=== PATIENT | male | born 1930 | race Caucasian/White ===

== ENCOUNTER 2016-07-03 09:12 | Outpatient (CLI) | payer MEDICARE ==
[~2016-07-03 09:12] MED LIST: ALBUTEROL-200 PUFFS/ IH; ALBUTEROL2.5 MG/NEB IN; ALPRAZOLAM0.25 M2 PO; AMIODARONE 200200 MG PO; AMOXICILLIN 50500 MG PO; ASPIRIN 81MG TA81 MG PO; BUSPAR 10MG TAB10 MG PO; CEFDINIR 300MG300 MG PO; CLARITIN LIQUI-10 MG PO; CLARITIN10 MG OR; DOXYCYCLINE50 M1 PO; FUROSEMIDE 40MG40 M1 PO; GABAPENTIN100 M1 PO; GABAPENTIN100 MG PO; GABAPENTIN300 M1 PO; GLYCOLAX17 GM/DOSE PO; HYDROCODONE BIT1 T44 PO; HYDROCODONE-APA1 TA1 PO; KEFLEX 500MG.500 MG PO; LEVAQUIN500 MG PO; LEVOTHYROXIN0.112 M1 PO; LEVOTHYROXIN0.125 M1 PO; LIPOFLAVOVIT C1 EACH PO; LISINOPRIL 10MG10 MG PO; LISINOPRIL5 MG PO; LORTAB 5/3251 TAB PO; METHOCARBAMOL500 MG PO; METOPROLOL SUCC50 M2 PO; NORCO 325 MG-51 TAB PO; PANTOPRAZOLE SO40 M1 PO; PANTOPRAZOLE SO40 MG PO; PRAVASTATIN 40M40 MG PO; PREDNISONE 10MG10 MG PO; RANITIDINE HCL150 MG PO; RANITIDINE150 M1 PO; RESTORIL 15MG C15 MG PO; ROBAXIN 500 MG500 MG PO; SPIRIVA HA1 PUFF/INH IH; SPIRIVA18 MCG IH; TAMSULOSIN HYD0.4 MG PO; TEMAZEPAM15 MG PO; TESSALON PERLE100 MG PO; TOPROL XL 50MG50 MG PO; TUSSIONEX PENN115 ML PO; VITAMIN D1000 IU PO; WARFARIN 3MG TAB3 MG PO; WARFARIN SODIUM3 MG PO; XANAX 0.25MG0.25 MG PO; ZANTAC 150150 MG PO; [UNRECOGNIZED DRUG - OTHER] PO
== END 2016-07-03 11:32 ==
LOC: ACC 09:12
DX: Z95.0 Presence of cardiac pacemaker (principal); Z79.01 Long term (current) use of anticoagulants; Z51.81 Encounter for therapeutic drug level monitoring
CPT/HCPCS: G0463

== ENCOUNTER 2016-07-24 18:09 | Emergency (ER) | payer MEDICARE ==
[~2016-07-24] VITALS: Ht 175.3 cm; Wt 92.8 kg
--- NOTE | 2016-07-24 18:34 | Urgent Treatment Center Report ---
History of Present Issue Date/Time Seen by Provider 07/24/166 Visit Reason Pt arrived:Walked Presenting Problem:PT C/O COUGH, RUNNY NOSE, AND SORE THROAT. PT ALSO C/O "POPPING" IN HIS EARS. PT STATES HE CAN'T SLEEP D/T COUGHING Location if Accident: Onset of symptoms date/time:/ or onset unknown for:MEDICAL HX UNKNOWN Have you (or family members/close friends) recently traveled outside the [place]? N If Yes, where/when: Have you had exposure to infectious disease within the past month? TB? Other? Specify: Patient states that he has been having cough, runny nose sore throat and having pain and a popping in his left ear. States that coughing gets worse when he lays down at night ALLERGIES Coded Allergies: sulindac (Mild, JAUNDICE 07/07/16) esomeprazole (From Nexium) (Intermediate, N/V/D 07/07/16) niacin (Intermediate, FLUSHING 07/07/16) Home Medications Active Scripts Loratadine (Claritin) 10 MG PO DAILY #10 SGL Prov: 01/22/16 Reported Medications Warfarin Sodium (Warfarin 3MG) 1.5 MG PO MoWeFr LISINOPRIL (Lisinopril) 10 MG PO DAILY Metoprolol Succinate Xl (Toprol Xl) 50 MG PO BID WARFARIN SOD (Warfarin 3MG) 3 MG PO SuTuThSa Methocarbamol (Robaxin 500MG) 500 MG PO NIGHTLY Buspirone Hcl (Buspar 10MG) 10 MG PO BID #60 TAB Lisinopril 5 MG PO DAILY #90 TAB Polyethylene Glycol 3350 (Glycolax) 17 GM PO DAILY 30 Days Amiodarone Hcl (Amiodarone 200MG) 100 MG PO DAILY Alprazolam 0.25 MG PO TID PRN ANXIETY #1 TAB Furosemide 40 MG PO DAILY #1 TAB CHOLECALCIFEROL (VITAMIN D3) (Vitamin D3) 5,000 IUNITS PO SAT & WED Temazepam (Temazepam 15MG) 15 MG PO QHS Tiotropium [place] (Spiriva) 18 MCG IH DAILY PRN BREATHING Bioflav,Lemon/Vit Bcomp&C (Lipoflavovit Caplet) 1 EACH PO TID Levothyroxine Sodium (Levothyroxine 0.112MG) 0.112 MG PO DAILY #30 TAMSULOSIN HCL (Tamsulosin 0.4MG) 0.4 MG PO QHS Ranitidine Hcl (Zantac) 150 MG PO DAILY Albuterol (Albuterol-Hfa Inhaler) 1 PUFF IH PRN PRN BREATHING ASPIRIN (Aspirin) 81 MG PO DAILY Temazepam (Restoril 15MG) 15 MG PO QHS #30 PRAVASTATIN SODIUM (Pravastatin Sodium) 40 MG PO QHS History Medical History General CAD? No Angina: No VA: No Hypertension? Yes Hyperlipidemia? Yes CHF? No DVT? No PE? No COPD? Yes Asthma? No Anemia? No GERD? Yes Gastric ulcers? No GI Bleed? No Hernia? Yes Thyroid Problems? Yes Hypothyroidism? No CVA? No Seizures? No Diabetes? No Renal Insuffiency? No UTI? No Stones? No BPH? Yes GB Disease: No Nephritic Syndrome? No Asplenia? No Hepatitis? No Sickle Cell Disease? No Arthritis? Yes Migraines? No Cataracts? No Glaucoma? No MRSA? No HIV? No TB? No Anxiety? Yes Depression? 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 Respiratory cough Physical Exam Vital Signs Vital Signs Date Time Temp Pulse Resp B/P Pulse O2 O2 Flow FiO2 Ox Delivery Rate 07/24 1820 98.4 74 18 125/69 96 General Appearance normal appearance Ear, Nose, Throat sinus pain/drainage, nasal congestion, tonsillar swelling, Throat red, left ear bright red, tubes in place Respiratory Status Yes: trachea midline, chest symmetrical, non tender chest. No: respiratory distress. Cardiovascular normal exam, no peripheral edema, no gallop, no JVD, no murmur Neurologic alert, normal exam, no motor/sensory deficits, oriented x 3 Medical Decision Making LABS/Meds/Orders Pt receiving controlled substance in ED? No Results/Orders Laboratory Tests 07/24/161823: Influenza Type A Ag NOT DETECTED, Influenza Type B Ag NOT DETECTED, Group A Strep Screen NOT DETECTED Orders Procedure Date/time Status UTC STREP SCREEN 07/24 1823 Complete UTC FLU A,B 07/24 1823 Complete Departure Departure Disposition DC Home or Self Care(routine) Clinical Impression Primary Impression: Otitis media Qualifiers: Otitis media type: unspecified Laterality: left Chronicity: unspecified Qualified Code: H66.92 - Otitis media, unspecified, left ear Condition STABLE Referrals Rodney BLACK,Serafin (Family) Patient Instructions DI for Otitis Media (Middle Ear Infection)-Child Additional Instructions Take Medication as prescribed Follow up family doctor Return if needed Discharge Counseling Counseled pt/family regarding diagnosis, test results, medications/RX, home care Prescriptions Current Visit Scripts Amoxicillin Trihydrate (Amoxicillin 500MG) 500 MG PO Q12H #20 CAP DEXTROMETHORPHAN HBR (Tussin Cough) 15 MG PO BIDP PRN cough #40 ML at 1855
[2016-07-24 18:43] LABS: UTC STREP SCREEN NOT DETECTED (NOTDETECTED)
[2016-07-24] MEDS ORDERED: TOPCARE TU PO (18:51)
[2016-07-24] MEDS ORDERED: AMOXICILLIN 50500 MG PO (18:51)
[2016-07-24 19:06] VITALS: BP 125/69
== END 2016-07-24 19:06 | disposition home or self-care (01) ==
LOC: UTC 18:09
PROVIDERS: Nurse Practitioner
DX: H66.92 Otitis media, unspecified, left ear (principal); I10 Essential (primary) hypertension; J44.9 Chronic obstructive pulmonary disease, unspecified

== ENCOUNTER 2016-09-30 08:09 | Emergency (ER) | payer MEDICARE ==
[~2016-09-30] VITALS: Ht 175.3 cm; Wt 91.2 kg
[~2016-09-30 08:09] MED LIST changes: +TOPCARE TU PO
--- NOTE | 2016-09-30 08:30 | Emergency Room Report ---
History of Present Illness Time Seen by MD Christian Presenting Problem in Triage Pt arrived:Walked Presenting Problem:Pt reports that urine has been discolored for the past 3-4 days and he wants to make sure he doesn't "have blood in his kidneys." Pt denies any pain/discomfort. 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 N Clinical Suspician of Infection? N Mental Status: 1 - Regular (Normal Baseline) Sepsis Risk:Low Sepsis Risk Have you (or family members/close friends) recently traveled outside the [place]? N If Yes, where/when: Have you had exposure to infectious disease within the past month? N TB? Other? Specify: Source patient, RN notes reviewed Exam Limitations no limitations Comment Pt has noticed a dark urine for the past 3 to 4 days. 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 Cardiac Chest Pain Chest pain indicative of cardiac No ALLERGIES Coded Allergies: sulindac (Mild, JAUNDICE 07/07/16) esomeprazole (From Nexium) (Intermediate, N/V/D 07/07/16) niacin (Intermediate, FLUSHING 07/07/16) Home Medications Active Scripts Amoxicillin Trihydrate (Amoxicillin 500MG) 500 MG PO Q12H #20 CAP Prov: 07/24/16 Loratadine (Claritin) 10 MG PO DAILY #10 SGL Prov: 01/22/16 Reported Medications Warfarin Sodium (Warfarin 3MG) 1.5 MG PO MoWeFr Metoprolol Succinate Xl (Toprol Xl) 50 MG PO BID WARFARIN SOD (Warfarin 3MG) 3 MG PO SuTuThSa Methocarbamol (Robaxin 500MG) 500 MG PO NIGHTLY Buspirone Hcl (Buspar 10MG) 10 MG PO BID #60 TAB Lisinopril 5 MG PO DAILY #90 TAB Polyethylene Glycol 3350 (Glycolax) 17 GM PO DAILY 30 Days Amiodarone Hcl (Amiodarone 200MG) 100 MG PO DAILY Alprazolam 0.25 MG PO TID PRN ANXIETY #1 TAB Furosemide 40 MG PO DAILY #1 TAB CHOLECALCIFEROL (VITAMIN D3) (Vitamin D3) 5,000 IUNITS PO SAT & WED Tiotropium [place] (Spiriva) 18 MCG IH DAILY PRN BREATHING Bioflav,Lemon/Vit Bcomp&C (Lipoflavovit Caplet) 1 EACH PO TID Levothyroxine Sodium (Levothyroxine 0.112MG) 0.112 MG PO DAILY #30 TAMSULOSIN HCL (Tamsulosin 0.4MG) 0.4 MG PO QHS Ranitidine Hcl (Zantac) 150 MG PO DAILY Albuterol (Albuterol-Hfa Inhaler) 1 PUFF IH PRN PRN BREATHING ASPIRIN (Aspirin) 81 MG PO DAILY Temazepam (Restoril 15MG) 15 MG PO QHS #30 PRAVASTATIN SODIUM (Pravastatin Sodium) 40 MG PO QHS History Medical History General CAD? No Angina: No [place]: No Hypertension? Yes Hyperlipidemia? Yes CHF? No DVT? No PE? No COPD? Yes Asthma? No Anemia? No GERD? Yes Gastric ulcers? No GI Bleed? No Hernia? Yes Thyroid Problems? Yes Hypothyroidism? No CVA? No Seizures? No Diabetes? No Renal Insuffiency? No End Stage Renal Disease? No UTI? No Stones? No BPH? Yes GB Disease: No Nephritic Syndrome? No Asplenia? No Hepatitis? No Sickle Cell Disease? No Arthritis? Yes Migraines? No Cataracts? No Glaucoma? No MRSA? No HIV? No TB? No Anxiety? Yes Depression? 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 No Immunization Hx DT/Tetanus 1-4 Years Ago Flu 2015-17FSN Pneumonia Refuses Surgical Hx Previous Surgery?Y PACEMAKER HEART STENTS GALLBLADDER COLON RESECTION CATARACTS EAR TUBES 12/13 LESIONS FACE HERNIA SURGERY Family History Family Hx Diabetes No CAD Yes Hypertension Yes Hyperlipidemia Yes Cancer Yes TB No Social History Smoking Hx Smoker: Former Smoker Tobacco: No Packs/day N/A Alcohol Alcohol: No Review of Systems All Other Systems Reviewed and Negative Constitutional see HPI Cardiovascular see HPI Genitourinary see HPI. Physical Exam Vital Signs Vital Signs Date Time Temp Pulse Resp B/P Pulse O2 O2 Flow FiO2 Ox Delivery Rate 09/30 0943 98.0 70 18 119/66 96 09/30 0900 97.9 78 18 114/58 95 09/30 0815 97.8 70 18 117/64 95 General Appearance normal appearance, WD/WN, no apparent distress Respiratory Status No: respiratory distress. Lung Sounds bilateral: normal breath sounds. 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 No Results/Orders Laboratory Tests 09/30/16 0844: Sodium 143, Potassium 3.6, Chloride 106, Carbon Dioxide 28, BUN 14, Creatinine 1.7 H, Estimated Creat Clear 40 L, Estimated GFR (MDRD) 38, Glucose 114 H, Calcium 8.3 L, Total Bilirubin 0.9, AST 24, ALT 33, Alkaline Phosphatase 81, Total Protein 6.9, Albumin 3.8, Globulin 3.1, Albumin/Globulin Ratio 1.2, PT 31.7 H, INR 2.96 H, WBC 4.0 L, RBC 4.18 L, Hgb 13.9 L, Hct 41.2 L, MCV 98.5 H, RDW 13.5, Plt Count 158, MPV 6.0 L, Gran % 70.9, Gran # 2.8, Lymphocytes % 21.5, Monocytes % 4.1, Eosinophils % 2.8, Basophils % 0.6, Lymphocytes # 0.9, Monocytes # 0.2, Eosinophils # 0.1, Basophils # 0.0, PUBS MCHC 33.8, MCH 33.3 H 09/30/16 0824: Urine Color SHANELLE, Urine Appearance TURBID, Urine pH 6.5, Ur Specific [place] 1.020, Urine Protein 1+ H, Urine Ketones NEGATIVE, Urine Blood 3+ H, Urine Nitrate NEGATIVE, Urine Bilirubin NEGATIVE, Urine Urobilinogen 4.0, Ur Leukocyte Esterase TRACE H, Urine RBC 50-100, Urine WBC OCC, Urine Bacteria TRACE, Urine Mucus OCC, Urine Glucose NEGATIVE Orders Procedure Date/time Status KUB (SINGLE VIEW) 09/30 899 Active URINALYSIS/COMPLETE 09/30 829 Complete PROTHROMBIN TIME 09/30 829 Complete CBC WITH AUTO DIFF 09/30 829 Complete CHEM 12 PROFILE 09/30 829 Complete XRAY/CT/US XRAY/CT/US XRAY abdomen XR interpretation by reviewed by me Xray Results large stone in bladder Departure Departure Time of Disposition 0956 Disposition DC Home or Self Care(routine) Clinical Impression Primary Impression: Hematuria Secondary Impressions: Bladder stone, Cystitis with hematuria Condition STABLE Referrals Serafin Steevns MD (Family): 2 Days-Call Office Patient Instructions Acute Cystitis, Blood in Urine, Cystolitholapaxy, DI for Acute Cystitis, DI for Hematuria Additional Instructions Followup with Dr Stevens in 2 days to get referral to get Bladder stone removed and to recheck Urine Discharge Counseling Counseled pt/family regarding diagnosis, test results, medications/RX, home care, follow up needs Prescriptions Current Visit Scripts Amoxicillin (Amoxicillin 500MG) 500 MG PO TID #30 CAP ED Critical Care Critical Care No If Critical Care minutes are documented, the time involved in the performance of seperately reportable procedures was not counted toward critical care time documented. I directly delivered medical care to this critically ill and/or injured patient. Timely evaluation and treatment was necessary to address the significant organ system(s) dysfunction present in this patient. at 0913
[2016-09-30 08:38] LABS: URINE BLOOD 3+ (NEG)
[2016-09-30 08:42] LABS: URINE BILIRUBIN - DIPSTICK NEGATIVE (NEG)
[2016-09-30 08:52] LABS: HEMOGLOBIN 13.9 g/dL (14.1-18.0); LYMPH # 0.9 K/mm3 (0.7-4.5); LYMPH % 21.5 % (10-50)
[2016-09-30] MEDS ORDERED: AMOXICOT500 MG PO (09:59)
[2016-09-30 10:05] VITALS: BP 139/76
--- NOTE | 2016-10-01 14:54 | RADIOLOGY REPORT PS360 ---
KUB (SINGLE VIEW) Ordering Physician: Cornelia Pierre MD Patient Age: 86 years: Male HISTORY: hematuria previous cholecystectomy. History of obstruction. Hernia repair 2 years ago. TECHNIQUE: Supine AP image abdomen radiograph. . COMPARISON is made to previous CT abdomen 07/19/2014 which is helpful FINDINGS. No bowel dilatation or obstruction. Upper generous stool at the right colon with moderate stool throughout the left colon. Minimal stool rectosigmoid. Minimal small bowel gas Suggestion mild Splenomegaly.. Radiographically Spleen Measures up to 16 cm length on the supine filmClinical correlation required. Stable 16 mm x 10 mm mm calcified density at the pelvis. No urinary tract calculi evident There is a vague round soft tissue density measuring 3 cm] quadrant on this study but I suspect this is the portion of the liver outlined fatty tissue as seen on prior CT from 2014. Doubt of significance. Degenerative changes lumbar spine with disc space narrowing most evident L4/5 the right. Also disc space narrowing from the L3/4. Marginal osteophytes. IMPRESSION: Splenomegaly suggested. Warrants clinical correlation Otherwise Nonspecific bowel gas pattern. No acute findings abdomen/pelvis on plain film Moderate/generous stool right colon observed with Less evident minimal stool and gas throughout the remainder of colon ---Note please fax report to ER-
--- OUTSIDE RECORDS SUMMARY | 2016-10-01 22:12 | External Medical Summary Rpt ---
Author Author , Organization [employer] Address Unknown Phone Unavailable Purpose Continuity of Care Document - through 2016 Problems Code Diagnosis DOS Provider Status I48.0 PAROXYSMAL ATRIAL FIBRILLATIO N I48.91 UNSPECIFIED ATRIAL FIBRILLATIO N J02.9 ACUTE PHARYNGITIS , UNSPECIFIED J06.9 ACUTE UPPER RESPIRATORY INFECTION, UNSPECIFIED J30.2 OTHER SEASONAL ALLERGIC RHINITIS J32.9 CHRONIC SINUSITIS, UNSPECIFIED K21.9 GASTRO-ESOP HAGEAL REFLUX DISEASE WITHOUT ESOPHAGITIS K29.70 GASTRITIS, UNSPECIFIED , WITHOUT BLEEDING N21.0 CALCULUS IN BLADDER N28.9 DISORDER OF KIDNEY AND URETER, UNSPECIFIED N30.91 CYSTITIS, UNSPECIFIED WITH HEMATURIA R07.9 CHEST PAIN, UNSPECIFIED R31.9 HEMATURIA, UNSPECIFIED R79.1 ABNORMAL COAGULATION PROFILE Z53.21 PROC/TRTMT NOT CRD OUT D/T PT [facility] SEEN BY [facility]
--- OUTSIDE RECORDS SUMMARY | 2016-10-01 22:12 | External Medical Summary Rpt ---
Demographics Preferred Language Sierra Leonean Marital Status Unknown Quaker Affiliation Unknown Race Unknown Ethnic Group Unknown Author Author , Organization [employer] Address Unknown Phone Unavailable Purpose Continuity of Care Document - through 2016 Immunization No patient found.
--- OUTSIDE RECORDS SUMMARY | 2016-10-01 22:12 | External Medical Summary Rpt ---
Author Author [employer] Organization [employer] Address Unknown Phone Unavailable Purpose Continuity of Care Document - through 2016
--- OUTSIDE RECORDS SUMMARY | 2016-10-01 22:12 | External Medical Summary Rpt ---
Demographics Preferred Language Italian Marital Status Unknown Zoroastrian Affiliation Unknown Race Unknown Ethnic Group Unknown Author Author , Organization [employer] Address Unknown Phone Unavailable Purpose Continuity of Care Document - through 2016 Immunization No patient found.
--- OUTSIDE RECORDS SUMMARY | 2016-10-01 22:12 | External Medical Summary Rpt ---
Author Author ONI Holland, [employer] Organization [employer] Address Unknown Phone Unavailable Payers Section Payer Plan Name Group ID Member ID Coverage Coverage Start End Date Date MEDICARE "" [id number] No No A informati informati on in on in source source data data UMR "" [id number] No No 809 informati informati on in on in source source data data
--- OUTSIDE RECORDS SUMMARY | 2016-10-01 22:12 | External Medical Summary Rpt ---
[...] OUT D/T PT [facility]
--- OUTSIDE RECORDS SUMMARY | 2016-10-01 22:12 | External Medical Summary Rpt ---
Author Author ONI Holland, [employer] Organization [employer] Address Unknown Phone Unavailable Payers Section Payer Plan Name Group ID Member ID Coverage Coverage Start End Date Date MEDICARE "" [id number] No No A informati informati on in on in source source data data UMR "" [id number] No No 809 informati informati on in on in source source data data
--- OUTSIDE RECORDS SUMMARY | 2016-10-01 22:13 | External Medical Summary Rpt ---
[...] OUT D/T PT LV [facility]F SEEN BY [facility]
--- OUTSIDE RECORDS SUMMARY | 2016-10-01 22:13 | External Medical Summary Rpt ---
Demographics Preferred Language Botswanan Marital Status Unknown Denominational Affiliation Unknown Race Unknown Ethnic Group Unknown Author Author , Organization [employer] Address Unknown Phone Unavailable Purpose Continuity of Care Document - through 2016 Immunization No patient found.
--- OUTSIDE RECORDS SUMMARY | 2016-10-01 22:13 | External Medical Summary Rpt ---
Author Author ONI Holland, [employer] Organization [employer] Address Unknown Phone Unavailable Payers Section Payer Plan Name Group ID Member ID Coverage Coverage Start End Date Date MEDICARE "" [id number] No No A informati informati on in on in source source data data UMR "" [id number] No No 809 informati informati on in on in source source data data
--- OUTSIDE RECORDS SUMMARY | 2016-10-01 22:13 | External Medical Summary Rpt ---
Demographics Preferred Language Ugandan Marital Status Unknown Tenriism Affiliation Unknown Race Unknown Ethnic Group Unknown Author Author , Organization [employer] Address Unknown Phone Unavailable Purpose Continuity of Care Document - through 2016 Immunization No patient found.
--- OUTSIDE RECORDS SUMMARY | 2016-10-01 22:13 | External Medical Summary Rpt ---
Author Author ONI Holland, [employer] Organization [employer] Address Unknown Phone Unavailable Payers Section Payer Plan Name Group ID Member ID Coverage Coverage Start End Date Date MEDICARE "" [id number] No No A informati informati on in on in source source data data UMR "" [id number] No No 809 informati informati on in on in source source data data
--- OUTSIDE RECORDS SUMMARY | 2016-10-01 22:13 | External Medical Summary Rpt ---
[...] OUT D/T PT LV [facility]F SEEN BY [facility]
== END 2016-09-30 10:05 | disposition home or self-care (01) ==
LOC: ER 08:09
PROVIDERS: General Practice
DX: N30.01 Acute cystitis with hematuria (principal); N21.0 Calculus in bladder; K21.9 Gastro-esophageal reflux disease without esophagitis; I48.2 Chronic atrial fibrillation; Z79.01 Long term (current) use of anticoagulants; Z95.0 Presence of cardiac pacemaker

== ENCOUNTER 2016-10-03 09:15 | Outpatient (CLI) | payer MEDICARE ==
[~2016-10-03 09:15] MED LIST changes: +AMOXICOT500 MG PO
== END 2016-10-03 13:26 ==
LOC: ACC 09:15
DX: Z95.0 Presence of cardiac pacemaker (principal); Z79.01 Long term (current) use of anticoagulants; Z51.81 Encounter for therapeutic drug level monitoring
CPT/HCPCS: G0463

== ENCOUNTER 2016-11-07 11:59 | Outpatient (CLI) | payer MEDICARE ==
[~2016-11-07 11:59] MED LIST changes: +LEVOTHYROXIN0.125 MG PO; +OXYGEN IH; +OXYGEN2 IH
== END 2016-11-07 16:23 ==
LOC: ACC 11:59
DX: Z95.0 Presence of cardiac pacemaker (principal); Z79.01 Long term (current) use of anticoagulants; Z51.81 Encounter for therapeutic drug level monitoring
CPT/HCPCS: G0463

== ENCOUNTER 2016-12-30 09:31 | Emergency (ER) | payer MEDICARE ==
[~2016-12-30] VITALS: Ht 175.3 cm; Wt 86.2 kg
[~2016-12-30 09:31] MED LIST changes: +CARAFATE1 GM PO
--- OUTSIDE RECORDS SUMMARY | 2016-12-30 10:04 | External Medical Summary Rpt ---
Demographics Preferred Language Kazakh Marital Status Unknown Catholic Affiliation Unknown Race Unknown Ethnic Group Unknown Author Author , SHARMILA BUNN Address Unknown Phone Immunization Unable to retrieve immunization data due to connection failure with Immunization Registry. Please try again later.
--- OUTSIDE RECORDS SUMMARY | 2016-12-30 10:04 | External Medical Summary Rpt ---
Author Author , ONI BUNN Address Unknown Phone [email or web address] Purpose Continuity of Care Document - 10-28-2016 through 2016 Results Labs Lab Lab Date Result Refere Interp Status Commen Order Detail nces retati t Range on Differential panel, method unspecified - (10-31-2016 06:13) LYMPH 10 % 10% - Normal complet 017 50% ed 06:13 Macrocy 1+ complet felix 017 ed [Presen 06:13 ce] in Blood Platele SLIGHT complet ts 017 DECREAS ed [Presen 06:13 E ce] in Blood by Light microsc opy Differential panel, method unspecified - (10-29-2016 06:25) LYMPH 4 % 10% - Low complet 017 50% ed 06:25 Macrocy 1+ complet felix 017 ed [Presen 06:25 ce] in Blood Platele SLIGHT complet ts 017 DECREAS ed [Presen 06:25 E ce] in Blood by Light microsc opy Toxic 1+ complet granule 017 ed s 06:25 [Presen ce] in Blood by Light microsc opy Legionella pneumophila 1 Ag [Presence] in Urine by Immunoassay (10-28-2016 15:43) Legione Negativ Negativ complet lla 017 e e ed pneumop 15:43 gino 1 Ag [Presen ce] in Urine by Immunoa ssay Gas panel in Arterial blood (10-28-2016 11:19) Arteria ACCEPTA complet l 017 BLE ed patency 11:19 Wrist artery --pre arteria l punctur e SOURCE L complet 017 RADIAL ed 11:19 Mycoplasma pneumoniae IgM Ab [Presence] in Serum by Immunoassay (10-28-2016 10:10) Mycopla NON-BARB NONREAC complet sma 017 CTIVE TIVE ed pneumon 10:10 iae IgM Ab [Presen ce] in Serum by Immunoa ssay Influenza virus A+B Ag [Presence] in Unspecified specimen (10-28-2016 09:55) Influen NOT NOT complet za 017 DETECTE DETECTD ed virus A 09:55 D Ag [Presen ce] in Unspeci fied specime n Influen NOT NOT complet za 017 DETECTE DETECTD ed virus B 09:55 D Ag [Presen ce] in Unspeci fied specime n Urinalysis dipstick W Reflex Microscopic panel in Urine (10-28-2016 09:52) Appeara Clear CLEAR complet nce of ed Urine 09:52 Bilirub SMALL NEG complet in 017 ed [Presen 09:52 ce] in Urine by Test strip Erythro MODERAT NEG complet cytes 017 E ed [Presen 09:52 ce] in Urine Color YELLOW YELLOW complet of 017 ed Urine 09:52 Ketones NEGATIV NEG complet 017 E ed [Presen 09:52 ce] in Urine by Automat ed test strip Mucus NEGATIV NEG complet [Presen 017 E ed ce] in 09:52 Urine sedimen t by Light microsc opy Nitrite NEGATIV NEG complet 017 E ed [Presen 09:52 ce] in Urine by Test strip Urobili 1.0 NEG complet nogen 017 ed [Presen 09:52 ce] in Urine by Test strip
--- OUTSIDE RECORDS SUMMARY | 2016-12-30 10:04 | External Medical Summary Rpt ---
Author Author , ONI BUNN Address Unknown Phone [email or web address] Purpose Continuity of Care Document - 10-28-2016 [...]
--- OUTSIDE RECORDS SUMMARY | 2016-12-30 10:04 | External Medical Summary Rpt ---
Demographics Preferred Language [place]az[place] Marital Status Unknown Confucianism Affiliation Unknown Race Unknown Ethnic Group Unknown Author Author , SHARMILA BUNN Address Unknown Phone Immunization Unable to retrieve immunization data due to connection failure with Immunization Registry. Please try again later.
[2016-12-30 10:06] LABS: HEMOGLOBIN 12.1 g/dL (14.1-18.0); LYMPH # 1.1 K/mm3 (0.7-4.5); LYMPH % 20.5 % (10-50)
--- OUTSIDE RECORDS SUMMARY | 2016-12-30 10:06 | External Medical Summary Rpt ---
Author Author ONI Holland, KERENNICKO [employer] Organization [employer] Address Unknown Phone Unavailable Payers Section Payer Plan Name Group ID Member ID Coverage Coverage Start End Date Date MEDICARE "" [id number] No No A informati informati on in on in source source data data UMR "" [id number] No No 809 informati informati on in on in source source data data Results INR in Blood by Coagulation assay Observa Value Referen Units Interpr Notes Date tion ce etation Range INR in 0.9 - 1.1 No High Results Dec 22 Blood by informati sent to: 2016 Coagulati on in [facility] 11:00 AM on assay source Ginger BLACK data n 12/22/16 [id number] Trae jackson mmlea Pharmacis t recommend ation for Warfarint herapy is: PATIENT INR 2.3 TODAY VIA FINGERSTI CK.RECOMM ENDED PATIENT CONTINUE WITH CURRENT DOSE OF WARFARIN3 MG ON SUN/SUN/ HU/SUN; 1.5 MG ON SUN/SUN/ RI.FO R DETAILED INFORMATI ON-PLEASE REVIEW PROGRESS NOTEI N THE ASSESSMEN TS AND ANTICOAGU LATION CLINIC SECTIONAN TICOAGULA TION CLINIC IN PCI/CLINI VLADIMIR REVIEWIND ICATION INR RANGETHER APY FOR DVT, PE, ATRIAL FIB; 2.0 - 3.0PROPHY LAXIS FOR VTETHERAP Y FOR MECHANICA L HEART 2.5 - 3.5VALVE; PREVENTIO N OF SYSTEMICE MBOLISM SECONDARY TO AMI INR in Blood by Coagulation assay Observa Value Referen Units Interpr Notes Date tion ce etation Range IS PATIENT ON ANTICOAGULANTS? Y LIST ANTICOAGULANTS: WARFARIN INR in 0.9 - 1.1 No High INDICATIO Dec 18 Blood by informati N 2016 1:55 Coagulati on in AM on assay source INR data RANGETHER APY FOR DVT, PE, ATRIAL FIB; 2.0 - 3.0PROPHY LAXIS FOR VTETHERAP Y FOR MECHANICA L HEART 2.5 - 3.5VALVE; PREVENTIO N OF SYSTEMICE MBOLISM SECONDARY TO AMI Prothromb 9.4 - SECONDS High No Dec 18 in time 11.8 informati 2016 1:55 (PT) in on in AM Platelet source poor data plasma by Coagulati on assay CBC W Auto Differential panel in Blood Observa Value Referen Units Interpr Notes Date tion ce etation Range Basophils 0 - 0.2 K/MM3 Normal No Dec 18 informati 2016 1:55 [#/volume on in AM ] in source Blood by data Automated count Basophils 0.1 - 2.0 % Normal No Dec 18 /100 informati 2017 1:55 leukocyte on in AM s in source Blood by data Automated count Eosinophi 0.0 - 0.4 K/mm3 Normal No Dec 18 ls informati 2016 1:55 [#/volume on in AM ] in source Blood by data Automated count Eosinophi 0.1 - % Normal No Dec 18 ls/100 12.0 informati 2016 1:55 leukocyte on in AM s in source Blood by data Automated count Granulocy 1.3 - 8.0 K/mm3 Normal No Dec 18 felix informati 2016 1:55 [#/volume on in AM ] in source Blood by data Automated count Granulocy 37.0 - % Normal No Dec 18 felix/100 80.0 informati 2016 1:55 leukocyte on in AM s in source Blood by data Automated count Hematocri 42.0 - % Low No Dec 18 t [Volume 52.0 informati 2016 1:55 on in AM Fraction] source of Blood data Hemoglobi 14.1 - g/dL Low No Dec 18 n 18.0 informati 2016 1:55 [Mass/vol on in AM ume] in source Blood data Lymphocyt 0.7 - 4.5 K/mm3 Normal No Dec 18 es informati 2016 1:55 [#/volume on in AM ] in source Unspecifi data ed specimen by Automated count Lymphocyt 10 - 50 % Normal Dec 18 es informati 2016 1:55 [#/volume on in AM ] in source Unspecifi data ed specimen by Automated count Erythrocy 27 - 31.2 pg High No Dec 18 te mean informati 2016 1:55 corpuscul on in AM ar source hemoglobi data n [Entitic mass] Erythrocy 31.8 - g/dl Normal No Dec 18 te mean 35.4 informati 2016 1:55 corpuscul on in AM ar source hemoglobi data n concentra tion [Mass/vol ume] by Automated count Erythrocy 82.2 - fl Normal No Dec 18 te mean 97.8 informati 2016 1:55 corpuscul on in AM ar volume source [Entitic data volume] by Automated count Monocytes 0.1 - 1.0 K/mm3 Normal No Dec 18 informati 2016 1:55 [#/volume on in AM ] in source Blood by data Automated count Monocytes 1.7 - 9.3 % Normal No Dec 18 /100 informati 2016 1:55 leukocyte on in AM s in source Blood by data Automated count Platelet 7.4 - fl Low No Dec 18 mean 10.4 informati 2016 1:55 volume on in AM [Entitic source volume] data in Blood by Automated count Platelets 142 - 424 K/mm3 Normal No Dec 18 inform2016 1:55 [#/volume on in AM ] in source Blood data Erythrocy 4.6 - 6.2 M/mm3 Low No Dec 18 felix informati 2016 1:55 [#/volume on in AM ] in source Amniotic data fluid Erythrocy 11.5 - % Normal No Dec 18 te 17.5 informati 2016 1:55 distribut on in AM ion width source [Entitic data volume] by Automated count Leukocyte 4.8 - K/MM3 Low No Dec 18 s 10.8 informati 2016 1:55 [#/volume on in AM ] in source Blood data INR in Blood by Coagulation assay Observa Value Referen Units Interpr Notes Date tion ce etation Range INR in 0.9 - 1.1 No High Results Dec 04 Blood by informati sent to: 2017 9:45 Coagulati on in [place] AM on assay source Ginger BLACK data n 12/04/16 [id number] Trae jackson mmy Pharmacis t recommend ation for Warfarint herapy is: PATIENT INR 1.9 TODAY VIA FINGERSTI CK.RECOMM ENDED PATIENT INCREASE WEEKLY DOSE BY 1.5 MG TOWARFARI N 3 MG ON SUN/SUN/T HU/SAT; 1.5 MG ON SUN/SUN/F RI.WILL FOLLOW UP IN 3 WEEKS. *FOR DETAILED INFORMATI ON-PLEASE REVIEW PROGRESS NOTEI N THE ASSESSMEN TS AND ANTICOAGU LATION CLINIC SECTIONAN TICOAGULA TION CLINIC IN PCI/CLINI VLADIMIR REVIEWIND ICATION INR RANGETHER APY FOR DVT, PE, ATRIAL FIB; 2.0 - 3.0PROPHY LAXIS FOR VTETHERAP Y FOR MECHANICA L HEART 2.5 - 3.5VALVE; PREVENTIO N OF SYSTEMICE MBOLISM SECONDARY TO AMI INR in Blood by Coagulation assay Observa Value Referen Units Interpr Notes Date tion ce etation Range IS PATIENT ON ANTICOAGULANTS? Y LIST ANTICOAGULANTS: COUMADIN INR in 0.9 - 1.1 No High INDICATIO Nov 26 Blood by informati N 2017 4:55 Coagulati on in PM on assay source INR data RANGETHER APY FOR DVT, PE, ATRIAL FIB; 2.0 - 3.0PROPHY LAXIS FOR VTETHERAP Y FOR MECHANICA L HEART 2.5 - 3.5VALVE; PREVENTIO N OF SYSTEMICE MBOLISM SECONDARY TO AMI Prothromb 9.4 - SECONDS High No Nov 26 in time 11.8 informati 2017 4:55 (PT) in on in PM Platelet source poor data plasma by Coagulati on assay Amylase [Enzymatic activity/volume] in Serum or Plasma Observa Value Referen Units Interpr Notes Date tion ce etation Range Amylase 25 - 115 U/L Normal No Nov 26 [Enzymati informati 2017 4:55 c on in PM activity/ source volume] data in Serum or Plasma Comprehensive metabolic 2000 panel in Serum or Plasma Observa Value Referen Units Interpr Notes Date tion ce etation Range Albumin/G 1.1 - 1.8 No Normal No Nov 26 lobulin informati informati 2017 4:55 [Mass on in on in PM ratio] in source source Serum or data data Plasma Albumin 3.4 - 5.0 gm/dL Normal No Nov 26 [Mass/vol informati 2017 4:55 ume] in on in PM Serum or source Plasma data Alkaline 46 - 116 U/L Normal No Nov 26 phosphata informati 2017 4:55 se on in PM [Enzymati source c data activity/ volume] in Serum or Plasma Bilirubin 0.2 - 1.0 mg/dL Normal No Nov 26 .total informati 2017 4:55 [Mass/vol on in PM ume] in source Serum or data Plasma Urea 7 - 18 mg/dL High No Nov 26 nitrogen informati 2017 4:55 [Mass/vol on in PM ume] in source Serum or data Plasma Calcium 8.5 - mg/dL Normal No Nov 26 [Mass/vol 10.1 informati 2016 4:55 ume] in on in PM Serum or source Plasma data Chloride 98 - 107 mmoL/L Normal No Nov 26 [Moles/vo informati 2016 4:55 lume] in on in PM Serum or source Plasma data Carbon 21.0 - mmoL/L High No Nov 26 dioxide, 32.0 informati 2017 4:55 total on in PM [Moles/vo source lume] in data Serum or Plasma Creatinin 0.70 - mg/dL High No Nov 26 e 1.30 informati 2017 4:55 [Mass/vol on in PM ume] in source Serum or data Plasma Creatinin 50 - 200 ML/MIN Low No Nov 26 e renal informati 2016 4:55 clearance on in PM source predicted data by Cockcroft -Gault formula Estimated >60 ML/MIN No REFERENCE Nov 26 informati RANGE: 2017 4:55 glomerula on in >60 PM r source ML/MIN/1. filtratio data 73 SQUARE n rate METERSIf (GF this patient is -A merican, then multiply theresult by 1.210. Globulin 1.3 - 3.2 gm/dL Normal No Nov 26 [Mass/vol informati 2016 4:55 ume] in on in PM Serum source data Glucose 74 - 106 mg/dL High No Nov 26 [Mass/vol informati 2016 4:55 ume] in on in PM Serum or source Plasma data Potassium 3.5 - 5.1 mmoL/L Normal No Nov 26 informati 2016 4:55 [Moles/vo on in PM lume] in source Serum or data Plasma Sodium 136 - 145 mmoL/L Normal No Nov 26 [Moles/vo informati 2017 4:55 lume] in on in PM Serum or source Plasma data Aspartate 15 - 37 U/L Low No Nov 26 informati 2016 4:55 aminotran on in PM sferase source [Enzymati data c activity/ volume] in Serum or Plasma Alanine 12 - 78 U/L Normal No Nov 26 aminotran informati 2016 4:55 sferase on in PM [Enzymati source c data activity/ volume] in Serum or Plasma Protein 6.4 - 8.2 gm/dL Normal No Nov 26 [Mass/vol informati 2017 4:55 ume] in on in PM Serum or source Plasma data Lipase [Enzymatic activity/volume] in Serum or Plasma Observa Value Referen Units Interpr Notes Date tion ce etation Range Lipase 73 - 393 U/L Normal No Nov 26 [Enzymati informati 2016 4:55 c on in PM activity/ source volume] data in Serum or Plasma CBC W Auto Differential panel in Blood Observa Value Referen Units Interpr Notes Date tion ce etation Range Basophils 0 - 0.2 K/MM3 Normal No Nov 26 informati 2016 4:55 [#/volume on in PM ] in source Blood by data Automated count Basophils 0.1 - 2.0 % Normal No Nov 26 /100 informati 2016 4:55 leukocyte on in PM s in source Blood by data Automated count Eosinophi 0.0 - 0.4 K/mm3 Normal No Nov 26 ls informati 2016 4:55 [#/volume on in PM ] in source Blood by data Automated count Eosinophi 0.1 - % Normal No Nov 26 ls/100 12.0 informati 2016 4:55 leukocyte on in PM s in source Blood by data Automated count Granulocy 1.3 - 8.0 K/mm3 Normal No Nov 26 felix informati 2016 4:55 [#/volume on in PM ] in source Blood by data Automated count Granulocy 37.0 - % Normal No Nov 26 felix/100 80.0 informati 2016 4:55 leukocyte on in PM s in source Blood by data Automated count Hematocri 42.0 - % Low No Nov 26 t [Volume 52.0 informati 2016 4:55 on in PM Fraction] source of Blood data Hemoglobi 14.1 - g/dL Low No Nov 26 n 18.0 informati 2016 4:55 [Mass/vol on in PM ume] in source Blood data Lymphocyt 0.7 - 4.5 K/mm3 Normal No Nov 26 es informati 2016 4:55 [#/volume on in PM ] in source Unspecifi data ed specimen by Automated count Lymphocyt 10 - 50 % Normal No Nov 26 es informati 2016 4:55 [#/volume on in PM ] in source Unspecifi data ed specimen by Automated count Erythrocy 27 - 31.2 pg High No Nov 26 te mean informati 2016 4:55 corpuscul on in PM ar source hemoglobi data n [Entitic mass] Erythrocy 31.8 - g/dl Normal No Nov 25 te mean 35.4 informati 2017 4:55 corpuscul on in PM ar source hemoglobi data n concentra tion [Mass/vol ume] by Automated count Erythrocy 82.2 - fl High No Nov 25 te mean 97.8 informati 2016 4:55 corpuscul on in PM ar volume source [Entitic data volume] by Automated count Monocytes 0.1 - 1.0 K/mm3 Normal No Nov 25 informati 2016 4:55 [#/volume on in PM ] in source Blood by data Automated count Monocytes 1.7 - 9.3 % Normal No Nov 25 /100 informati 2017 4:55 leukocyte on in PM s in source Blood by data Automated count Platelet 7.4 - fl Low No Nov 26 mean 10.4 informati 2017 4:55 volume on in PM [Entitic source volume] data in Blood by Automated count Platelets 142 - 424 K/mm3 Low No Nov 25 informati 2017 4:55 [#/volume on in PM ] in source Blood data Erythrocy 4.6 - 6.2 M/mm3 Low No Nov 25 felix informati 2017 4:55 [#/volume on in PM ] in source Amniotic data fluid Erythrocy 11.5 - % Normal No Nov 26 te 17.5 informati 2017 4:55 distribut on in PM ion width source [Entitic data volume] by Automated count Leukocyte 4.8 - K/MM3 Low No Nov 25 s 10.8 informati 2016 4:55 [#/volume on in PM ] in source Blood data Basic metabolic panel in Blood Observa Value Referen Units Interpr Notes Date tion ce etation Range Urea 7 - 18 mg/dL Normal No Nov 21 nitrogen informati 2016 [Mass/vol on in 10:20 AM ume] in source Serum or data Plasma Calcium 8.5 - mg/dL Normal No Nov 21 [Mass/vol 10.1 informati 2016 ume] in on in 10:20 AM Serum or source Plasma data Chloride 98 - 107 mmoL/L Normal No Nov 21 [Moles/vo informati 2017 lume] in on in 10:20 AM Serum or source Plasma data Carbon 21.0 - mmoL/L Normal No Nov 21 dioxide, 32.0 informati 2016 total on in 10:20 AM [Moles/vo source lume] in data Serum or Plasma Creatinin 0.70 - mg/dL High No Nov 21 e 1.30 informati 2017 [Mass/vol on in 10:20 AM ume] in source Serum or data Plasma Estimated >60 ML/MIN No REFERENCE Nov 21 informati RANGE: 2017 glomerula on in >60 10:20 AM r source ML/MIN/1. filtratio data 73 SQUARE n rate METERSIf (GF this patient is -A merican, then multiply theresult by 1.210. Glucose 74 - 106 mg/dL Normal No Nov 21 [Mass/vol informati 2016 ume] in on in 10:20 AM Serum or source Plasma data Potassium 3.5 - 5.1 mmoL/L Normal No Nov 21 informati 2016 [Moles/vo on in 10:20 AM lume] in source Serum or data Plasma Sodium 136 - 145 mmoL/L Normal No Nov 21 [Moles/vo informati 2016 lume] in on in 10:20 AM Serum or source Plasma data Thyrotropin [Units/volume] in Serum or Plasma Observa Value Referen Units Interpr Notes Date tion ce etation Range Thyrotrop 0.358 - uIU/ml No No Nov 21 in 3.740 informati informati 2016 [Units/vo on in on in 10:20 AM lume] in source source Serum or data data Plasma INR in Blood by Coagulation assay Observa Value Referen Units Interpr Notes Date tion ce etation Range INR in 0.9 - 1.1 No High Results Nov 13 Blood by informati sent to: 2017 Coagulati on in [facility] 10:30 AM on assay source Ginger BLACK data n 11/13/16 [id number] Trae jackson mmy Pharmacis t recommend ation for Warfarint herapy is: PATIENT INR 2.1 TODAY VIA FINGERSTI CK.RECOMM ENDED PATIENT INCREASE WEEKLY DOSE BY 1.5 MG TOWARFARI N 3 MG ON SUN/SUN/ RI; 1.5 MG ON SUN/SUN/T HU/SAT.WI LL FOLLOW UP IN 3 WEEKS. *FOR DETAILED INFORMATI ON-PLEASE REVIEW PROGRESS NOTEI N THE ASSESSMEN TS AND ANTICOAGU LATION CLINIC SECTIONAN TICOAGULA TION CLINIC IN PCI/CLINI VLADIMIR REVIEWIND ICATION INR RANGETHER APY FOR DVT, PE, ATRIAL FIB; 2.0 - 3.0PROPHY LAXIS FOR VTETHERAP Y FOR MECHANICA L HEART 2.5 - 3.5VALVE; PREVENTIO N OF SYSTEMICE MBOLISM SECONDARY TO AMI INR in Blood by Coagulation assay Observa Value Referen Units Interpr Notes Date tion ce etation Range INR in 0.9 - 1.1 No High Results Markus 6 Blood by informati sent to: 2017 Coagulati on in [facility] 12:30 PM on assay source Ginger BLACK data n 11/07/16 [id number] Trae jackson Pharmacis t recommend ation for Warfarint herapy is: PATIENT INR 2.3 TODAY VIA FINGERSTI CK.RECOMM ENDED PATIENT TAKE WARFARIN 3 MG ON SUN/SUN; 1.5 MG ONS/SUN /SUN/SUN/ SUN. PATIENT DOSE REDUCED AT THIS TIME ASPATIENT IS NOT EATING WELL. FOR DETAILED INFORMATI ON-PLEASE REVIEW PROGRESS NOTEI N THE ASSESSMEN TS AND ANTICOAGU LATION CLINIC SECTIONAN TICOAGULA TION CLINIC IN PCI/CLINI VLADIMIR REVIEWIND ICATION INR RANGETHER APY FOR DVT, PE, ATRIAL FIB; 2.0 - 3.0PROPHY LAXIS FOR VTETHERAP Y FOR MECHANICA L HEART 2.5 - 3.5VALVE; PREVENTIO N OF SYSTEMICE MBOLISM SECONDARY TO AMI CBC W Auto Differential panel in Blood Observa Value Referen Units Interpr Notes Date tion ce etation Range Basophils 0 - 0.2 K/MM3 Normal No October 31 informati 2016 6:13 [#/volume on in AM ] in source Blood by data Automated count Basophils 0.1 - 2.0 % Low No October 31 informati 2016 6:13 leukocyte on in AM s in source Blood by data Automated count Eosinophi 0.0 - 0.4 K/mm3 Normal No October 31 ls informati 2016 6:13 [#/volume on in AM ] in source Blood by data Automated count Eosinophi 0.1 - % Normal No October 31 ls/100 12.0 informati 2016 6:13 leukocyte on in AM s in source Blood by data Automated count Granulocy 1.3 - 8.0 K/mm3 Normal No October 31 felix informati 2016 6:13 [#/volume on in AM ] in source Blood by data Automated count Granulocy 37.0 - % High No October 31 felix/100 80.0 informati 2017 6:13 leukocyte on in AM s in source Blood by data Automated count Hematocri 42.0 - % Low No October 31 t [Volume 52.0 informati 2017 6:13 on in AM Fraction] source of Blood data Hemoglobi 14.1 - g/dL Low No October 31 n 18.0 informati 2017 6:13 [Mass/vol on in AM ume] in source Blood data Lymphocyt 0.7 - 4.5 K/mm3 Low October 31 es informati 2017 6:13 [#/volume on in AM ] in source Unspecifi data ed specimen by Automated count Lymphocyt 10 - 50 % Low No October 31 es informati 2016 6:13 [#/volume on in AM ] in source Unspecifi data ed specimen by Automated count Erythrocy 27 - 31.2 pg High No October 31 te mean informati 2017 6:13 corpuscul on in AM ar source hemoglobi data n [Entitic mass] Erythrocy 31.8 - g/dl Normal October 31 te mean 35.4 informati 2017 6:13 corpuscul on in AM ar source hemoglobi data n concentra tion [Mass/vol ume] by Automated count Erythrocy 82.2 - fl High No October 31 te mean 97.8 informati 2017 6:13 corpuscul on in AM ar volume source [Entitic data volume] by Automated count Monocytes 0.1 - 1.0 K/mm3 Normal No October 31 informati 2017 6:13 [#/volume on in AM ] in source Blood by data Automated count Monocytes 1.7 - 9.3 % Normal No October 31 /100 informati 2017 6:13 leukocyte on in AM s in source Blood by data Automated count Platelet 7.4 - fl Low No October 31 mean 10.4 informati 2017 6:13 volume on in AM [Entitic source volume] data in Blood by Automated count Platelets 142 - 424 K/mm3 Low No October 31 informati 2017 6:13 [#/volume on in AM ] in source Blood data Erythrocy 4.6 - 6.2 M/mm3 Low No October 31 felix informati 2017 6:13 [#/volume on in AM ] in source Amniotic data fluid Erythrocy 11.5 - % Normal October 31 te 17.5 informati 2017 6:13 distribut on in AM ion width source [Entitic data volume] by Automated count Leukocyte 4.8 - K/MM3 Normal No October 31 s 10.8 informati 2016 6:13 [#/volume on in AM ] in source Blood data Differential panel, method unspecified - Observa Value Referen Units Interpr Notes Date tion ce etation Range Neutrophi 0 - 8 % Normal No October 31 ls.band informati 2016 6:13 form/100 on in AM leukocyte source s in data Blood by Automated count LYMPH 10 10 - 50 % Normal No October 31 informa 2016 tion in 6:13 AM source data Macrocy 1+ No No No No October 31 felix informa informa informa informa 2016 [Presen tion in tion in tion in tion in 6:13 AM ce] in source source source source Blood data data data data Monocytes 2 - 9 % Normal No October 31 informati 2016 6:13 leukocyte on in AM s in source Blood by data Automated count Platele SLIGHT No No No No October 31 ts DECREAS informa informa informa informa 2016 [Presen E tion in tion in tion in tion in 6:13 AM ce] in source source source source Blood data data data data by Light microsc opy Neutrophi 42 - 76 % High No October 31 ls informati 2016 6:13 [#/volume on in AM ] in source Blood by data Automated count Cells No #CELLS No No October 31 Counted informati informati informati 2016 6:13 Total [#] on in on in on in AM in Blood source source source data data data Comprehensive metabolic 2000 panel in Serum or Plasma Observa Value Referen Units Interpr Notes Date ti ce etation Range Albumin/G 1.1 - 1.8 No Low No October 31 lobulin informati informati 2016 6:13 [Mass on in on in AM ratio] in source source Serum or data data Plasma Albumin 3.4 - 5.0 gm/dL Low No October 31 [Mass/vol informati 2016 6:13 ume] in on in AM Serum or source Plasma data Alkaline 46 - 116 U/L Normal No October 31 phosphata informati 2016 6:13 se on in AM [Enzymati source c data activity/ volume] in Serum or Plasma Bilirubin 0.2 - 1.0 mg/dL Normal No October 31 .total informati 2016 6:13 [Mass/vol on in AM ume] in source Serum or data Plasma Urea 7 - 18 mg/dL High No October 31 nitrogen informati 2017 6:13 [Mass/vol on in AM ume] in source Serum or data Plasma Calcium 8.5 - mg/dL Low No October 31 [Mass/vol 10.1 informati 2017 6:13 ume] in on in AM Serum or source Plasma data Chloride 98 - 107 mmoL/L High No October 31 [Moles/vo informati 2016 6:13 lume] in on in AM Serum or source Plasma data Carbon 21.0 - mmoL/L Normal No October 31 dioxide, 32.0 informati 2017 6:13 total on in AM [Moles/vo source lume] in data Serum or Plasma Creatinin 0.70 - mg/dL High No October 31 e 1.30 informati 2016 6:13 [Mass/vol on in AM ume] in source Serum or data Plasma Creatinin 50 - 200 ML/MIN Low No October 31 e renal informati 2016 6:13 clearance on in AM source predicted data by Cockcroft -Gault formula Estimated >60 ML/MIN No REFERENCE October 31 informati RANGE: 2017 6:13 glomerula on in >60 AM r source ML/MIN/1. filtratio data 73 SQUARE n rate METERSIf (GF this patient is -A merican, then multiply theresult by 1.210. Globulin 1.3 - 3.2 gm/dL No No October 31 [Mass/vol informati informati 2017 6:13 ume] in on in on in AM Serum source source data data Glucose 74 - 106 mg/dL High No October 31 [Mass/vol informati 2016 6:13 ume] in on in AM Serum or source Plasma data Potassium 3.5 - 5.1 mmoL/L Normal No October 31 informati 2016 6:13 [Moles/vo on in AM lume] in source Serum or data Plasma Sodium 136 - 145 mmoL/L High No October 31 [Moles/vo informati 2017 6:13 lume] in on in AM Serum or source Plasma data Aspartate 15 - 37 U/L No No October 31 informati informati 2017 6:13 aminotran on in on in AM sferase source source [Enzymati data data c activity/ volume] in Serum or Plasma Alanine 12 - 78 U/L No No October 31 aminotran informati informati 2016 6:13 sferase on in on in AM [Enzymati source source c data data activity/ volume] in Serum or Plasma Protein 6.4 - 8.2 gm/dL Low No October 31 [Mass/vol informati 2016 6:13 ume] in on in AM Serum or source Plasma data INR in Blood by Coagulation assay Observa Value Referen Units Interpr Notes Date tion ce etation Range IS PATIENT ON ANTICOAGULANTS? Y PTT RESULTS MUST BE CALLED IF PT ON HEPARIN!!! Y INR in 0.9 - 1.1 No High INDICATIO October 31 Blood by informati N 2016 6:13 Coagulati on in AM on assay source INR data RANGETHER APY FOR DVT, PE, ATRIAL FIB; 2.0 - 3.0PROPHY LAXIS FOR VTETHERAP Y FOR MECHANICA L HEART 2.5 - 3.5VALVE; PREVENTIO N OF SYSTEMICE MBOLISM SECONDARY TO AMI Prothromb 9.4 - SECONDS High No October 31 in time 11.8 informati 2016 6:13 (PT) in on in AM Platelet source poor data plasma by Coagulati on assay INR in Blood by Coagulation assay Observa Value Referen Units Interpr Notes Date tion ce etation Range IS PATIENT ON ANTICOAGULANTS? Y LIST ANTICOAGULANTS: WARFARIN PTT RESULTS MUST BE CALLED IF PT ON HEPARIN!!! Y INR in 0.9 - 1.1 No High INDICATIO October 30 Blood by informati N 2016 6:00 Coagulati on in AM on assay source INR data RANGETHER APY FOR DVT, PE, ATRIAL FIB; 2.0 - 3.0PROPHY LAXIS FOR VTETHERAP Y FOR MECHANICA L HEART 2.5 - 3.5VALVE; PREVENTIO N OF SYSTEMICE MBOLISM SECONDARY TO AMI Prothromb 9.4 - SECONDS High No October 30 in time 11.8 informati 2016 6:00 (PT) in on in AM Platelet source poor data plasma by Coagulati on assay CBC W Auto Differential panel in Blood Observa Value Referen Units Interpr Notes Date tion ce etation Range Basophils 0 - 0.2 K/MM3 Normal No October 29 informati 2016 6:25 [#/volume on in AM ] in source Blood by data Automated count Basophils 0.1 - 2.0 % Normal No October 29 informati 2016 6:25 leukocyte on in AM s in source Blood by data Automated count Eosinophi 0.0 - 0.4 K/mm3 Normal No October 29 ls informati 2016 6:25 [#/volume on in AM ] in source Blood by data Automated count Eosinophi 0.1 - % Normal October 29 ls/100 12.0 informati 2016 6:25 leukocyte on in AM s in source Blood by data Automated count Granulocy 1.3 - 8.0 K/mm3 Normal October 29 felix informati 2016 6:25 [#/volume on in AM ] in source Blood by data Automated count Granulocy 37.0 - % High No October 29 felix/100 80.0 informati 2016 6:25 leukocyte on in AM s in source Blood by data Automated count Hematocri 42.0 - % Low October 29 t [Volume 52.0 informati 2016 6:25 on in AM Fraction] source of Blood data Hemoglobi 14.1 - g/dL Low October 29 n 18.0 informati 2016 6:25 [Mass/vol on in AM ume] in source Blood data Lymphocyt 0.7 - 4.5 K/mm3 Low October 29 es informati 2016 6:25 [#/volume on in AM ] in source Unspecifi data ed specimen by Automated count Lymphocyt 10 - 50 % Low October 29 es informati 2016 6:25 [#/volume on in AM ] in source Unspecifi data ed specimen by Automated count Erythrocy 27 - 31.2 pg High October 29 te mean informati 2016 6:25 corpuscul on in AM ar source hemoglobi data n [Entitic mass] Erythrocy 31.8 - g/dl Normal October 29 te mean 35.4 informati 2016 6:25 corpuscul on in AM ar source hemoglobi data n concentra tion [Mass/vol ume] by Automated count Erythrocy 82.2 - fl High October 29 te mean 97.8 informati 2016 6:25 corpuscul on in AM ar volume source [Entitic data volume] by Automated count Monocytes 0.1 - 1.0 K/mm3 Normal October 29 informati 2016 6:25 [#/volume on in AM ] in source Blood by data Automated count Monocytes 1.7 - 9.3 % Normal October 29 informati 2016 6:25 leukocyte on in AM s in source Blood by data Automated count Platelet 7.4 - fl Low No October 29 mean 10.4 informati 2016 6:25 volume on in AM [Entitic source volume] data in Blood by Automated count Platelets 142 - 424 K/mm3 Low No October 29 informati 2016 6:25 [#/volume on in AM ] in source Blood data Erythrocy 4.6 - 6.2 M/mm3 Low No October 29 felix informati 2016 6:25 [#/volume on in AM ] in source Amniotic data fluid Erythrocy 11.5 - % Normal No October 29 te 17.5 informati 2016 6:25 distribut on in AM ion width source [Entitic data volume] by Automated count Leukocyte 4.8 - K/MM3 No No October 29 s 10.8 informati informati 2016 6:25 [#/volume on in on in AM ] in source source Blood data data Differential panel, method unspecified - Observa Value Referen Units Interpr Notes Date tion ce etation Range Neutrophi 0 - 8 % High No October 29 ls.band informati 2016 6:25 form/100 on in AM leukocyte source s in data Blood by Automated count LYMPH 4 10 - 50 % Low No October 29 inform2016 tion in 6:25 AM source data Macrocy 1+ No No No No October 29 felix informa informa informa informa 2016 [Presen tion in tion in tion in tion in 6:25 AM ce] in source source source source Blood data data data data Monocytes 2 - 9 % Low No October 29 /100 informati 2016 6:25 leukocyte on in AM s in source Blood by data Automated count Platele SLIGHT No No No No October 29 ts DECREAS informa informa informa informa 2016 [Presen E tion in tion in tion in tion in 6:25 AM ce] in source source source source Blood data data data data by Light microsc opy Neutrophi 42 - 76 % Normal No October 29 ls informati 2016 6:25 [#/volume on in AM ] in source Blood by data Automated count Cells No #CELLS No No October 29 Counted informati informati informati 2016 6:25 Total [#] on in on in on in AM in Blood source source source data data data Toxic 1+ No No No No October 29 granule informa informa informa informa 2017 s tion in tion in tion in tion in 6:25 AM [Presen source source source source ce] in data data data data Blood by Light microsc opy Legionella pneumophila 1 Ag [Presence] in Urine by Immunoassay Observa Value Referen Units Interpr Notes Date ti ce etation Range Legione Negativ Negativ No No Presump October 28 lla e e informa informa tive 2017 pneumop tion in tion in negativ 3:43 PM gino 1 source source e for Ag data data L. [Presen pneumop ce] in gino Urine serogro by up 1 Immunoa antigen ssay in urine, suggest ing no recent or current infecti on.Legi onnaire s' disease cannot be ruled out since otherse rogroup s and species may also cause disease .Perfor med at: BN - [facility] [place], [place] [id number]Lab Directo r: Car Vergara MD, Phone: [phone] Lactate [Moles/volume] in Serum or Plasma Observa Value Referen Units Interpr Notes Date ti ce etation Range Lactate 0.4 - 2.0 MMOL/L High An October 28 [Moles/vo elevated 2016 2:10 lume] in Lactic PM Serum or Acid is Plasma suggestiv e of sepsis and shouldbe repeated within 6 hours of initial testing. Gas panel in Arterial blood Observa Value Referen Units Interpr Notes Date ti ce etation Range Base -2.4-+2.3 MMOL/L Normal No October 28 excess in inform2016 Arterial on in 11:19 AM blood source data Arteria ACCEPTA No No No No October 28 l BLE informa informa informa informa 2017 patency tion in tion in tion in tion in 11:19 Wrist source source source source AM artery data data data data --pre arteria l punctur e Bicarbona 22.0 - MMOL/L Normal No October 28 te 26.0 inform2016 [Moles/vo on in 11:19 AM lume] in source Arterial data blood Oxygen No No No No October 28 content informati informati informati informati 2017 in on in on in on in on in 11:19 AM Arterial source source source source blood data data data data Carbon 35.0 - MMHG Normal No October 28 dioxide 45.0 informati 2016 [Partial on in 11:19 AM pressure] source in data Arterial blood pH of 7.35 - MMOL/L Normal No October 28 Arterial 7.45 2016 blood on in 11:19 AM source data Oxygen 80 - 100 MMHG Low No October 28 [Partial informati 2016 pressure] on in 11:19 AM in source Arterial data blood Oxygen 90 - 100 % Low No October 28 saturatio informati 2016 n.calcula on in 11:19 AM tyler from source oxygen data partial pressure in Arterial blood SOURCE L No No No No October 28 RADIAL informa informa informa informa 2017 tion in tion in tion in tion in 11:19 source source source source AM data data data data Carbon 23 - 27 MMOL/L Normal No October 28 dioxide, informati 2016 total on in 11:19 AM [Moles/vo source lume] in data Arterial blood Mycoplasma pneumoniae IgM Ab [Presence] in Serum by Immunoassay Observa Value Referen Units Interpr Notes Date tion ce etation Range Mycopla NON-BARB NONREAC No No No October 28 sma CTIVE TIVE informa informa informa 2017 pneumon tion in tion in tion in 10:10 iae IgM source source source AM Ab data data data [Presen ce] in Serum by Immunoa ssay Lactate [Moles/volume] in Blood Observa Value Referen Units Interpr Notes Date tion ce etation Range Lactate 0.4 - 2.0 mmol/L High October 28 [Moles/vo 2016 lume] in CRITICAL 10:10 AM Blood RESULTS RESU LTS CALLED TO: KENNETH 10/28/16 1040 Alexei Chavez elevated Lactic Acid is suggestiv e of sepsis and shouldbe repeated within 6 hours of initial testing. Comprehensive metabolic 2000 panel in Serum or Plasma Observa Value Referen Units Interpr Notes Date tion ce etation Range Albumin/G 1.1 - 1.8 No Normal No October 28 lobulin informati informati 2016 [Mass on in on in 10:10 AM ratio] in source source Serum or data data Plasma Albumin 3.4 - 5.0 gm/dL Normal No October 28 [Mass/vol informati 2016 ume] in on in 10:10 AM Serum or source Plasma data Alkaline 46 - 116 U/L Normal No October 28 phosphata informati 2016 se on in 10:10 AM [Enzymati source c data activity/ volume] in Serum or Plasma Bilirubin 0.2 - 1.0 mg/dL High No October 28 .total informati 2016 [Mass/vol on in 10:10 AM ume] in source Serum or data Plasma Urea 7 - 18 mg/dL Normal No October 28 nitrogen informati 2016 [Mass/vol on in 10:10 AM ume] in source Serum or data Plasma Calcium 8.5 - mg/dL Normal No October 28 [Mass/vol 10.1 informati 2016 ume] in on in 10:10 AM Serum or source Plasma data Chloride 98 - 107 mmoL/L Normal No October 28 [Moles/vo informati 2016 lume] in on in 10:10 AM Serum or source Plasma data Carbon 21.0 - mmoL/L Normal No October 28 dioxide, 32.0 informati 2016 total on in 10:10 AM [Moles/vo source lume] in data Serum or Plasma Creatinin 0.70 - mg/dL High No October 28 e 1.30 informati 2016 [Mass/vol on in 10:10 AM ume] in source Serum or data Plasma Creatinin 50 - 200 ML/MIN Low No October 28 e renal informati 2016 clearance on in 10:10 AM source predicted data by Cockcroft -Gault formula Estimated >60 ML/MIN No REFERENCE October 28 informati RANGE: 2017 glomerula on in >60 10:10 AM r source ML/MIN/1. filtratio data 73 SQUARE n rate METERSIf (GF this patient is -A merican, then multiply theresult by 1.210. Globulin 1.3 - 3.2 gm/dL Normal No October 28 [Mass/vol informati 2016 ume] in on in 10:10 AM Serum source data Glucose 74 - 106 mg/dL High No October 28 [Mass/vol informati 2016 ume] in on in 10:10 AM Serum or source Plasma data Potassium 3.5 - 5.1 mmoL/L Normal No October 28 informati 2016 [Moles/vo on in 10:10 AM lume] in source Serum or data Plasma Sodium 136 - 145 mmoL/L Normal No October 28 [Moles/vo informati 2017 lume] in on in 10:10 AM Serum or source Plasma data Aspartate 15 - 37 U/L Normal No October 282016 aminotran on in 10:10 AM sferase source [Enzymati data c activity/ volume] in Serum or Plasma Alanine 12 - 78 U/L Normal No October 28 aminotran 2016 sferase on in 10:10 AM [Enzymati source c data activity/ volume] in Serum or Plasma Protein 6.4 - 8.2 gm/dL Normal No October 28 [Mass/vol inform2016 ume] in on in 10:10 AM Serum or source Plasma data CBC W Auto Differential panel in Blood Observa Value Referen Units Interpr Notes Date tion ce etation Range Basophils 0 - 0.2 K/MM3 Normal No October 282016 [#/volume on in 10:10 AM ] in source Blood by data Automated count Basophils 0.1 - 2.0 % Normal No October 282016 leukocyte on in 10:10 AM s in source Blood by data Automated count Eosinophi 0.0 - 0.4 K/mm3 Normal No October 28 ls 2016 [#/volume on in 10:10 AM ] in source Blood by data Automated count Eosinophi 0.1 - % Normal No October 28 ls/100 12.0 2016 leukocyte on in 10:10 AM s in source Blood by data Automated count Granulocy 1.3 - 8.0 K/mm3 High No October 28 felix 2016 [#/volume on in 10:10 AM ] in source Blood by data Automated count Granulocy 37.0 - % Normal No October 28 felix/100 80.0 2016 leukocyte on in 10:10 AM s in source Blood by data Automated count Hematocri 42.0 - % Normal No October 28 t [Volume 52.0 2016 on in 10:10 AM Fraction] source of Blood data Hemoglobi 14.1 - g/dL Normal No October 28 n 18.0 inform2016 [Mass/vol on in 10:10 AM ume] in source Blood data Lymphocyt 0.7 - 4.5 K/mm3 Normal No October 28 es inform2016 [#/volume on in 10:10 AM ] in source Unspecifi data ed specimen by Automated count Lymphocyt 10 - 50 % Normal No October 28 es inform2016 [#/volume on in 10:10 AM ] in source Unspecifi data ed specimen by Automated count Erythrocy 27 - 31.2 pg High No October 28 te mean 2016 corpuscul on in 10:10 AM ar source hemoglobi data n [Entitic mass] Erythrocy 31.8 - g/dl Normal No October 28 te mean 35.4 2016 corpuscul on in 10:10 AM ar source hemoglobi data n concentra tion [Mass/vol ume] by Automated count Erythrocy 82.2 - fl High No October 28 te mean 97.8 inform2016 corpuscul on in 10:10 AM ar volume source [Entitic data volume] by Automated count Monocytes 0.1 - 1.0 K/mm3 Normal No October 28 inform2016 [#/volume on in 10:10 AM ] in source Blood by data Automated count Monocytes 1.7 - 9.3 % Normal No October 28 /100 2016 leukocyte on in 10:10 AM s in source Blood by data Automated count Platelet 7.4 - fl Low October 28 mean 10.4 inform2016 volume on in 10:10 AM [Entitic source volume] data in Blood by Automated count Platelets 142 - 424 K/mm3 No October 28 informati informati 2016 [#/volume on in on in 10:10 AM ] in source source Blood data data Erythrocy 4.6 - 6.2 M/mm3 Low No October 28 felix inform2016 [#/volume on in 10:10 AM ] in source Amniotic data fluid Erythrocy 11.5 - % Normal October 28 te 17.5 2016 distribut on in 10:10 AM ion width source [Entitic data volume] by Automated count Leukocyte 4.8 - K/MM3 High No October 28 s 10.8 informati 2016 [#/volume on in 10:10 AM ] in source Blood data Influenza virus A+B Ag [Presence] in Unspecified specimen Observa Value Referen Units Interpr Notes Date tion ce etation Range Influen NOT NOT No No October 28 za DETECTE DETECTD informa informa 2017 virus A D tion in tion in 9:55 AM Ag source source [Presen data data ce] in Unspeci fied specime n Influen NOT NOT No No No October 28 za DETECTE DETECTD informa informa informa 2017 virus B D tion in tion in tion in 9:55 AM Ag source source source [Presen data data data ce] in Unspeci fied specime n Urinalysis dipstick W Reflex Microscopic panel in Urine Observa Value Referen Units Interpr Notes Date tion ce etation Range Appeara Clear CLEAR No No No October 28 nce of informa informa informa 2016 Urine tion in tion in tion in 9:52 AM source source source data data data Bilirub SMALL NEG No No No October 28 in informa informa informa 2016 [Presen tion in tion in tion in 9:52 AM ce] in source source source Urine data data data by Test strip Erythro MODERAT NEG No No No October 28 cytes E informa informa informa 2016 [Presen tion in tion in tion in 9:52 AM ce] in source source source Urine data data data Color YELLOW YELLOW No No No October 28 of informa informa informa 2016 Urine tion in tion in tion in 9:52 AM source source source data data data Glucose NEG No No No October 28 [Mass/vol informati informati informati 2016 9:52 ume] in on in on in on in AM Urine by source source source Test data data data strip Ketones NEGATIV NEG mg/dL No No October 28 E informa informa 2016 [Presen tion in tion in 9:52 AM ce] in source source Urine data data by Automat ed test strip Mucus NEGATIV NEG No No No October 28 [Presen E informa informa informa 2016 ce] in tion in tion in tion in 9:52 AM Urine source source source sedimen data data data t by Light microsc opy Nitrite NEGATIV NEG No No No October 28 E informa informa informa 2016 [Presen tion in tion in tion in 9:52 AM ce] in source source source Urine data data data by Test strip pH of 5.0 - 8.5 No Normal No October 28 Urine informati informati 2016 9:52 on in on in AM source source data data Protein NEG mg/dL No No October 28 [Mass/vol informati informati 2016 9:52 ume] in on in on in AM Urine by source source Automated data data test strip Specific 1.005 - No Normal No October 28 gravity 1.030 informati informati 2017 9:52 of Urine on in on in AM source source data data Urobili 1.0 NEG E.U./dL No No October 28 sean informa informa 2017 [Presen tion in tion in 9:52 AM ce] in source source Urine data data by Test strip
--- OUTSIDE RECORDS SUMMARY | 2016-12-30 10:06 | External Medical Summary Rpt ---
Author Author [employer], [employer] Address Unknown Phone Unavailable Payers Section Payer Plan Name Group ID Member ID Coverage Coverage Start End Date Date MEDICARE "" [id number] No No A informati informati on in on in source source data data UMR "" [id number] No No 809 informati informati on in on in source source data data Results INR in Blood by Coagulation assay Observa Value Referen Units Interpr Notes Date tion ce etation Range INR in 0.9 - 1.1 No High Results Dec 22 Blood by informati sent to: 2016 Coagulati on in [facility] 11:00 AM on assay source Ginger BLACK [...] informati sent to: 2017 Coagulati on in [facility] 10:30 AM on assay source Ginger BLACK [...] informati sent to: 2017 Coagulati on in [facility] 12:30 PM on assay source Ginger BLACK [...] disease .Perfor med at: BN - [facility] [place], [place] [id number]Lab Directo r: Car Vergara MD, Phone: [phone] Lactate [Moles/volume] in Serum or Plasma Observa [...]
--- NOTE | 2016-12-30 10:17 | Emergency Room Report ---
History of Present Illness Time Seen by MD Hamilton51 Presenting Problem in Triage Pt arrived:Walked Presenting Problem:PT C/O LEFT SIDE AND FLANK PAIN SINCE 0500 THIS AM. PT DENIES ANY DIFFICULT URINATION OR DIFFICULTY WITH BM'S. PT C/O INCREASED PAIN WITH BREATHING Onset of symptoms date/time:/ or onset unknown for:MEDICAL HX UNKNOWN Treatment Prior to Arrival: [employer] Provided by: Sepsis Risk Assessment: Temp: 97.6 B/P: 146/67 MAP: 93 Pulse: 74 Resp: 18 Recent fever? N Clinical Suspician of Infection? N Mental Status: 1 - Regular (Normal Baseline) Sepsis Risk:Low Sepsis Risk Have you (or family members/close friends) recently traveled outside the [place]? N If Yes, where/when: Have you had exposure to infectious disease within the past month? N TB? Other? Specify: Sharp, intermittent left flank pain, mild, since 0500 today. No cough or fever, but reports that it hurts worse when he takes a deep breath. Hurts with movement. No syncope or neurological symptoms. Has LLQ abdominal pain, and the pain started in the left flank, and is now migrating to LLQ gradually over this morning. He declines any pain medications. Had pneumonia and had to cancel scheduled surgical removal of known calculus per Dr. Abbasi for October. No new cough. No urinary sx. ALLERGIES Coded Allergies: sulindac (Mild, JAUNDICE 07/07/16) esomeprazole (From Nexium) (Intermediate, N/V/D 07/07/16) niacin (Intermediate, FLUSHING 07/07/16) Home Medications Active Scripts Device (Oxygen (Concentrator)) 1 UNIT IH CONSTANT #1 DEV Ref 5 Prov: 11/02/16 Device (Oxygen, Portable) 1 UNIT IH CONSTANT #1 DEV Ref 5 Prov: 11/02/16 Sucralfate (Carafate) 1 GM PO QID #28 TAB Prov: 11/26/16 Reported Medications WARFARIN SOD (Warfarin 3MG) 1.5 MG PO MoFr WARFARIN SOD (Warfarin 3MG) 3 MG PO SuTuWeThSa Metoprolol Succinate Xl (Toprol Xl) 50 MG PO BID Amiodarone Hcl (Amiodarone 200MG) 200 MG PO DAILY Buspirone Hcl (Buspar 10MG) 10 MG PO BID #60 TAB Levothyroxine Sodium (Levothyroxine 0.125MG) 0.125 MG PO DAILY Polyethylene Glycol 3350 (Glycolax) 17 GM PO DAILY 30 Days Alprazolam 0.25 MG PO TID PRN ANXIETY #1 TAB Furosemide 40 MG PO DAILY #1 TAB CHOLECALCIFEROL (VITAMIN D3) (Vitamin D3) 5,000 IUNITS PO SAT & WED Tiotropium [place] (Spiriva) 18 MCG IH DAILY PRN BREATHING Bioflav,Lemon/Vit Bcomp&C (Lipoflavovit Caplet) 1 EACH PO TID TAMSULOSIN HCL (Tamsulosin 0.4MG) 0.4 MG PO QHS Ranitidine Hcl (Zantac) 150 MG PO DAILY ASPIRIN (Aspirin) 81 MG PO DAILY Temazepam (Restoril 15MG) 15 MG PO QHS #30 Pantoprazole Sodium 40 MG PO DAILY #90 PRAVASTATIN SODIUM (Pravastatin Sodium) 40 MG PO QHS History Medical History General CAD? No Angina: No AR: No Hypertension? Yes Hyperlipidemia? Yes CHF? No DVT? No PE? No COPD? Yes Asthma? No Anemia? No GERD? Yes Gastric ulcers? No GI Bleed? No Hernia? Yes Thyroid Problems? Yes Hypothyroidism? No CVA? No Seizures? No Diabetes? No Renal Insuffiency? No End Stage Renal Disease? No UTI? No Stones? No BPH? Yes GB Disease: No Nephritic Syndrome? No Asplenia? No Hepatitis? No Sickle Cell Disease? No Arthritis? Yes Migraines? No Cataracts? No Glaucoma? No MRSA? No HIV? No TB? No Anxiety? Yes Depression? 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 No Immunization Hx DT/Tetanus Unknown Flu 2015-FSN Pneumonia Received In Past Surgical Hx Previous Surgery?Y PACEMAKER HEART STENTS GALLBLADDER COLON RESECTION CATARACTS EAR TUBES 12/13 LESIONS FACE HERNIA SURGERY Family History Family Hx Diabetes No CAD Yes Hypertension Yes Hyperlipidemia Yes Cancer Yes TB No Social History Smoking Hx Smoker: Former Smoker Tobacco: Yes Type Cigarettes Packs/day N/A Alcohol Alcohol: No Review of Systems All Other Systems Reviewed and Negative ENT other (recent eval ENT for dizziness). Gastrointestinal see HPI Genitourinary denies: no symptoms reported (pt Dr. Abbasi: hydro/calculus). Musculoskeletal see HPI Psychiatric/Neurological other (chronic dizziness) Physical Exam Vital Signs Vital Signs Date Time Temp Pulse Resp B/P Pulse O2 O2 Flow FiO2 Ox Delivery Rate 12/30 1153 74 18 144/73 97 12/30 1033 70 18 119/62 96 12/30 0936 97.6 74 18 146/67 97 General Appearance normal appearance, WD/WN, no apparent distress Eye Exam - bilateral eye normal exam, bilateral eye PERRL, bilateral eye EOMI Neck normal inspection, non-tender, supple, full range of motion Respiratory Status Yes: trachea midline, chest symmetrical, non tender chest. No: respiratory distress, tender on palpation, use of accessory muscles, pain on inspiration, pain on expiration, productive cough, non productive cough. Lung Sounds bilateral: normal breath sounds, lungs clear. Cardiovascular normal exam, regular rate/rhythm, no peripheral edema, no gallop, no JVD, no murmur, no rub, normal peripheral pulses Peripheral Pulses Pulses normal Yes Gastrointestinal normal bowel sounds, normal exam, soft, no organomegaly, no guarding, no rebound Back normal inspection, no CVA tenderness, no vertebral tenderness, bowel/ bladder continent, strt leg raising(L)-NML, strt leg raising(R)-NML Extremities non-tender, normal range of motion, normal inspection, normal capillary refill, no calf tenderness, no pedal edema, pelvis stable Strength 5 Upper Ext (L), 5 Upper Ext (R), 5 Lower Ext (L), 5 Lower Ext (R) Neurologic alert, normal exam, no motor/sensory deficits, oriented x 3 Glascow Coma Scale Glascow Coma Scale Response Value EYE response: 4 Spontaneously 4 MOTOR response: 6 OBEYS 6 VERBAL response: 5 Oriented & Converses 5 Total 15 Skin intact, normal color, warm/dry Medical Decision Making LABS/Meds/Orders Pt receiving controlled substance in ED? Yes Korey was queried for this patient? Yes Reference #: [id number] Risks/benefits of using a controlled substance for treatment were discussed w/pt by me Results/Orders Laboratory Tests 12/30/16 1120: Urine Color YELLOW, Urine Appearance CLEAR, Urine pH 7.0, Ur Specific [place]ley 1.015, Urine Protein NEGATIVE, Urine Ketones NEGATIVE, Urine Blood 1+ H, Urine Nitrate NEGATIVE, Urine Bilirubin NEGATIVE, Urine Urobilinogen 0.2, Ur Leukocyte Esterase NEGATIVE, Urine RBC 3-5, Urine WBC 3-5, Ur Squamous Epith Cells OCC, Urine Bacteria 1+, Urine Mucus OCC, Urine Glucose NEGATIVE 12/30/16 0955: Sodium 145, Potassium 4.1, Chloride 109 H, Carbon Dioxide 30, BUN 22 H, Creatinine 1.9 H, Estimated Creat Clear 34 L, Estimated GFR (MDRD) 34, Glucose 113 H, Calcium 8.1 L, Total Bilirubin 0.9, AST 15, ALT 18, Alkaline Phosphatase 67, Total Protein 6.0 L, Albumin 3.3 L, Globulin 2.7, Albumin/ Globulin Ratio 1.2, Amylase 93, Lipase 74, PT 24.8 H, INR 2.28 H, WBC 5.3, RBC 3.76 L, Hgb 12.1 L, Hct 37.0 L, MCV 98.5 H, RDW 14.0, Plt Count 124 L, MPV 8.1, Gran % 71.6, Gran # 3.8, Lymphocytes % 20.5, Monocytes % 5.0, Eosinophils % 2.4, Basophils % 0.5, Lymphocytes # 1.1, Monocytes # 0.3, Eosinophils # 0.1, Basophils # 0.0, PUBS MCHC 32.8, MCH 32.3 H Current Medication Orders Sig/Cassi Start time Last Medication Dose Route Stop Time Status Admin Sodium Chloride 10 ML PRN PRN 12/30 944 AC IV 01/01 944 Orders Procedure Date/time Status DIET-NOTHING BY MOUTH 12/30 L Active PROTHROMBIN TIME 12/[address] ABD/PELVIS REQ 12/31 943 Complete IV SALINE LOCK 12/31 943 Active URINALYSIS/COMPLETE 12/31 943 Complete LIPASE 12/31 943 Complete CBC WITH AUTO DIFF 12/31 943 Complete CHEM 12 PROFILE 12/31 943 Complete AMYLASE 12/31 943 Complete XRAY/CT/US XRAY/CT/US XRAY chest XR interpretation by reviewed by me (report reviewed) Xray Results no fracture seen, no infiltrates, normal heart size, normal lung inflation lilian CT abdomen, pelvis CT interpretation by reviewed by me, discussed w/radiologist Time results known: 1142 CT Results normal/NAD (unchanged from prior:), hydronephrosis, dilated pelvis , possible calcified stone vs little pieces of gravel, L UVJ. 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 Abbasi for follow up and to reschedule appointment for surgical removal of stone. Rx Lortab Discharge Counseling Counseled pt/family regarding diagnosis, test results, medications/RX, home care, follow up needs Prescriptions Current Visit Scripts HYDROCODONE/ACETAMINOPHEN (LORTAB 5-325 (generic)) 1 TAB PO Q6HP PRN PAIN #20 TAB ED Critical Care Critical Care No at 1218
[2016-12-30 11:48] LABS: URINE BILIRUBIN - DIPSTICK NEGATIVE (NEG); URINE BLOOD 1+ (NEG)
--- NOTE | 2016-12-30 11:55 | RADIOLOGY REPORT PS360 ---
CT ABD PELVIS W/O CONTRAST COMPARISON: CT scan abdomen pelvis stone protocol 10/10/2016 HISTORY: Left flank pain TECHNIQUE: Multiple axial scans obtained from hemidiaphragms the pelvic floor and were performed without IV or oral contrast. Sagittal and coronal reformats were evaluated as well. FINDINGS: Scans through the lower chest show post inflammatory scarring in the right middle lobe. The liver spleen stomach and pancreas appear grossly normal. There is been previous cholecystectomy. There is a [id number] sized hiatal hernia. The adrenal glands are normal. The kidneys are normal size with a nonobstructing calculus upper pole right kidney stable benign-appearing cortical cysts in both kidneys. 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 However in addition there is faint increased density within the ureter right at the UP junction and I suspect possibly a partially calcified stone or possibly tiny fragments of the stone causing relative obstructive uropathy of the left kidney. The findings are basically stable and unchanged from the previous exam in October. Small bowel is normal. The appendix is upper limits of normal caliber but there are no periappendiceal inflammatory changes. There are scattered stool in the ascending and transverse colon and proximal descending colon. The urinary bladder is moderately distended, the prostate is enlarged. There are multilevel degenerative changes of the lumbar spine. 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 Possibly a follow-up retrograde pyelogram should be considered to better evaluate the anatomy of the UPJ obstruction left side.
[2016-12-30 11:58] LABS: URINE SQUAMOUS CELLS OCC #/hpf (OCC)
--- NOTE | 2016-12-30 11:58 | RADIOLOGY REPORT PS360 ---
CHEST(2 VIEWS-NOT PORTABLE) COMPARISON: PA and lateral chest 12/18/2016 HISTORY: Chest pain with inspiration TECHNIQUE: PA and lateral chest FINDINGS: Lung alford are somewhat hyperexpanded.. Minimal chronic post plantar scarring seen in the right middle lobe anterior aspect. There is borderline cardio megaly without failure. There is a cardiac pacemaker with dual chamber electrodes both in good position. There is no pleural fluid. There is multilevel degenerative changes of the thoracic spine. IMPRESSION: Nonacute chest findings
[2016-12-30] MEDS ORDERED: HYDROCODONE/APA1 TA8 PO (12:18)
[2016-12-30 12:24] VITALS: BP 144/73
== END 2016-12-30 12:25 | disposition home or self-care (01) ==
LOC: ER 09:31
PROVIDERS: Emergency Medicine
DX: K59.00 Constipation, unspecified (principal); R10.30 Lower abdominal pain, unspecified; N13.30 Unspecified hydronephrosis; I10 Essential (primary) hypertension; K21.9 Gastro-esophageal reflux disease without esophagitis

== ENCOUNTER 2017-01-01 08:47 | Emergency (ER) | payer MEDICARE ==
[~2017-01-01] VITALS: Ht 175.3 cm; Wt 88.9 kg
[~2017-01-01 08:47] MED LIST changes: +HYDROCODONE/APA1 TA8 PO
--- OUTSIDE RECORDS SUMMARY | 2017-01-01 08:54 | External Medical Summary Rpt ---
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 K29.70 GASTRITIS, UNSPECIFIED , WITHOUT BLEEDING N20.1 CALCULUS OF URETER N21.0 CALCULUS IN BLADDER N28.9 DISORDER OF KIDNEY AND URETER, UNSPECIFIED N30.91 CYSTITIS, UNSPECIFIED WITH HEMATURIA R05 COUGH R07.9 CHEST PAIN, UNSPECIFIED R10.13 EPIGASTRIC PAIN R10.32 LEFT LOWER QUADRANT PAIN R31.9 HEMATURIA, UNSPECIFIED R79.1 ABNORMAL COAGULATION PROFILE Z53.21 PROC/TRTMT NOT CRD OUT D/T PT LV BEF SEEN BY [facility] Results Labs Lab Lab Date Result Refere Interp Status Commen Order Detail nces retati t Range on Urinalysis dipstick W Reflex Microscopic panel in Urine (12-30-2016 11:20) Bacteri 1+ O complet a 017 ed [Presen 11:20 ce] in Urine sedimen t by Light microsc opy Mucus OCC NONE complet [Presen 017 ed ce] in 11:20 Urine sedimen t by Light microsc opy Erythro 3-5 0 complet cytes 017 ed [Presen 11:20 ce] in Urine sedimen t by Light microsc opy Epithel OCC OCC complet ial 017 ed cells.s 11:20 quamous [Presen ce] in Urine sedimen t by Microsc opy high power field Leukocy 3-5 O complet felix 017 wbc/hpf ed [#/volu 11:20 me] in Urine Urinalysis dipstick W Reflex Microscopic panel in Urine (12-30-2016 11:20) Appeara CLEAR CLEAR complet nce of 017 ed Urine 11:20 Bilirub NEGATIV NEG complet in 017 E ed [Presen 11:20 ce] in Urine by Test strip Erythro 1+ NEG Abnorma complet cytes 017 l ed [Presen 11:20 ce] in Urine Color YELLOW YELLOW complet of 017 ed Urine 11:20 Ketones NEGATIV NEG complet 017 E ed [Presen 11:20 ce] in Urine by Automat ed test strip Mucus NEGATIV NEG complet [Presen 017 E ed ce] in 11:20 Urine sedimen t by Light microsc opy Nitrite NEGATIV NEG complet 017 E ed [Presen 11:20 ce] in Urine by Test strip Urobili 0.2 NEG complet nogen 017 ed [Presen 11:20 ce] in Urine by Test strip Differential panel, method unspecified - (10-31-2016 06:13) LYMPH 05--2 10 % 10% - Normal complet 017 50% ed 06:13 Macrocy 1+ complet felix 017 ed [Presen 06:13 ce] in Blood Platele SLIGHT complet ts 017 DECREAS ed [Presen 06:13 E ce] in Blood by Light microsc opy Differential panel, method unspecified - (10-29-2016 06:25) LYMPH 10-29-2 4 % 10% - Low complet 017 [...] 09:52) Appeara Clear CLEAR complet nce of 017 ed Urine 09:52 Bilirub SMALL NEG complet [...]
--- OUTSIDE RECORDS SUMMARY | 2017-01-01 08:54 | External Medical Summary Rpt ---
Demographics Preferred Language Moh[place] Marital Status Unknown Adventist Affiliation Unknown Race Unknown Ethnic Group Unknown Author Author , SHARMILA BUNN Address Unknown Phone Immunization Unable to retrieve immunization data due to connection failure with Immunization Registry. Please try again later.
--- OUTSIDE RECORDS SUMMARY | 2017-01-01 08:54 | External Medical Summary Rpt ---
Author Author , ONI BUNN Address Unknown Phone [email or web address] Purpose Continuity of Care Document - 10-28-2016 [...] OUT D/T PT LV BEF SEEN BY [facility] Results Labs Lab Lab [...] in Serum by Immunoassay (10-28-2016 10:10) Mycopla NON-BRAB NONREAC complet sma 017 CTIVE TIVE ed [...]
--- OUTSIDE RECORDS SUMMARY | 2017-01-01 08:54 | External Medical Summary Rpt ---
Demographics Preferred Language [place] Sor[place] Marital Status Unknown Sikh Affiliation Unknown Race Unknown Ethnic Group Unknown Author Author , SHARMILA BUNN Address Unknown Phone Immunization Unable to retrieve immunization data due to connection failure with Immunization Registry. Please try again later.
--- OUTSIDE RECORDS SUMMARY | 2017-01-01 08:56 | External Medical Summary Rpt ---
Author Author [employer] [facility], [employer] Organization [employer] Address Unknown Phone Unavailable Payers Section Payer Plan Name Group ID Member ID Coverage Coverage Start End Date Date MEDICARE "" [id number] No No A informati informati on in on in source source data data UMR "" [id number] No No 809 informati informati on in on in source source data data Results Urinalysis dipstick W Reflex Microscopic panel in Urine Observa Value Referen Units Interpr Notes Date tion ce etation Range Appeara CLEAR CLEAR No No No Dec 30 nce of informa informa informa 2016 Urine tion in tion in tion in 11:20 source source source AM data data data Bacteri 1+ O No No No Dec 30 a informa informa informa 2016 [Presen tion in tion in tion in 11:20 ce] in source source source AM Urine data data data sedimen t by Light microsc opy Bilirub NEGATIV NEG No No No Dec 30 in E informa informa informa 2016 [Presen tion in tion in tion in 11:20 ce] in source source source AM Urine data data data by Test strip Erythro 1+ NEG No Abnorma No Dec 30 cytes informa l informa 2016 [Presen tion in tion in 11:20 ce] in source source AM Urine data data Color YELLOW YELLOW No No No Dec 30 of informa informa informa 2016 Urine tion in tion in tion in 11:20 source source source AM data data data Glucose NEG No No No Dec 30 [Mass/vol informati informati informati 2016 ume] in on in on in on in 11:20 AM Urine by source source source Test data data data strip Ketones NEGATIV NEG mg/dL No No Dec 30 E informa informa 2016 [Presen tion in tion in 11:20 ce] in source source AM Urine data data by Automat ed test strip Mucus NEGATIV NEG No No No Dec 30 [Presen E informa informa informa 2017 ce] in tion in tion in tion in 11:20 Urine source source source AM sedimen data data data t by Light microsc opy Mucus OCC NONE No No No Dec 30 [Presen informa informa informa 2016 ce] in tion in tion in tion in 11:20 Urine source source source AM sedimen data data data t by Light microsc opy Nitrite NEGATIV NEG No No No Dec 30 E informa informa informa 2016 [Presen tion in tion in tion in 11:20 ce] in source source source AM Urine data data data by Test strip pH of 5.0 - 8.5 No Normal No Dec 30 Urine informati informati 2017 on in on in 11:20 AM source source data data Protein NEG mg/dL No No Dec 30 [Mass/vol informati informati 2016 ume] in on in on in 11:20 AM Urine by source source Automated data data test strip Erythro 3-5 0 rbc/hpf No No Dec 30 cytes informa informa 2016 [Presen tion in tion in 11:20 ce] in source source AM Urine data data sedimen t by Light microsc opy Specific 1.005 - No Normal No Dec 30 gravity 1.030 informati informati 2017 of Urine on in on in 11:20 AM source source data data Epithel OCC OCC #/hpf No No Dec 30 ial informa informa 2017 cells.s tion in tion in 11:20 quamous source source AM data data [Presen ce] in Urine sedimen t by Microsc opy high power field Urobili 0.2 NEG E.U./dL No No Dec 30 nogen informa informa 2016 [Presen tion in tion in 11:20 ce] in source source AM Urine data data by Test strip Leukocy [3 O wbc/hpf No No Dec 30 felix wbc/hpf informa informa 2016 [#/volu ; 5 tion in tion in 11:20 me] in wbc/hpf source source AM Urine ] data data Urinalysis dipstick W Reflex Microscopic panel in Urine Observa Value Referen Units Interpr Notes Date tion ce etation Range Appeara CLEAR CLEAR No No No Dec 30 nce of informa informa informa 2017 Urine tion in tion in tion in 11:20 source source source AM data data data Bilirub NEGATIV NEG No No No Dec 30 in E informa informa informa 2016 [Presen tion in tion in tion in 11:20 ce] in source source source AM Urine data data data by Test strip Erythro 1+ NEG No Abnorma No Dec 30 cytes informa l informa 2016 [Presen tion in tion in 11:20 ce] in source source AM Urine data data Color YELLOW YELLOW No No No Dec 30 of informa informa informa 2016 Urine tion in tion in tion in 11:20 source source source AM data data data Glucose NEG No No No Dec 30 [Mass/vol informati informati informati 2016 ume] in on in on in on in 11:20 AM Urine by source source source Test data data data strip Ketones NEGATIV NEG mg/dL No No Dec 30 E informa informa 2016 [Presen tion in tion in 11:20 ce] in source source AM Urine data data by Automat ed test strip Mucus NEGATIV NEG No No No Dec 30 [Presen E informa informa informa 2016 ce] in tion in tion in tion in 11:20 Urine source source source AM sedimen data data data t by Light microsc opy Nitrite NEGATIV NEG No No No Dec 30 E informa informa informa 2016 [Presen tion in tion in tion in 11:20 ce] in source source source AM Urine data data data by Test strip pH of 5.0 - 8.5 No Normal No Dec 30 Urine informati informati 2016 on in on in 11:20 AM source source data data Protein NEG mg/dL No No Dec 30 [Mass/vol informati informati 2017 ume] in on in on in 11:20 AM Urine by source source Automated data data test strip Specific 1.005 - No Normal No Dec 30 gravity 1.030 informati informati 2016 of Urine on in on in 11:20 AM source source data data Urobili 0.2 NEG E.U./dL No No Dec 30 nogen informa informa 2016 [Presen tion in tion in 11:20 ce] in source source AM Urine data data by Test strip Amylase [Enzymatic activity/volume] in Serum or Plasma Observa Value Referen Units Interpr Notes Date tion ce etation Range Amylase 25 - 115 U/L Normal No Dec 30 [Enzymati informati 2017 9:55 c on in AM activity/ source volume] data in Serum or Plasma Comprehensive metabolic 2000 panel in Serum or Plasma Observa Value Referen Units Interpr Notes Date tion ce etation Range Albumin/G 1.1 - 1.8 No Normal No Dec 30 lobulin informati informati 2016 9:55 [Mass on in on in AM ratio] in source source Serum or data data Plasma Albumin 3.4 - 5.0 gm/dL Low No Dec 30 [Mass/vol informati 2016 9:55 ume] in on in AM Serum or source Plasma data Alkaline 46 - 116 U/L Normal No Dec 30 phosphata informati 2016 9:55 se on in AM [Enzymati source c data activity/ volume] in Serum or Plasma Bilirubin 0.2 - 1.0 mg/dL Normal No Dec 30 .total informati 2016 9:55 [Mass/vol on in AM ume] in source Serum or data Plasma Urea 7 - 18 mg/dL High No Dec 30 nitrogen informati 2017 9:55 [Mass/vol on in AM ume] in source Serum or data Plasma Calcium 8.5 - mg/dL Low No Dec 30 [Mass/vol 10.1 informati 2017 9:55 ume] in on in AM Serum or source Plasma data Chloride 98 - 107 mmoL/L High No Dec 30 [Moles/vo informati 2016 9:55 lume] in on in AM Serum or source Plasma data Carbon 21.0 - mmoL/L Normal No Dec 30 dioxide, 32.0 informati 2017 9:55 total on in AM [Moles/vo source lume] in data Serum or Plasma Creatinin 0.70 - mg/dL High No Dec 30 e 1.30 informati 2017 9:55 [Mass/vol on in AM ume] in source Serum or data Plasma Creatinin 50 - 200 ML/MIN Low No Dec 30 e renal informati 2017 9:55 clearance on in AM source predicted data by Cockcroft -Gault formula Estimated >60 ML/MIN No REFERENCE Dec 30 informati RANGE: 2017 9:55 glomerula on in >60 AM r source ML/MIN/1. filtratio data 73 SQUARE n rate METERSIf (GF this patient is -A merican, then multiply theresult by 1.210. Globulin 1.3 - 3.2 gm/dL Normal No Dec 30 [Mass/vol informati 2016 9:55 ume] in on in AM Serum source data Glucose 74 - 106 mg/dL High No Dec 30 [Mass/vol informati 2016 9:55 ume] in on in AM Serum or source Plasma data Potassium 3.5 - 5.1 mmoL/L Normal No Dec 30 informati 2016 9:55 [Moles/vo on in AM lume] in source Serum or data Plasma Sodium 136 - 145 mmoL/L Normal No Dec 30 [Moles/vo informati 2016 9:55 lume] in on in AM Serum or source Plasma data Aspartate 15 - 37 U/L Normal No Dec 30 informati 2016 9:55 aminotran on in AM sferase source [Enzymati data c activity/ volume] in Serum or Plasma Alanine 12 - 78 U/L Normal No Dec 30 aminotran informati 2016 9:55 sferase on in AM [Enzymati source c data activity/ volume] in Serum or Plasma Protein 6.4 - 8.2 gm/dL Low No Dec 30 [Mass/vol informati 2016 9:55 ume] in on in AM Serum or source Plasma data Lipase [Enzymatic activity/volume] in Serum or Plasma Observa Value Referen Units Interpr Notes Date tion ce etation Range Lipase 73 - 393 U/L Normal No Dec 30 [Enzymati informati 2017 9:55 c on in AM activity/ source volume] data in Serum or Plasma INR in Blood by Coagulation assay Observa Value Referen Units Interpr Notes Date tion ce etation Range IS PATIENT ON ANTICOAGULANTS? Y LIST ANTICOAGULANTS: COUMADIN PTT RESULTS MUST BE CALLED IF PT ON HEPARIN!!! Y INR in 0.9 - 1.1 No High INDICATIO Dec 30 Blood by informati N 2017 9:55 Coagulati on in AM on assay source INR data RANGETHER APY FOR DVT, PE, ATRIAL FIB; 2.0 - 3.0PROPHY LAXIS FOR VTETHERAP Y FOR MECHANICA L HEART 2.5 - 3.5VALVE; PREVENTIO N OF SYSTEMICE MBOLISM SECONDARY TO AMI Prothromb 9.4 - SECONDS High No Dec 30 in time 11.8 informati 2017 9:55 (PT) in on in AM Platelet source poor data plasma by Coagulati on assay CBC W Auto Differential panel in Blood Observa Value Referen Units Interpr Notes Date tion ce etation Range Basophils 0 - 0.2 K/MM3 Normal No Dec 30 informati 2016 9:55 [#/volume on in AM ] in source Blood by data Automated count Basophils 0.1 - 2.0 % Normal No Dec 30 /100 informati 2017 9:55 leukocyte on in AM s in source Blood by data Automated count Eosinophi 0.0 - 0.4 K/mm3 Normal No Dec 30 ls informati 2016 9:55 [#/volume on in AM ] in source Blood by data Automated count Eosinophi 0.1 - % Normal No Dec 30 ls/100 12.0 informati 2017 9:55 leukocyte on in AM s in source Blood by data Automated count Granulocy 1.3 - 8.0 K/mm3 Normal No Dec 30 felix informati 2016 9:55 [#/volume on in AM ] in source Blood by data Automated count Granulocy 37.0 - % Normal No Dec 30 felix/100 80.0 informati 2016 9:55 leukocyte on in AM s in source Blood by data Automated count Hematocri 42.0 - % Low No Dec 30 t [Volume 52.0 informati 2017 9:55 on in AM Fraction] source of Blood data Hemoglobi 14.1 - g/dL Low No Dec 30 n 18.0 informati 2016 9:55 [Mass/vol on in AM ume] in source Blood data Lymphocyt 0.7 - 4.5 K/mm3 Normal No Dec 30 es informati 2016 9:55 [#/volume on in AM ] in source Unspecifi data ed specimen by Automated count Lymphocyt 10 - 50 % Normal No Dec 30 es informati 2016 9:55 [#/volume on in AM ] in source Unspecifi data ed specimen by Automated count Erythrocy 27 - 31.2 pg High No Dec 30 te mean informati 2017 9:55 corpuscul on in AM ar source hemoglobi data n [Entitic mass] Erythrocy 31.8 - g/dl Normal Dec 30 te mean 35.4 informati 2016 9:55 corpuscul on in AM ar source hemoglobi data n concentra tion [Mass/vol ume] by Automated count Erythrocy 82.2 - fl High Dec 30 te mean 97.8 informati 2016 9:55 corpuscul on in AM ar volume source [Entitic data volume] by Automated count Monocytes 0.1 - 1.0 K/mm3 Normal No Dec 30 informati 2016 9:55 [#/volume on in AM ] in source Blood by data Automated count Monocytes 1.7 - 9.3 % Normal No Dec 30 / informati 2016 9:55 leukocyte on in AM s in source Blood by data Automated count Platelet 7.4 - fl Normal No Dec 30 mean 10.4 informati 2016 9:55 volume on in AM [Entitic source volume] data in Blood by Automated count Platelets 142 - 424 K/mm3 Low No Dec 30 informati 2016 9:55 [#/volume on in AM ] in source Blood data Erythrocy 4.6 - 6.2 M/mm3 Low No Dec 30 felix informati 2016 9:55 [#/volume on in AM ] in source Amniotic data fluid Erythrocy 11.5 - % Normal No Dec 30 te 17.5 informati 2016 9:55 distribut on in AM ion width source [Entitic data volume] by Automated count Leukocyte 4.8 - K/MM3 Normal No Dec 30 s 10.8 informati 2016 9:55 [#/volume on in AM ] in source Blood data INR in Blood by Coagulation assay Observa Value Referen Units Interpr Notes Date tion ce etation Range INR in 0.9 - 1.1 No High Results Dec 22 Blood by [facility]ati sent to: [facility] Ginger BLACK data n 12/22/16 [id number] enship,Ji mmy Pharmacis t recommend ation for Warfarint herapy is: PATIENT INR 2.3 TODAY VIA FINGERSTI CK.RECOMM ENDED PATIENT CONTINUE WITH CURRENT DOSE OF WARFARIN3 MG ON SUN/SUN/ HU/SAT; 1.5 MG ON SUN/SUN/ RI.FO R DETAILED [...] K/mm3 Normal No Dec 18 es informati 2017 1:55 [#/volume on in AM ] in source Unspecifi data ed specimen by Automated count Lymphocyt 10 - 50 % Normal No Dec 18 es informati 2016 [...] Low No Dec 18 mean 10.4 informati 2017 1:55 volume on in AM [Entitic source volume] data in Blood by Automated count Platelets 142 - 424 K/mm3 Normal No Dec 18 informati 2017 1:55 [#/volume on in AM ] in source Blood data Erythrocy 4.6 - 6.2 M/mm3 Low No Dec 18 felix informati 2017 1:55 [#/volume on in AM ] in source Amniotic data fluid Erythrocy 11.5 - % Normal No Dec 18 te 17.5 informati 2017 1:55 distribut on in AM ion width [...] assay source Ginger BLACK data n 12/04/16 [id number] Delaney Pharmacis t recommend ation for Warfarint herapy is: PATIENT INR 1.9 TODAY VIA FINGERSTI CK.RECOMM ENDED PATIENT INCREASE WEEKLY DOSE BY 1.5 MG TOWARFARI N 3 MG ON SUN/SUN/ HU/SAT; 1.5 MG ON SUN/SUN/ RI.WILL FOLLOW UP IN 3 WEEKS. *FOR [...] INDICATIO Nov 26 Blood by informati N 2016 4:55 Coagulati on in PM on assay [...] Interpr Notes Date ti ce etation Range Amylase 25 - 115 U/L Normal No Nov 26 [Enzymati informati 2016 4:55 c on in PM activity/ source volume] data in Serum or Plasma Comprehensive metabolic 2000 panel in Serum or Plasma Observa Value Referen Units Interpr Notes Date tion ce etation Range Albumin/G 1.1 - 1.8 No Normal No Nov 26 lobulin informati informati 2016 4:55 [Mass on in on in PM ratio] in source source Serum or data data Plasma Albumin 3.4 - 5.0 gm/dL Normal No Nov 26 [Mass/vol informati 2016 4:55 ume] in on in PM Serum or source Plasma data Alkaline 46 - 116 U/L Normal No Nov 26 phosphata informati 2016 4:55 se on in PM [Enzymati source c data activity/ volume] in Serum or Plasma Bilirubin 0.2 - 1.0 mg/dL Normal No Nov 26 .total informati 2016 4:55 [Mass/vol on in PM ume] in source Serum or data Plasma Urea 7 - 18 mg/dL High No Nov 26 nitrogen informati 2016 4:55 [Mass/vol on in PM [...] High No Nov 26 dioxide, 32.0 informati 2016 4:55 total on in PM [Moles/vo source lume] in data Serum or Plasma Creatinin 0.70 - mg/dL High No Nov 26 e 1.30 informati 2016 4:55 [Mass/vol on in PM ume] in source Serum or data Plasma Creatinin 50 - 200 ML/MIN Low No Nov 26 e renal informati 2016 4:55 clearance on in PM source predicted data by Cockcroft -Gault formula Estimated >60 ML/MIN No REFERENCE Markus 25 informati RANGE: 2017 4:55 glomerula on in >60 PM r source ML/MIN/1. filtratio data 73 SQUARE n rate METERSIf (GF this patient is -A merican, then multiply theresult by 1.210. Globulin 1.3 - 3.2 gm/dL Normal No Nov 26 [Mass/vol informati 2016 4:55 ume] in on in PM Serum source data Glucose 74 - 106 mg/dL High No Nov 25 [Mass/vol informati 2016 4:55 ume] in on [...] - 37 U/L Low No Nov 26 inform2016 4:55 aminotran on in PM sferase source [Enzymati data c activity/ volume] in Serum or Plasma Alanine 12 - 78 U/L Normal No Nov 26 aminotran inform2016 4:55 sferase on in PM [Enzymati source c data activity/ volume] in Serum or Plasma Protein 6.4 - 8.2 gm/dL Normal No Nov 26 [Mass/vol inform2016 4:55 ume] in on in PM Serum or source Plasma data Lipase [Enzymatic activity/volume] in Serum or Plasma Observa Value Referen Units Interpr Notes Date tion ce etation Range Lipase 73 - 393 U/L Normal No Nov 26 [Enzymati inform2016 4:55 c on in PM activity/ source volume] data in Serum or Plasma CBC W Auto Differential panel in Blood Observa Value Referen Units Interpr Notes Date ti ce etation Range Basophils 0 - 0.2 K/MM3 Normal No Nov 262016 4:55 [#/volume on in PM ] in source Blood by data Automated count Basophils 0.1 - 2.0 % Normal No Nov 26 / informati 2016 4:55 leukocyte on in PM s in source Blood by data Automated count Eosinophi 0.0 - 0.4 K/mm3 Normal No Nov 26 ls inform2016 4:55 [#/volume on in PM ] in [...] Automated count Hematocri 42.0 - % Low Nov 26 t [Volume 52.0 informati 2016 4:55 on in PM Fraction] source of Blood data Hemoglobi 14.1 - g/dL Low No Nov 26 n 18.0 informati 2016 4:55 [Mass/vol on in PM ume] in source Blood data Lymphocyt 0.7 - 4.5 K/mm3 Normal No Nov 25 es informati 2016 4:55 [#/volume on in PM ] in source Unspecifi data ed specimen by Automated count Lymphocyt 10 - 50 % Normal No Nov 25 es informati 2016 4:55 [#/volume on in PM ] in source Unspecifi data ed specimen by Automated count Erythrocy 27 - 31.2 pg High No Nov 25 te mean informati 2016 4:55 corpuscul on in PM ar source hemoglobi data n [Entitic mass] Erythrocy 31.8 - g/dl Normal No Nov 26 te mean 35.4 informati 2017 4:55 corpuscul on in PM ar source hemoglobi data n concentra tion [Mass/vol ume] by Automated count Erythrocy 82.2 - fl High No Nov 26 te mean 97.8 informati 2016 4:55 corpuscul on in PM ar volume source [Entitic data volume] by Automated count Monocytes 0.1 - 1.0 K/mm3 Normal No Nov 25 informati 2017 4:55 [#/volume [...] mg/dL Normal No Nov 21 nitrogen informati 2017 [Mass/vol on in 10:20 AM [...] High No Nov 21 e 1.30 informati 2016 [Mass/vol on in 10:20 AM [...] - 5.1 mmoL/L Normal No Nov 21 inform2016 [Moles/vo on in 10:20 AM lume] in [...] informati sent to: 2017 Coagulati on in [facility] [place] 10:30 AM on assay source Ginger BLACK data n 11/13/16 [id number] enship,Ji mmy Pharmacis t recommend ation for Warfarint herapy is: PATIENT INR 2.1 TODAY VIA FINGERSTI CK.RECOMM ENDED PATIENT INCREASE WEEKLY DOSE BY 1.5 MG TOWARFARI N 3 MG ON SUN/SUN/ RI; 1.5 MG ON SUN/SUN/ HU/SAT.WI LL FOLLOW UP IN 3 WEEKS. *FOR DETAILED INFORMATI ON-PLEASE REVIEW PROGRESS NOTEI N THE ASSESSMEN AND ANTICOAGU LATION [facility] IN [facility] REVIEWIND ICATION INR RANGETHER APY FOR DVT, PE, ATRIAL FIB; 2.0 - 3.0PROPHY LAXIS FOR VTETHERAP Y FOR MECHANICA L HEART 2.5 - 3.5VALVE; PREVENTIO N OF SYSTEMICE MBOLISM SECONDARY TO AMI INR in Blood by Coagulation assay Observa Value Referen Units Interpr Notes Date ti ce etation Range INR in 0.9 - 1.1 No High Results Nov 07 Blood by informati sent to: 2017 Coagulati on in [facility], [place] 12:30 PM on assay source Ginger BLACK data n 11/07/16 [id number] Trae jackson mmy Pharmacis t recommend ation for Warfarint herapy is: PATIENT INR 2.3 TODAY VIA FINGERSTI CK.RECOMM ENDED PATIENT TAKE WARFARIN 3 MG ON SUN/SUN; 1.5 MG ONS/SUN /SUN/EDDIE/ SAT. PATIENT DOSE REDUCED AT THIS TIME ASPATIENT IS NOT EATING WELL. FOR DETAILED INFORMATI ON-PLEASE REVIEW PROGRESS NOTEI N [facility] RE[facility] IC[facility] INR RANGETHER APY FOR DVT, [...] K/mm3 Normal No October 31 ls informati 2017 6:13 [#/volume on in AM ] in source Blood by data Automated count Eosinophi 0.1 - % Normal No October 31 ls/100 12.0 informati 2017 6:13 leukocyte on in AM s in source Blood by data Automated count Granulocy 1.3 - 8.0 K/mm3 Normal No October 31 felix informati 2017 6:13 [#/volume on in AM ] in source Blood by data Automated count Granulocy 37.0 - % High No October 31 felix/100 80.0 informati 2017 6:13 leukocyte on in AM s in source Blood by data Automated count Hematocri 42.0 - % Low No October 31 t [Volume 52.0 informati 2016 6:13 on in AM Fraction] source of Blood data Hemoglobi 14.1 - g/dL Low October 31 n 18.0 informati 2017 6:13 [Mass/vol on in AM ume] in source Blood data Lymphocyt 0.7 - 4.5 K/mm3 Low October 31 es informati 2017 6:13 [#/volume on in AM ] in source Unspecifi data ed specimen by Automated count Lymphocyt 10 - 50 % Low October 31 es informati 2017 6:13 [#/volume on in AM ] in source Unspecifi data ed specimen by Automated count Erythrocy 27 - 31.2 pg High October 31 te mean informati 2017 6:13 corpuscul on in AM ar source hemoglobi data n [Entitic mass] Erythrocy 31.8 - g/dl Normal October 31 te mean 35.4 informati 2016 6:13 corpuscul on in AM ar source hemoglobi data n concentra tion [Mass/vol ume] by Automated count Erythrocy 82.2 - fl High October 31 te mean 97.8 informati 2017 [...] count Platelet 7.4 - fl Low October 31 mean 10.4 informati 2017 6:13 volume on in AM [Entitic source volume] data in Blood by Automated count Platelets 142 - 424 K/mm3 Low No October 31 informati 2016 6:13 [#/volume on in AM ] in source Blood data Erythrocy 4.6 - 6.2 M/mm3 Low No October 31 felix informati 2016 6:13 [#/volume on in AM ] in source Amniotic data fluid Erythrocy 11.5 - % Normal No October 31 te 17.5 informati 2016 6:13 distribut on in AM ion width source [Entitic data volume] by Automated count Leukocyte 4.8 - K/MM3 Normal No October 31 s 10.8 informati 2016 6:13 [#/volume on in AM ] in source Blood data Differential panel, method unspecified - Observa Value Referen Units Interpr Notes Date tion ce etation Range Neutrophi 0 - 8 % Normal No October 31 ls.band informati 2017 6:13 form/100 on in AM leukocyte source [...] - 9 % Normal No October 31 / informati 2016 6:13 leukocyte on in AM [...] U/L Normal No October 31 phosphata informati 2017 6:13 se on in AM [Enzymati source c data activity/ volume] in Serum or Plasma Bilirubin 0.2 - 1.0 mg/dL Normal No October 31 .total informati 2017 6:13 [Mass/vol on in AM ume] in source Serum or data Plasma Urea 7 - 18 mg/dL High No October 31 nitrogen informati 2016 6:13 [Mass/vol on in AM ume] in source Serum or data Plasma Calcium 8.5 - mg/dL Low No October 31 [Mass/vol 10.1 informati 2016 6:13 ume] in on in [...] High No October 31 e 1.30 informati 2017 6:13 [Mass/vol on in AM ume] in source Serum or data Plasma Creatinin 50 - 200 ML/MIN Low No October 31 e renal informati 2017 6:13 clearance on in AM source predicted [...] 5.1 mmoL/L Normal No October 31 informati 2017 6:13 [Moles/vo on in AM lume] in source Serum or data Plasma Sodium 136 - 145 mmoL/L High No October 31 [Moles/vo informati 2016 6:13 lume] in on in AM Serum or source Plasma data Aspartate 15 - 37 U/L No No October 31 informati informati 2016 6:13 aminotran on in on in AM sferase source source [Enzymati data data c activity/ volume] in Serum or Plasma Alanine 12 - 78 U/L No October 31 aminotran informati informati 2016 [...] No October 30 in time 11.8 informati 2017 6:00 (PT) in on in AM Platelet [...] - 2.0 % Normal No October 29 / informati 2017 6:25 leukocyte on in AM s in source Blood by data Automated count Eosinophi 0.0 - 0.4 K/mm3 Normal No October 29 ls informati 2016 6:25 [#/volume on in AM ] in source Blood by data Automated count Eosinophi 0.1 - % Normal No October 29 ls/100 12.0 informati 2016 6:25 [...] 50 % Low October 29 es informati 2017 6:25 [#/volume on in AM ] in source Unspecifi data ed specimen by Automated count Erythrocy 27 - 31.2 pg High No October 29 te mean informati 2016 6:25 corpuscul on in AM ar source hemoglobi data n [Entitic mass] Erythrocy 31.8 - g/dl Normal October 29 te mean 35.4 informati 2016 6:25 corpuscul on in AM ar source hemoglobi data n concentra tion [Mass/vol ume] by Automated count Erythrocy 82.2 - fl High No October 29 te mean 97.8 informati 2016 6:25 corpuscul on in AM ar volume source [Entitic data volume] by Automated count Monocytes 0.1 - 1.0 K/mm3 Normal No October 292016 6:25 [#/volume on in AM ] in source Blood by data Automated count Monocytes 1.7 - 9.3 % Normal No October 29 informati 2016 6:25 leukocyte on in AM s in source Blood by data Automated count Platelet 7.4 - fl Low No October 29 mean 10.4 informati 2016 6:25 volume on in AM [Entitic source volume] data in Blood by Automated count Platelets 142 - 424 K/mm3 Low No October 29 inform2016 6:25 [#/volume on in AM ] in source Blood data Erythrocy 4.6 - 6.2 M/mm3 Low No October 29 felix informati 2016 6:25 [#/volume on in AM ] in source Amniotic data fluid Erythrocy 11.5 - % Normal October 29 te 17.5 informati 2016 6:25 distribut on in AM ion width source [Entitic data volume] by Automated count Leukocyte 4.8 - K/MM3 No October 29 s 10.8 informati informati [...] 10 - 50 % Low No October 292016 tion in 6:25 AM source data Macrocy 1+ No No No No October 29 felix informa informa informa informa 2016 [Presen tion in tion in tion in tion in 6:25 AM ce] in source source source source Blood data data data data Monocytes 2 - 9 % Low No October 29 informati 2016 6:25 leukocyte [...] 76 % Normal No October 29 ls 2016 6:25 [#/volume on in AM ] in source Blood by data Automated count Cells No #CELLS No No October 29 Counted informati ati 2016 6:25 Total [#] on in on in on in AM in Blood source source source data data data Toxic 1+ No No No No October 29 granule informa informa informa informa 2016 s tion in tion in tion in tion in 6:25 AM [Presen source source source source ce] in data data data data Blood by Light microsc opy Legionella pneumophila 1 Ag [Presence] in Urine by Immunoassay Observa Value Referen Units Interpr Notes Date ti ce etation Range Legione Negativ Negativ No No Presump October 28 lla e e informa informa ti 2017 pneumop tion in tion in negativ [...] disease .Perfor med at: BN - [facility] [address] [id number]Lab Directo r: Car Vergara MD, Phone: [phone] Lactate [Moles/volume] in Serum or Plasma Observa [...] MMOL/L Normal No October 28 excess in 2016 Arterial on in 11:19 AM blood source data Arteria ACCEPTA No No No No October 28 l BLE informa informa informa informa 2016 patency tion in tion in tion in tion in 11:19 Wrist source source source source AM artery data data data data --pre arteria l punctur e Bicarbona 22.0 - MMOL/L Normal No October 28 te 26.0 informati 2016 [Moles/vo on in 11:19 AM lume] in [...] MMOL/L Normal No October 28 Arterial 7.45 inform2016 blood on in 11:19 AM source data [...] Low No October 28 e renal informati 2017 clearance on in 10:10 AM source predicted [...] 3.5 - 5.1 mmoL/L Normal No October 282016 [Moles/vo on in 10:10 AM lume] in source Serum or data Plasma Sodium 136 - 145 mmoL/L Normal No October 28 [Moles/vo 2016 lume] in on in 10:10 AM [...] 8.2 gm/dL Normal No October 28 [Mass/vol informati [...] g/dL Normal No October 28 n 18.0 informati 2016 [Mass/vol on in 10:10 AM [...] pg High No October 28 te mean inform2016 corpuscul on in 10:10 AM ar source hemoglobi data n [Entitic mass] Erythrocy 31.8 - g/dl Normal No October 28 te mean 35.4 2016 corpuscul on in 10:10 AM ar source hemoglobi data n concentra tion [Mass/vol ume] by Automated count Erythrocy 82.2 - fl High October 28 te mean 97.8 inform2016 corpuscul on in 10:10 AM ar volume source [Entitic data volume] by Automated count Monocytes 0.1 - 1.0 K/mm3 Normal No October 282016 [#/volume on in [...] 6.2 M/mm3 Low No October 28 felix informati 2016 [#/volume on in 10:10 AM ] in source Amniotic data fluid Erythrocy 11.5 - % Normal No October 28 te 17.5 inform2016 distribut on in 10:10 AM ion width source [Entitic data volume] by Automated count Leukocyte 4.8 - K/MM3 High October 28 s 10.8 informati 2016 [#/volume on in 10:10 AM ] in source Blood data Influenza virus A+B Ag [Presence] in Unspecified specimen Observa Value Referen Units Interpr Notes Date tion ce etation Range Influen NOT NOT No No October 28 za DETECTE DETECTD informa informa 2016 virus A D tion in tion in 9:55 AM Ag source source [Presen data data ce] in Unspeci fied specime n Influen NOT NOT No No No October 28 za DETECTE DETECTD informa informa informa 2016 virus B D tion in tion in [...] No October 28 gravity 1.030 informati informati 2016 9:52 of Urine on in on in AM source source data data Urobili 1.0 NEG E.U./dL No No October 28 nogen informa informa 2016 [Presen tion in tion in 9:52 AM ce] in source source Urine data data by Test strip
--- OUTSIDE RECORDS SUMMARY | 2017-01-01 08:56 | External Medical Summary Rpt ---
Author Author [employer], [employer] Organization [employer] Address Unknown Phone Unavailable Payers Section Payer Plan Name Group ID Member ID Coverage Coverage Start End Date Date MEDICARE "" [id number] No No A informati informati on in on in source source data data UMR "" [id number] No No 809 informati informati on in [...] informati sent [facility]: [facility] on assay source Ginger [...] informati sent to: 2017 Coagulati on in [facility] 10:30 AM on assay source [...] NOTEI N THE ASSESSMEN AND ANTICOAGU [facility] IN [facility] REVIEWIND ICATION INR RANGETHER APY FOR DVT, [...] informati sent to: 2017 Coagulati on in [facility] 12:30 PM on assay source [...] PROGRESS NOTEI N THE ASSESSMEN AND ANTICOAGU [facility] REVIEWIND ICATION INR RANGETHER APY FOR DVT, [...] disease .Perfor med at: [facility] - [facility] [address] [id number]Lab Directo r: Car Vergara MD, Phone: [phone] Lactate [Moles/volume] in Serum or Plasma Observa [...]
[2017-01-01] MEDS ORDERED: LORATADINE 10MG10 M1 PO (09:12)
[2017-01-01] MEDS ORDERED: ALBUTEROL2.5 MG/NEB INH (09:12)
[2017-01-01] MEDS ORDERED: MIRALAX(PO17 GM/1 PA PO (09:14)
[2017-01-01] MEDS ORDERED: LISINOPRIL5 MG PO (09:15)
[2017-01-01] MEDS ORDERED: DIAZEPAM2 M1 PO (09:16)
[2017-01-01] MEDS ORDERED: HYDROCODONE/APA1 TA8 PO (09:16)
[2017-01-01] MEDS ORDERED: REGLAN 5MG TABLE5 MG PO (09:18)
--- NOTE | 2017-01-01 09:46 | Emergency Room Report ---
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 N Clinical Suspician of Infection? N Mental Status: 1 - Regular (Normal Baseline) Sepsis Risk:Low Sepsis Risk Have you (or family members/close friends) recently traveled outside the [place]? N If Yes, where/when: Have you had exposure to infectious disease within the past month? N TB? Other? Specify: Patient seen in ED two days ago with abdominal pain, and known hydronephrosis noted in Oct, 2016; CT scan also revealed hydronephrosis. Since taking Lortab he has been constipated. He is here for recheck as he has abdominal swelling and BLQ pain, nonradiating, with no urinary sx. ALLERGIES Coded Allergies: sulindac (Mild, JAUNDICE 07/07/16) esomeprazole (From Nexium) (Intermediate, N/V/D 07/07/16) niacin (Intermediate, FLUSHING 07/07/16) Home Medications Active Scripts Device (Oxygen (Concentrator)) 1 UNIT IH CONSTANT #1 DEV Ref 5 Prov: 11/02/16 Device (Oxygen, Portable) 1 UNIT IH CONSTANT #1 DEV Ref 5 Prov: 11/02/16 Reported Medications WARFARIN SOD (Warfarin 3MG) 1.5 MG PO MoFr WARFARIN SOD (Warfarin 3MG) 3 MG PO SuTuWeThSa Lisinopril 5 MG PO DAILY #90 Diazepam 2 MG PO BID PRN ANXIETY #60 Metoprolol Succinate Xl (Toprol Xl) 50 MG PO BID Amiodarone Hcl (Amiodarone 200MG) 200 MG PO DAILY Buspirone Hcl (Buspar 10MG) 10 MG PO BID #60 TAB Levothyroxine Sodium (Levothyroxine 0.125MG) 0.125 MG PO DAILY Alprazolam 0.25 MG PO TID PRN ANXIETY #1 TAB Furosemide 40 MG PO DAILY #1 TAB CHOLECALCIFEROL (VITAMIN D3) (Vitamin D3) 5,000 IUNITS PO SAT & WED Tiotropium [place] (Spiriva) 18 MCG IH DAILY PRN BREATHING Bioflav,Lemon/Vit Bcomp&C (Lipoflavovit Caplet) 1 EACH PO TID TAMSULOSIN HCL (Tamsulosin 0.4MG) 0.4 MG PO QHS Ranitidine Hcl (Zantac) 150 MG PO DAILY ASPIRIN (Aspirin) 81 MG PO DAILY Temazepam (Restoril 15MG) 15 MG PO QHS #30 Pantoprazole Sodium 40 MG PO DAILY #90 PRAVASTATIN SODIUM (Pravastatin Sodium) 40 MG PO QHS ALBUTEROL (Albuterol 0.083% Neb) 2.5 MG INH QID Loratadine (Loratadine 10MG Tablet) 10 MG PO DAILY POLYETHYLENE GLYCOL (Miralax) 17 GM PO DAILY HYDROCODONE/ACETAMINOPHEN (LORTAB 5-325 (generic)) 1 TAB PO Q6HP PRN PAIN Metoclopramide Hcl (Reglan) 5 MG PO AC History Medical History General CAD? No Angina: No GA: No Hypertension? Yes Hyperlipidemia? Yes CHF? No DVT? No PE? No COPD? Yes Asthma? No Anemia? No GERD? Yes Gastric ulcers? No GI Bleed? No Hernia? Yes Thyroid Problems? Yes Hypothyroidism? No CVA? No Seizures? No Diabetes? No Renal Insuffiency? No End Stage Renal Disease? No UTI? No Stones? No BPH? Yes GB Disease: No Nephritic Syndrome? No Asplenia? No Hepatitis? No Sickle Cell Disease? No Arthritis? Yes Migraines? No Cataracts? No Glaucoma? No MRSA? No HIV? No TB? No Anxiety? Yes Depression? 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 No Immunization Hx DT/Tetanus Unknown Flu 2015-FSN Pneumonia Received In Past Surgical Hx Previous Surgery?Y PACEMAKER HEART STENTS GALLBLADDER COLON RESECTION CATARACTS EAR TUBES 12/13 LESIONS FACE HERNIA SURGERY Family History Family Hx Diabetes No CAD Yes Hypertension Yes Hyperlipidemia Yes Cancer Yes TB No Social History Smoking Hx Smoker: Never Smoker Tobacco: No Packs/day N/A Alcohol Alcohol: No Review of Systems All Other Systems Reviewed and Negative Gastrointestinal see HPI Genitourinary see HPI. Physical Exam Vital Signs Vital Signs Date Time Temp Pulse Resp B/P Pulse O2 O2 Flow FiO2 Ox Delivery Rate 01/01 1053 75 18 148/72 96 01/01 1002 73 14 141/71 97 01/01 0919 98.2 74 18 130/71 97 01/01 0900 99.0 76 20 116/68 95 General Appearance normal appearance, WD/WN, no apparent distress Eye Exam - bilateral eye normal exam, bilateral eye PERRL, bilateral eye EOMI Neck normal inspection, non-tender, supple, full range of motion Respiratory Status Yes: trachea midline, chest symmetrical, non tender chest. No: respiratory distress, tender on palpation, use of accessory muscles, pain on inspiration, pain on expiration, productive cough, non productive cough. Lung Sounds bilateral: normal breath sounds, lungs clear. Cardiovascular normal exam, regular rate/rhythm, no peripheral edema, no gallop, no JVD, no murmur, no rub, normal peripheral pulses Gastrointestinal normal bowel sounds, normal exam, soft, no organomegaly, no pulsatile mass, no guarding, no rebound (pain w/ palpable stool RLQ), tenderness Back normal inspection, no CVA tenderness, no vertebral tenderness, bowel/ bladder continent, gait normal, strt leg raising(L)-NML, strt leg raising(R)-NML Extremities non-tender, normal range of motion, normal inspection, normal capillary refill, no calf tenderness, no pedal edema Strength 5 Upper Ext (L), 5 Upper Ext (R), 5 Lower Ext (L), 5 Lower Ext (R) Neurologic alert, normal exam, no motor/sensory deficits, oriented x 3 (very INUPIAT but alert,cooperative) Glascow Coma Scale Glascow Coma Scale Response Value EYE response: 4 Spontaneously 4 MOTOR response: 6 OBEYS 6 VERBAL response: 5 Oriented & Converses 5 Total 15 Skin intact, normal color, warm/dry Lymphatic no adenopathy Medical Decision Making LABS/Meds/Orders Pt receiving controlled substance in ED? No (on Lortab outpt) Results/Orders Laboratory Tests 01/01/17 1030: Urine Color YELLOW, Urine Appearance CLEAR, Urine pH 7.5, Ur Specific [place] 1.015, Urine Protein TRACE H, Urine Ketones NEGATIVE, Urine Blood 1+ H, Urine Nitrate NEGATIVE, Urine Bilirubin NEGATIVE, Urine Urobilinogen 1.0, Ur Leukocyte Esterase NEGATIVE, Urine RBC 20-50, Urine WBC OCC, Ur Squamous Epith Cells OCC, Urine Bacteria TRACE, Urine Mucus 2+, Urine Glucose NEGATIVE 01/01/17919: Lactic Acid 1.1 01/01/17919: Sodium 137, Potassium 4.2, Chloride 102, Carbon Dioxide 28, BUN 19 H, Creatinine 2.1 H, Estimated Creat Clear 32 L, Estimated GFR (MDRD) 30, Glucose 138 H, Calcium 8.1 L, Total Bilirubin 0.9, AST 16, ALT 18, Alkaline Phosphatase 81, Total Protein 6.2 L, Albumin 3.3 L, Globulin 2.9, Albumin/ Globulin Ratio 1.1, PT 33.5 H, INR 3.07 H, APTT 50.5 *H, WBC 8.7, RBC 3.87 L, Hgb 12.6 L, Hct 37.5 L, MCV 96.8, RDW 14.1, Plt Count 137 L, MPV 7.3 L, Gran % 81.5 H, Gran # 7.1, Lymphocytes % 12.2, Monocytes % 4.2, Eosinophils % 1.6, Basophils % 0.4, Lymphocytes # 1.1, Monocytes # 0.4, Eosinophils # 0.1, Basophils # 0.0, PUBS MCHC 33.7, MCH 32.6 H Current Medication Orders Sig/Cassi Start time Last Medication Dose Route Stop Time Status Admin Sodium Chloride 10 ML PRN PRN 01/01 930 AC IV 01/03 924 Orders Procedure Date/time Status DIET-NOTHING BY MOUTH 01/01 L Active URINALYSIS/COMPLETE 01/01 1028 Complete PARTIAL THROMBOPLASTIN TIME 01/01 946 Complete PROTHROMBIN TIME 01/[address] ABD/PELVIS REQ 01/01 925 Complete IV SALINE LOCK 01/01 925 Active CULTURE, BLOOD 01/01 925 Active LACTIC ACID 01/01 925 Complete CBC WITH AUTO DIFF 01/01 925 Complete CHEM 12 PROFILE 01/01 925 Complete XRAY/CT/US XRAY/CT/US XRAY abdomen, pelvis CT interpretation by reviewed by me (report reviewed) Time results known: 1110 CT Results normal/NAD (stool R colon;stranding,hydro), prior hydro seen two days ago as well as in May of 2017, with increased interval stranding noted, and UPJ obstruction, not necessarily a stone. Consult MD Physician Consult Consult/PCP Dr. Abbasi's office will call pt at home to set up for outpt studies. Time Called 1054 Reason Urology eval/care Comments Paging patient's urologist, Dr Abbasi. Departure Departure Time of Disposition 1130 Disposition DC Home or Self Care(routine) Clinical Impression Primary Impression: Obstipation Secondary Impressions: Abdominal pain Qualifiers: Abdominal location: lower abdomen, unspecified Qualified Code: R10.30 - Lower abdominal pain, unspecified Hydronephrosis, left Condition STABLE Referrals Serafin Stevens MD (Family) Patient Instructions Constipation Additional Instructions Increase Miralax to one scoop in juice or water twice a day; drink one bottle of Mag Citrate on arrival home; only take the Lortab every six hours NEEDED for pain as it is what is causing you to be constipated. Dr. Abbasi's office will call this afternoon to schedule outpatient visits and studies. See Dr. Stevens for the constipation in one to two days if any further issues. Discharge Counseling Counseled pt/family regarding diagnosis, test results, medications/RX, home care ED Critical Care Critical Care No at [id number]
[2017-01-01 10:11] LABS: HEMOGLOBIN 12.6 g/dL (14.1-18.0); LYMPH # 1.1 K/mm3 (0.7-4.5); LYMPH % 12.2 % (10-50)
[2017-01-01 10:38] LABS: URINE BILIRUBIN - DIPSTICK NEGATIVE (NEG); URINE BLOOD 1+ (NEG)
--- NOTE | 2017-01-01 10:45 | RADIOLOGY REPORT PS360 ---
CT ABD PELVIS W/O CONTRAST HISTORY: WORSENING ABD PAIN W/HYDRONEPH SEEN ON PRIOR CT Ordering Physician: Liudmila Yeager MD Patient Age: 86 years: Male TECHNIQUE: Helical CT scanning through abdomen and pelvis with no oral nor IV contrast utilized. Sagittal coronal reconstruction CT workstation COMPARISON is made to previous recent CT abdomen pelvis from 12/30/2016. There is also a October 10, [address] without contrast available for comparison. FINDINGS : LEFT KIDNEY hydronephrosis The significant finding is the generous hydronephrosis the left kidney. Increased stranding anterior to the left renal pelvis and surrounding the left kidney since 12/30/2016 CT.. Additional wispy fluid is seen outlining the margin of Gerota's fascia, mainly anteriorly. Also scant Wispy fluid extending inferiorly towards left paracolic gutter. -These features have progressed since prior study and may reflect the high-grade obstructive uropathy most likely, although could reflect an associated pyelonephritis. This site of obstruction is at the left UPJ. Subtle density seen here but no calcification nor discrete calcified stone.. This could reflect a a noncalcified stones vs less likely a persistent mildly hyperdense clot vs potentially developing obstructing intraluminal lesion at the left UPJ. This hydronephrosis process dates back to October 2016 . However I would note There was a normal left collecting system here in 2014 No calculi along the course of the mid and distal left ureter but there is some mild stranding along the left ureter extending from features above the obstruction. 4.6 cm benign renal cyst at the lower pole left kidney again noted. Stable RIGHT KIDNEY unchanged. Small 2 mm nonobstructing calculus upper pole right kidney. 17 mm times 15 mm benign renal cyst along lateral margin right kidney. Stable. A tiny 10 mm cyst at medial margin right kidney stable No retroperitoneal nor mesenteric nor pelvic adenopathy PELVIS. Prostate is enlarged measuring 6.7 cm wide. This mildly indents the base the bladder upper normal wall thickness at bladder. No calculi are seen within the urinary bladder . The calcified node or ovoid calcified structure in cul-de-sac measuring 15 mm x 8 mm is again noted and unchanged since October 2016. Minimal stable density reflecting previous right inguinal hernia repair -------- Lung bases. Again see chronic changes anterior RML. With pleural and parenchymal scarring scarring RML dating back to 2014. Suggestion of slight additional atelectasis here and difficult to exclude subtle infiltrate just above this region. Today but mainly of these reflect chronic changes here. Heart. Small pericardial effusion again noted. Mild cardiomegaly. Pacemaker. Abdomen and pelvis. Lack of oral and IV contrast decreases sensitivity Liver. Stable bilobed cystic area dome of left lobe. Measuring 17 mm. This feature as well as overall liver appearance Unchanged since 2015. Spleen. Normal size. Pancreas. Unremarkable on this noncontrast study. Gallbladder is been removed. No biliary ductal dilatation. Adrenals unremarkable Prominent stool at the right colon reflecting moderate constipation at the right and transverse colon. Only Minimal stool at the left colon. A few diverticuli sigmoid colon but no diverticulitis. Appendix appears normal size and contains stool-like material. No appendicitis. Terminal ileum unremarkable. Small bowel appears satisfactory. A radiopaque material within stomach likely reflect ingested material . Degenerative changes throughout the spine again noted. With facet hypertrophy most evident L5/S1,> L4/5 and L3/4. note: This study was dictated with a voice-recognition system. There may be typographical error is related to such. If they are significant please notify us for corrections IMPRESSION: 1.. Generous hydronephrosis on left again observed due to the obstruction at the left UPJ region. . Additional stranding now seen surrounding the left renal pelvis and left kidney -The left UPJ obstruction due to a noncalcified stone; vs conceivably could be due to a intraluminal lesion or clot. In either case there is prominent additional stranding surrounding the left renal pelvis & left kidney when compared to recent 12/30/2016 CT.... Most likely reflecting sequela of the high-grade obstruction. (Pyelonephritis could yield similar appearance less likely. Warrants correlation with urinalysis with urology follow-up.) 2. Prostate enlarged and slightly indents the base of bladder. 3. Other stable features and findings as described in text
[2017-01-01 10:55] LABS: URINE SQUAMOUS CELLS OCC #/hpf (OCC)
[2017-01-01 11:47] VITALS: BP 148/72
== END 2017-01-01 11:57 | disposition home or self-care (01) ==
LOC: UTC 08:47 → ER 08:51
PROVIDERS: Emergency Medicine
DX: K59.00 Constipation, unspecified (principal); R10.30 Lower abdominal pain, unspecified; N13.30 Unspecified hydronephrosis; I10 Essential (primary) hypertension; J44.9 Chronic obstructive pulmonary disease, unspecified; K21.9 Gastro-esophageal reflux disease without esophagitis

== ENCOUNTER 2017-02-07 15:29 | Emergency (ER) | payer MEDICARE ==
[~2017-02-07] VITALS: Ht 175.3 cm; Wt 88.0 kg
[~2017-02-07 15:29] MED LIST changes: +ALBUTEROL2.5 MG/NEB INH; +DIAZEPAM2 M1 PO; +LORATADINE 10MG10 M1 PO; +MIRALAX(PO17 GM/1 PA PO; +REGLAN 5MG TABLE5 MG PO
[2017-02-07] MEDS ORDERED: AMOXICILLIN875 MG PO (16:18)
--- NOTE | 2017-02-07 16:18 | Urgent Treatment Center Report ---
History of Present Issue Date/Time Seen by Provider 02/07/17 1608 Visit Reason Pt arrived:Walked Presenting Problem:PT STATES SINUS PRESSURE AND CHEST CONGESTION Location if Accident: Onset of symptoms date/time:/ or onset unknown for:MEDICAL HX UNKNOWN Have you (or family members/close friends) recently traveled outside the [place]? N If Yes, where/when: Have you had exposure to infectious disease within the past month? TB? Other? Specify: Here w/ c/o clear runny nose since "before I got out of bed this morning". worried he has a sinus infection, pt worried about pneumonia. Pt denies sinus congestion or pain. Very little cough. No fever, aches, chills. Surgery to remove a kidney in one week. pt worried because last time surgery scheduled, he got hospitalized for pneumonia. this does not feel the same "but you never know ". Took Coriciden HBP once this morning. told him it won't help because sinus infection and not a cold or virus. Pt is here today for an antibiotic "and to be sure it is not pneumonia". Pt reports he felt perfectly fine yesterday. No known sick contacts. Source patient Exam Limitations no limitations ALLERGIES Coded Allergies: sulindac (Mild, JAUNDICE 07/07/16) esomeprazole (From Nexium) (Intermediate, N/V/D 07/07/16) niacin (Intermediate, FLUSHING 07/07/16) Home Medications Active Scripts Device (Oxygen (Concentrator)) 1 UNIT IH CONSTANT #1 DEV Ref 5 Prov: 11/02/16 Device (Oxygen, Portable) 1 UNIT IH CONSTANT #1 DEV Ref 5 Prov: 11/02/16 Reported Medications WARFARIN SOD (Warfarin 3MG) 1.5 MG PO MoFr WARFARIN SOD (Warfarin 3MG) 3 MG PO SuTuWeThSa Lisinopril 5 MG PO DAILY #90 Diazepam 2 MG PO BID PRN ANXIETY #60 Metoprolol Succinate Xl (Toprol Xl) 50 MG PO BID Amiodarone Hcl (Amiodarone 200MG) 200 MG PO DAILY Buspirone Hcl (Buspar 10MG) 10 MG PO BID #60 TAB Levothyroxine Sodium (Levothyroxine 0.125MG) 0.125 MG PO DAILY Alprazolam 0.25 MG PO TID PRN ANXIETY #1 TAB Furosemide 40 MG PO DAILY #1 TAB CHOLECALCIFEROL (VITAMIN D3) (Vitamin D3) 5,000 IUNITS PO SAT & WED Tiotropium [place] (Spiriva) 18 MCG IH DAILY PRN BREATHING Bioflav,Lemon/Vit Bcomp&C (Lipoflavovit Caplet) 1 EACH PO TID TAMSULOSIN HCL (Tamsulosin 0.4MG) 0.4 MG PO QHS Ranitidine Hcl (Zantac) 150 MG PO DAILY ASPIRIN (Aspirin) 81 MG PO DAILY Temazepam (Restoril 15MG) 15 MG PO QHS #30 Pantoprazole Sodium 40 MG PO DAILY #90 PRAVASTATIN SODIUM (Pravastatin Sodium) 40 MG PO QHS ALBUTEROL (Albuterol 0.083% Neb) 2.5 MG INH QID Loratadine (Loratadine 10MG Tablet) 10 MG PO DAILY POLYETHYLENE GLYCOL (Miralax) 17 GM PO DAILY HYDROCODONE/ACETAMINOPHEN (LORTAB 5-325 (generic)) 1 TAB PO Q6HP PRN PAIN Metoclopramide Hcl (Reglan) 5 MG PO AC History Medical History General CAD? No Angina: No NM: No Hypertension? Yes Hyperlipidemia? Yes CHF? No DVT? No PE? No COPD? Yes Asthma? No Anemia? No GERD? Yes Gastric ulcers? No GI Bleed? No Hernia? Yes Thyroid Problems? Yes Hypothyroidism? No CVA? No Seizures? No Diabetes? No Renal Insuffiency? No UTI? No Stones? No BPH? Yes GB Disease: No Nephritic Syndrome? No Asplenia? No Hepatitis? No Sickle Cell Disease? No Arthritis? Yes Migraines? No Cataracts? No Glaucoma? No MRSA? No HIV? No TB? No Anxiety? Yes Depression? 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 No Immunization HX DT/Tetanus Unknown Flu Flu Season Pneumonia Received In Past Surgical Hx Previous Surgery?Y PACEMAKER HEART STENTS GALLBLADDER COLON RESECTION CATARACTS EAR TUBES 12/13 LESIONS FACE HERNIA SURGERY Family History Family HX Diabetes No CAD Yes Hypertension Yes Hyperlipidemia Yes Cancer Yes TB No Social History Smoking Hx Smoker: Never Smoker Tobacco: No Packs/day N/A Alcohol Alcohol: No Review of Systems All Other Systems Reviewed and Negative Constitutional see HPI Eyes denies drainage ENT denies: ear pain, ear discharge, nose congestion, throat pain, throat swelling. Respiratory see HPI, denies shortness of breath, denies wheezing Cardiovascular denies chest pain Gastrointestinal denies no symptoms reported Musculoskeletal see HPI Skin denies rash Psychiatric/Neurological denies headache Physical Exam Vital Signs Vital Signs Date Time Temp Pulse Resp B/P Pulse O2 O2 Flow FiO2 Ox Delivery Rate 02/07 1545 98.0 79 20 141/74 98 General Appearance no apparent distress, frail Eye Exam - bilateral eye normal exam Ear, Nose, Throat normal ENT inspection (x/ hearing aides) Neck non-tender, supple Respiratory Status No: respiratory distress, productive cough, non productive cough. Lung Sounds anterior: lungs clear. posterior: lungs clear. bilateral: lungs clear. Cardiovascular regular rate/rhythm, no peripheral edema, no murmur Neurologic alert, oriented x 3 Mental status normal mood/affect Skin normal color, warm/dry Lymphatic no adenopathy Medical Decision Making LABS/Meds/Orders Pt receiving controlled substance in ED? No Departure Departure Time of Disposition 1615 Disposition DC Home or Self Care(routine) Clinical Impression Primary Impression: Upper respiratory virus Condition STABLE Referrals Rodney BLACK,Serafin (Family) Follow up IMMEDIATELY for new or worsening symptoms OR no noticeable improvement over the next 72 hours. 911 for difficulty breathing or swallowing.* Patient Instructions DI for Viral Upper Respiratory Infection -- Adult Additional Instructions * No sign of bacterial infection. Likely viral. Virus can take 7-14 days to run their course * Continue Coricidin HBP for your symptoms. * Your symptoms are likely viral. An antibiotic will not make you feel better. Antibiotics are for bacterial infections. This is NOT a sinus infection. Viruses have to run their course with treating the symptoms. I understand you would prefer to have an antibiotic because you know your body and have surgery in one week and I will give you one only for that reason. Remember that as we discussed, antibiotics do come with side effects and risk including allergic reactions and resistance. Resistance to antibiotics can cause serious complications in the future if there is no antibiotic to treat an infection you have. Carefully consider this before starting antibiotics for symptoms that are likely viral * Monitor Temp. FU if you develop fevers * Encourage fluids, water, gatorade, powerade, pedialyte if infant/toddler/child * warm salt water gargles * warm fluids * sore throat lozenges * sleep elevated * humidifier/vaporizer Discharge Counseling Counseled pt/family regarding diagnosis, medications/RX, home care, follow up needs Prescriptions Current Visit Scripts AMOXICILLIN (Amoxicillin 875MG Tab) 875 MG PO BID #20 TAB at 1625
[2017-02-07 16:19] VITALS: BP 141/74
== END 2017-02-07 16:21 | disposition home or self-care (01) ==
LOC: UTC 15:29
DX: J06.9 Acute upper respiratory infection, unspecified (principal); K21.9 Gastro-esophageal reflux disease without esophagitis; J44.9 Chronic obstructive pulmonary disease, unspecified; I10 Essential (primary) hypertension; Z79.899 Other long term (current) drug therapy; F41.8 Other specified anxiety disorders

== ENCOUNTER 2017-02-09 07:09 | Inpatient (IN) | payer MEDICARE ==
[~2017-02-09] VITALS: Ht 175.3 cm; Wt 86.2 kg
[~2017-02-09 07:09] MED LIST changes: +AMOXICILLIN875 MG PO
[2017-02-09 07:17] VITALS: BP 151/60
--- NOTE | 2017-02-09 07:39 | Emergency Room Report ---
History of Present Illness Time Seen by [id number] Presenting Problem in Triage Pt arrived:Wheelchair Presenting Problem:PT ADVISES HE STARTED FEELING BAD YESTERDAY. 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 N Clinical Suspician of Infection? N Mental Status: 1 - Regular (Normal Baseline) Sepsis Risk:Low Sepsis Risk Have you (or family members/close friends) recently traveled outside the [place]? N If Yes, where/when: Have you had exposure to infectious disease within the past month? N TB? Other? Specify: Source patient, RN notes reviewed, family, RN/MD Exam Limitations no limitations Comment The patient is an 86-year-old male patient brought in by family, here with fever, chills, a general state of not feeling well, nausea and vomiting. Patient was seen in [facility] on 02/03, for similar symptoms, diagnosed with a "upper respiratory virus" and discharged home on amoxicillin. He is scheduled to pre- register this morning in [place], at [facility], for a LEFT nephrectomy (scheduled for next week). On arrival to the ER the Pox on RA was 85-87%. ALLERGIES Coded Allergies: sulindac (Mild, JAUNDICE 07/07/16) esomeprazole (From Nexium) (Intermediate, N/V/D 07/07/16) niacin (Intermediate, FLUSHING 07/07/16) (Mayte BLACK,Maksim Chowdhury) Home Medications Active Scripts Device (Oxygen (Concentrator)) 1 UNIT IH CONSTANT #1 DEV Ref 5 Prov: 11/02/16 Device (Oxygen, Portable) 1 UNIT IH CONSTANT #1 DEV Ref 5 Prov: 11/02/16 Reported Medications WARFARIN SOD (Warfarin 3MG) 1.5 MG PO MoFr WARFARIN SOD (Warfarin 3MG) 3 MG PO SuTuWeThSa Lisinopril 5 MG PO DAILY #90 Diazepam 2 MG PO BID PRN ANXIETY #60 Metoprolol Succinate Xl (Toprol Xl) 50 MG PO BID Amiodarone Hcl (Amiodarone 200MG) 200 MG PO DAILY Levothyroxine Sodium (Levothyroxine 0.125MG) 0.125 MG PO DAILY CHOLECALCIFEROL (VITAMIN D3) (Vitamin D3) 5,000 IUNITS PO SAT & WED Tiotropium [place] (Spiriva) 18 MCG IH DAILY PRN BREATHING Bioflav,Lemon/Vit Bcomp&C (Lipoflavovit Caplet) 1 EACH PO TID TAMSULOSIN HCL (Tamsulosin 0.4MG) 0.4 MG PO QHS Ranitidine Hcl (Zantac) 150 MG PO DAILY ASPIRIN (Aspirin) 81 MG PO DAILY Temazepam (Restoril 15MG) 15 MG PO QHS #30 Pantoprazole Sodium 40 MG PO DAILY #90 PRAVASTATIN SODIUM (Pravastatin Sodium) 40 MG PO QHS ALBUTEROL (Albuterol 0.083% Neb) 2.5 MG INH QID Loratadine (Loratadine 10MG Tablet) 10 MG PO DAILY POLYETHYLENE GLYCOL (Miralax) 17 GM PO DAILY HYDROCODONE/ACETAMINOPHEN (LORTAB 5-325 (generic)) 1 TAB PO Q6HP PRN PAIN Metoclopramide Hcl (Reglan) 5 MG PO AC (Jc Tinajero MD) History Medical History General CAD? No Angina: No [place]: No Hypertension? Yes Hyperlipidemia? Yes CHF? No DVT? No PE? No COPD? Yes Asthma? No Anemia? No GERD? Yes Gastric ulcers? No GI Bleed? No Hernia? Yes Thyroid Problems? Yes Hypothyroidism? No CVA? No Seizures? No Diabetes? No Renal Insuffiency? No End Stage Renal Disease? No UTI? No Stones? No BPH? Yes GB Disease: No Nephritic Syndrome? No Asplenia? No Hepatitis? No Sickle Cell Disease? No Arthritis? Yes Migraines? No Cataracts? No Glaucoma? No MRSA? No HIV? No TB? No Anxiety? Yes Depression? 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 No Immunization Hx DT/Tetanus Unknown Flu 2015-FSN Pneumonia Received In Past Surgical Hx Previous Surgery?Y PACEMAKER HEART STENTS GALLBLADDER COLON RESECTION CATARACTS EAR TUBES 12/13 LESIONS FACE HERNIA SURGERY Family History Family Hx Diabetes No CAD Yes Hypertension Yes Hyperlipidemia Yes Cancer Yes TB No Social History Smoking Hx Smoker: Never Smoker Tobacco: No Packs/day N/A Alcohol Alcohol: No (Maksim Hu MD) Review of Systems All Other Systems Reviewed and Negative Constitutional chills, diaphoresis, fever Respiratory cough, shortness of breath (Maksim Hu MD) Physical Exam Vital Signs Vital Signs Date Time Temp Pulse Resp B/P Pulse O2 O2 Flow FiO2 Ox Delivery Rate 02/10 912 75 18 127/56 96 3 02/10 912 98.0 73 18 127/46 92 02/09 0810 99.0 85 16 142/75 91 02/09 0809 89 02/09 0717 99.0 83 16 151/60 90 General Appearance normal appearance, WD/WN, mild distress, very hard of hearing Neck normal inspection, non-tender, supple, full range of motion Respiratory Status Yes: trachea midline, chest symmetrical, non tender chest. No: respiratory distress. Lung Sounds bilateral: normal breath sounds, lungs clear. 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 No Comment Patient turned over to Dr Tinajero at 08:00am, pending workup. Results/Orders Laboratory Tests 02/09/17 0827: Chlamy pneum (TEM-PCR) NOT DETECTED, Adenovirus (PCR) NOT DETECTED, B. pertussis DNA (PCR) NOT DETECTED, Coronavirus OC43 (PCR) NOT DETECTED, Coronavirus HKU1 ( PCR) NOT DETECTED, Coronavirus 229E (PCR) NOT DETECTED, Coronavirus NL63 (PCR) NOT DETECTED, Human Metapneumovir PCR NOT DETECTED, Influenza A (H1) PCR NOT DETECTED, Influ A (H1N1/09) PCR NOT DETECTED, Influenza A (H3) PCR NOT DETECTED, Influenza Type A (PCR) NOT DETECTED, Influenza Type B (PCR) NOT DETECTED, M. pneumoniae (PCR) NOT DETECTED, Parainfluenza 1 (PCR) NOT DETECTED, Parainfluenza 2 (PCR) NOT DETECTED, Parainfluenza 3 (PCR) NOT DETECTED, Parainfluenza 4 (PCR) NOT DETECTED, RSV (PCR) NOT DETECTED, Entero/Rhino (PCR) DETECTED H 02/09/17 0754: Creatine Kinase Cancelled, CK-MB (CK-2) Rel Index Cancelled, CK and CKMB Interp Cancelled, Troponin I Cancelled 02/09/17 0748: Lactic Acid Cancelled 02/09/17 0740: Lactic Acid 3.2 H 02/09/17 0740: TSH 2.67, Free T4 Index 9.7, Thyroxine (T4) 9.7, T3 Uptake 40 H 02/09/17 0740: Amylase 83, Lipase 61 L 02/09/17 0740: Sodium 141, Potassium 3.7, Chloride 104, Carbon Dioxide 27, BUN 19 H, Creatinine 1.9 H, Estimated Creat Clear 35 L, Estimated GFR (MDRD) 34, Glucose 134 H, Calcium 8.2 L, Total Bilirubin 1.0, AST 13 L, ALT 14, Alkaline Phosphatase 78, Creatine Kinase 77, CK-MB (CK-2) Rel Index 0.6, CK and CKMB Interp < 0.5, Troponin I 0.02, Total Protein 6.4, Albumin 3.5, Globulin 2.9, Albumin/Globulin Ratio 1.2, WBC 7.8, RBC 3.84 L, Hgb 12.7 L, Hct 37.1 L, MCV 96.6, RDW 14.0, Plt Count 153, MPV 8.0, Gran % 80.4 H, Gran # 6.3, Lymphocytes % 13.0, Monocytes % 4.7, Eosinophils % 1.3, Basophils % 0.5, Lymphocytes # 1.0, Monocytes # 0.4, Eosinophils # 0.1, Basophils # 0.0, PUBS MCHC 34.2, MCH 33.0 H Current Medication Orders Sig/Cassi Start time Last Medication Dose Route Stop Time Status Admin Ceftriaxone Sodium 0 .STK-MED ONE 02/09 823 DC IV Sodium Chloride 50 ML .STK-MED ONE 02/09 821 DC IV Azithromycin 500 MG ONCE ONE 02/10 800 DC 02/09 Sodium Chloride 250 ML IV 02/09 859 1002 Ceftriaxone Sodium 1 GM ONCE ONE 02/10 800 DC 02/09 Sodium Chloride 50 ML IV 02/09 829 08 Ondansetron HCl 4 MG ONCE ONE 02/09 0745 DC 02/09 IV 02/09 746 08 Ondansetron HCl 0 .STK-MED ONE 02/09 07 DC .ROUTE Sodium Chloride 10 ML PRN PRN 02/09 07 AC IV 02/10 722 Orders Procedure Date/time Status Decision to admit 02/09 917 Active UPPER RESPIRATORY PANEL, PCR 02/10 824 Complete OXYGEN PER NURSE 02/09 075 Active DRAFTING TECHNICIAN 02/09 075 Active ARTERIAL BLOOD GAS REQUEST 02/09 075 Active THYROID PANEL 2 (WITH TSH) 02/10 756 Complete ELECTROCARDIOGRAM REQUEST 02/09 075 Active LIPASE 02/10 748 Complete AMYLASE 02/10 748 Complete URINALYSIS/COMPLETE 02/09 747 Active CHEST-PORTABLE 02/09 722 Active IV SALINE LOCK 02/09 722 Active CULTURE, BLOOD 02/09 722 Active LACTIC ACID 02/09 722 Complete CBC WITH AUTO DIFF 02/09 722 Complete CARDIAC ENZYMES 02/09 722 Complete CHEM 12 PROFILE 02/09 722 Complete 12 LEAD EKG-PEDRO (INITIAL) 02/09 UNK Active CM/EKG 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 of ischemic chgs, no ectopy, normal QRS, normal ME, normal EKG, no EKG for comparison, non-spec. ST/Twave chgs, ST elevation, ST depression, LBBB, RBBB, ectopy, abnormal Q waves XRAY/CT/US XRAY/CT/US XRAY chest XR interpretation by reviewed by me Xray Results RLL + JOSE infiltrates (Mayte BLACK,Maksim Chowdhury) CM/EKG CM/EKG Comments EKG interpreted by Jc Tinajero MD: Rhythm: sinus Rate: 76 [place]: normal Ectopy: none Conduction: normal ST Segment Changes: none T Wave Changes: none Q Waves: none No evidence of acute ischemia or injury Baseline artifact present, but I consider the EKG adequate for accurate interpretation. Progress - 8:00 AM: At shift change, patient report received from Dr. Hu, and care of the patient assumed by me at this time. Patient seen and examined. He complains of a 2 day history of fevers, chills, runny nose, sore throat, productive cough. Seen at urgent treatment center couple of days ago and started on amoxicillin, but has not improved. He is also had some vomiting and diarrhea. Denies shortness of breath or chest pain. Off of Coumadin for 2 days in preparations for a surgery. Primary care physician is Dr. Stevens. 9:20 AM: I have discussed the case with Dr. Stevens who agrees to admit the patient to the hospital. We discussed the patient's clinical information, including history, exam, laboratory and radiology results and ED course. Per hospital procedure, I will write temporary bridge inpatient orders on the patient. (Tanvi BLACK, Jc) Departure Departure Time of Disposition 0800 Disposition Still a Patient Clinical Impression Primary Impression: Pneumonia Qualifiers: Pneumonia type: due to unspecified organism Laterality: right Lung location: lower lobe of lung Qualified Code: J18.1 - Lobar pneumonia, unspecified organism Secondary Impressions: Hypoxia Condition STABLE ED Critical Care Critical Care No (Maksim Hu MD) at 0805 at 1004 at 0805
--- NOTE | 2017-02-09 07:39 | Emergency Room Report ---
History of Present Illness Time Seen by [id number] Presenting Problem in Triage Pt arrived:Wheelchair Presenting Problem:PT ADVISES HE STARTED FEELING BAD YESTERDAY. 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 N Clinical Suspician of Infection? N Mental Status: 1 - Regular (Normal Baseline) Sepsis Risk:Low Sepsis Risk Have you (or family members/close friends) recently traveled outside the [place]? N If Yes, where/when: Have you had exposure to infectious disease within the past month? N TB? Other? Specify: Source patient, RN notes reviewed, family, RN/MD Exam Limitations no limitations Comment The patient is an 86-year-old male patient brought in by family, here with fever, chills, a general state of not feeling well, nausea and vomiting. Patient was seen in [facility] on 02/03, for similar symptoms, diagnosed with a "upper respiratory virus" and discharged home on amoxicillin. He is scheduled to pre- register this morning in [place], at [facility], for a LEFT nephrectomy (scheduled for next week). On arrival to the ER the Pox on RA was 85-87%. ALLERGIES Coded Allergies: sulindac (Mild, JAUNDICE 07/07/16) esomeprazole (From Nexium) (Intermediate, N/V/D 07/07/16) niacin (Intermediate, FLUSHING 07/07/16) (Mayte BLACK,Maksim Chowdhury) Home Medications Active Scripts Device (Oxygen (Concentrator)) 1 UNIT IH CONSTANT #1 DEV Ref 5 Prov: 11/02/16 Device (Oxygen, Portable) 1 UNIT IH CONSTANT #1 DEV Ref 5 Prov: 11/02/16 Reported Medications WARFARIN SOD (Warfarin 3MG) 1.5 MG PO MoFr WARFARIN SOD (Warfarin 3MG) 3 MG PO SuTuWeThSa Lisinopril 5 MG PO DAILY #90 Diazepam 2 MG PO BID PRN ANXIETY #60 Metoprolol Succinate Xl (Toprol Xl) 50 MG PO BID Amiodarone Hcl (Amiodarone 200MG) 200 MG PO DAILY Levothyroxine Sodium (Levothyroxine 0.125MG) 0.125 MG PO DAILY CHOLECALCIFEROL (VITAMIN D3) (Vitamin D3) 5,000 IUNITS PO SAT & WED Tiotropium [place] (Spiriva) 18 MCG IH DAILY PRN BREATHING Bioflav,Lemon/Vit Bcomp&C (Lipoflavovit Caplet) 1 EACH PO TID TAMSULOSIN HCL (Tamsulosin 0.4MG) 0.4 MG PO QHS Ranitidine Hcl (Zantac) 150 MG PO DAILY ASPIRIN (Aspirin) 81 MG PO DAILY Temazepam (Restoril 15MG) 15 MG PO QHS #30 Pantoprazole Sodium 40 MG PO DAILY #90 PRAVASTATIN SODIUM (Pravastatin Sodium) 40 MG PO QHS ALBUTEROL (Albuterol 0.083% Neb) 2.5 MG INH QID Loratadine (Loratadine 10MG Tablet) 10 MG PO DAILY POLYETHYLENE GLYCOL (Miralax) 17 GM PO DAILY HYDROCODONE/ACETAMINOPHEN (LORTAB 5-325 (generic)) 1 TAB PO Q6HP PRN PAIN Metoclopramide Hcl (Reglan) 5 MG PO AC (Jc Tinajero MD) History Medical History General CAD? No Angina: No [place]: No Hypertension? Yes Hyperlipidemia? Yes CHF? No DVT? No PE? No COPD? Yes Asthma? No Anemia? No GERD? Yes Gastric ulcers? No GI Bleed? No Hernia? Yes Thyroid Problems? Yes Hypothyroidism? No CVA? No Seizures? No Diabetes? No Renal Insuffiency? No End Stage Renal Disease? No UTI? No Stones? No BPH? Yes GB Disease: No Nephritic Syndrome? No Asplenia? No Hepatitis? No Sickle Cell Disease? No Arthritis? Yes Migraines? No Cataracts? No Glaucoma? No MRSA? No HIV? No TB? No Anxiety? Yes Depression? 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 No Immunization Hx DT/Tetanus Unknown Flu 2015-FSN Pneumonia Received In Past Surgical Hx Previous Surgery?Y PACEMAKER HEART STENTS GALLBLADDER COLON RESECTION CATARACTS EAR TUBES 12/13 LESIONS FACE HERNIA SURGERY Family History Family Hx Diabetes No CAD Yes Hypertension Yes Hyperlipidemia Yes Cancer Yes TB No Social History Smoking Hx Smoker: Never Smoker Tobacco: No Packs/day N/A Alcohol Alcohol: No (Maksim Hu MD) Review of Systems All Other Systems Reviewed and Negative Constitutional chills, diaphoresis, fever Respiratory cough, shortness of breath (Maksim Hu MD) Physical Exam Vital Signs Vital Signs Date Time Temp Pulse Resp B/P Pulse O2 O2 Flow FiO2 Ox Delivery Rate 02/10 912 75 18 127/56 96 3 02/10 912 98.0 73 18 127/46 92 02/09 0810 99.0 85 16 142/75 91 02/09 0809 89 02/09 0717 99.0 83 16 151/60 90 General Appearance normal appearance, WD/WN, mild distress, very hard of hearing Neck normal inspection, non-tender, supple, full range of motion Respiratory Status Yes: trachea midline, chest symmetrical, non tender chest. No: respiratory distress. Lung Sounds bilateral: normal breath sounds, lungs clear. 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 No Comment Patient turned over to Dr Tinajero at 08:00am, pending workup. Results/Orders Laboratory Tests 02/09/17 0827: Chlamy pneum (TEM-PCR) NOT DETECTED, Adenovirus (PCR) NOT DETECTED, B. pertussis DNA (PCR) NOT DETECTED, Coronavirus OC43 (PCR) NOT DETECTED, Coronavirus HKU1 ( PCR) NOT DETECTED, Coronavirus 229E (PCR) NOT DETECTED, Coronavirus NL63 (PCR) NOT DETECTED, Human Metapneumovir PCR NOT DETECTED, Influenza A (H1) PCR NOT DETECTED, Influ A (H1N1/09) PCR NOT DETECTED, Influenza A (H3) PCR NOT DETECTED, Influenza Type A (PCR) NOT DETECTED, Influenza Type B (PCR) NOT DETECTED, M. pneumoniae (PCR) NOT DETECTED, Parainfluenza 1 (PCR) NOT DETECTED, Parainfluenza 2 (PCR) NOT DETECTED, Parainfluenza 3 (PCR) NOT DETECTED, Parainfluenza 4 (PCR) NOT DETECTED, RSV (PCR) NOT DETECTED, Entero/Rhino (PCR) DETECTED H 02/09/17 0754: Creatine Kinase Cancelled, CK-MB (CK-2) Rel Index Cancelled, CK and CKMB Interp Cancelled, Troponin I Cancelled 02/09/17 0748: Lactic Acid Cancelled 02/09/17 0740: Lactic Acid 3.2 H 02/09/17 0740: TSH 2.67, Free T4 Index 9.7, Thyroxine (T4) 9.7, T3 Uptake 40 H 02/09/17 0740: Amylase 83, Lipase 61 L 02/09/17 0740: Sodium 141, Potassium 3.7, Chloride 104, Carbon Dioxide 27, BUN 19 H, Creatinine 1.9 H, Estimated Creat Clear 35 L, Estimated GFR (MDRD) 34, Glucose 134 H, Calcium 8.2 L, Total Bilirubin 1.0, AST 13 L, ALT 14, Alkaline Phosphatase 78, Creatine Kinase 77, CK-MB (CK-2) Rel Index 0.6, CK and CKMB Interp < 0.5, Troponin I 0.02, Total Protein 6.4, Albumin 3.5, Globulin 2.9, Albumin/Globulin Ratio 1.2, WBC 7.8, RBC 3.84 L, Hgb 12.7 L, Hct 37.1 L, MCV 96.6, RDW 14.0, Plt Count 153, MPV 8.0, Gran % 80.4 H, Gran # 6.3, Lymphocytes % 13.0, Monocytes % 4.7, Eosinophils % 1.3, Basophils % 0.5, Lymphocytes # 1.0, Monocytes # 0.4, Eosinophils # 0.1, Basophils # 0.0, PUBS MCHC 34.2, MCH 33.0 H Current Medication Orders Sig/Cassi Start time Last Medication Dose Route Stop Time Status Admin Ceftriaxone Sodium 0 .STK-MED ONE 02/09 823 DC IV Sodium Chloride 50 ML .STK-MED ONE 02/09 821 DC IV Azithromycin 500 MG ONCE ONE 02/10 800 DC 02/09 Sodium Chloride 250 ML IV 02/09 859 1002 Ceftriaxone Sodium 1 GM ONCE ONE 02/10 800 DC 02/09 Sodium Chloride 50 ML IV 02/09 829 08 Ondansetron HCl 4 MG ONCE ONE 02/09 0745 DC 02/09 IV 02/09 746 08 Ondansetron HCl 0 .STK-MED ONE 02/09 07 DC .ROUTE Sodium Chloride 10 ML PRN PRN 02/09 07 AC IV 02/10 722 Orders Procedure Date/time Status Decision to admit 02/09 917 Active UPPER RESPIRATORY PANEL, PCR 02/10 824 Complete OXYGEN PER NURSE 02/09 075 Active BUSINESS RELATIONSHIP MANAGER 02/09 075 Active ARTERIAL BLOOD GAS REQUEST 02/09 075 Active THYROID PANEL 2 (WITH TSH) 02/10 756 Complete ELECTROCARDIOGRAM REQUEST 02/09 075 Active LIPASE 02/10 748 Complete AMYLASE 02/10 748 Complete URINALYSIS/COMPLETE 02/09 747 Active CHEST-PORTABLE 02/09 722 Active IV SALINE LOCK 02/09 722 Active CULTURE, BLOOD 02/09 722 Active LACTIC ACID 02/09 722 Complete CBC WITH AUTO DIFF 02/09 722 Complete CARDIAC ENZYMES 02/09 722 Complete CHEM 12 PROFILE 02/09 722 Complete 12 LEAD EKG-PEDRO (INITIAL) 02/09 UNK Active 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 of ischemic chgs, no ectopy, normal QRS, normal NM, normal EKG, no EKG for comparison, non-spec. ST/Twave chgs, ST elevation, ST depression, LBBB, RBBB, ectopy, abnormal Q waves XRAY/CT/US XRAY/CT/US XRAY chest XR interpretation by reviewed by me Xray Results RLL + JOSE infiltrates (Myate BLACK,Maksim Chowdhury) CM/EKG CM/EKG Comments EKG interpreted by Jc Tinajero MD: Rhythm: sinus Rate: 76 [place]: normal Ectopy: none Conduction: normal ST Segment Changes: none T Wave Changes: none Q Waves: none No evidence of acute ischemia or injury Baseline artifact present, but I consider the EKG adequate for accurate interpretation. Progress - 8:00 AM: At shift change, patient report received from Dr. Hu, and care of the patient assumed by me at this time. Patient seen and examined. He complains of a 2 day history of fevers, chills, runny nose, sore throat, productive cough. Seen at urgent treatment center couple of days ago and started on amoxicillin, but has not improved. He is also had some vomiting and diarrhea. Denies shortness of breath or chest pain. Off of Coumadin for 2 days in preparations for a surgery. Primary care physician is Dr. Stevens. 9:20 AM: I have discussed the case with Dr. Stevens who agrees to admit the patient to the hospital. We discussed the patient's clinical information, including history, exam, laboratory and radiology results and ED course. Per hospital procedure, I will write temporary bridge inpatient orders on the patient. (Tanvi BLACK, Jc) Departure Departure Time of Disposition 0800 Disposition Still a Patient Clinical Impression Primary Impression: Pneumonia Qualifiers: Pneumonia type: due to unspecified organism Laterality: right Lung location: lower lobe of lung Qualified Code: J18.1 - Lobar pneumonia, unspecified organism Secondary Impressions: Hypoxia Condition STABLE ED Critical Care Critical Care No (Maksim Hu MD) at 0805 at 1004 at 0805
[2017-02-09 07:57] LABS: HEMOGLOBIN 12.7 g/dL (14.1-18.0)
[2017-02-09 08:24] LABS: BUN 19 mg/dL (7-18)
[2017-02-09 08:27] LABS: GFR (ESTIMATED) 34 ML/MIN (>60)
[2017-02-09 08:30] LABS: CORONAVIRUS 229E NOT DETECTED (NOT DETECTE); CORONAVIRUS HKU 1 NOT DETECTED (NOT DETECTE); CORONAVIRUS NL63 NOT DETECTED (NOT DETECTE); CORONAVIRUS OC43 NOT DETECTED (NOT DETECTE)
[2017-02-09 08:39] LABS: FREE THYROXIN INDEX 9.7 ug/dl (5.93-13.13)
[2017-02-09 09:46] LABS: RHINOVIRUS/ENTEROVIRUS DETECTED (NOT DETECTE)
[2017-02-09 09:58] VITALS: BP 112/61
--- NOTE | 2017-02-09 10:04 | PHARMACY CLINIC NOTE ---
Patient Demographics Patient Demographics Admission date: 02/09/17 Date: 02/09/17 Time: 1004 Allergies Coded Allergies: sulindac (Mild, JAUNDICE 07/07/16) esomeprazole (From Nexium) (Intermediate, N/V/D 07/07/16) niacin (Intermediate, FLUSHING 07/07/16) HEIGHT- FT: 5 IN: 9.00 K.184 VTE General Information Labs: Laboratory Tests 02/09 0740 Hematology Hgb (14.1 - 18.0 g/dL) 12.7 L Hct (42.0 - 52.0 %) 37.1 L Plt Count (142 - 424 K/mm3) 153 Disclaimer The following section includes nursing documentation that has been pulled in for pharmacy review. VTE prophylaxis NQF [id number] VTE prophylaxis ordered? Yes Type of prophylaxis/treatment: KRISTAN at 1004
[2017-02-09 10:10] VITALS: BP 112/61
[2017-02-09] MEDS ORDERED: BUSPAR 10MG TAB10 MG PO (10:30)
[2017-02-09] MEDS ORDERED: ALPRAZOLAM0.25 M2 PO (10:31)
--- NOTE | 2017-02-09 11:08 | RADIOLOGY REPORT PS360 ---
CHEST-PORTABLE HISTORY: Weakness, febrile NOT FEELING WELL ORDERING PHYSICIAN: Maksim Hu MD PATIENT AGE: 86 years COMPARISON: 12/30/2016 FINDINGS: Cardiomegaly. Pacemaker device is present. Chronic changes are present in the right lung base. Patchy density present in the left mid and lower lung zone consistent with pneumonia. No acute bony anomalies. IMPRESSION: Left lower lobe pneumonia with chronic change
--- NOTE | 2017-02-09 16:13 | HISTORY AND PHYSICAL REPORT ---
Demographics: Admit date: 02/09/17 Chief complaint: Cough and congestion PRIMARY DIAGNOSIS: PNEUMONIA Allergies: Coded Allergies: sulindac (Mild, JAUNDICE 07/07/16) esomeprazole (From Nexium) (Intermediate, N/V/D 07/07/16) niacin (Intermediate, FLUSHING 07/07/16) History of present illness: History of present illness: 86-year-old white male with multiple medical problems who presented to the emergency department twice in the last 3 days of cough and congestion. Has been on amoxicillin therapy for upper respiratory infection but in spite of this has begun coughing of green sputum, low-grade temperatures and was found to be mildly hypoxic today in the emergency department and was admitted to hospital. Past medical history: Family HX Diabetes No CAD Yes Hypertension Yes Hyperlipidemia Yes Cancer Yes TB No Immunization HX DT/Tetanus Unknown Flu 2015-FSN Pneumonia Received In Past TB Test in last year No General CAD? No Angina: No [place]: No Hypertension? Yes Hyperlipidemia? Yes CHF? No DVT? No PE? No COPD? Yes Asthma? No Anemia? No GERD? Yes Gastric ulcers? No GI Bleed? No Hernia? Yes Thyroid Problems? Yes Hypothyroidism? No CVA? No Seizures? No Diabetes? No Renal Insuffiency? No UTI? No Stones? No BPH? Yes GB Disease: No Nephritic Syndrome? No Asplenia? No Hepatitis? No Sickle Cell Disease? No Arthritis? Yes Migraines? No Cataracts? No Glaucoma? No MRSA? No HIV? No TB? No Anxiety? Yes Depression? 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 No Past Surgical HX Previous Surgery?Y PACEMAKER HEART STENTS GALLBLADDER COLON RESECTION CATARACTS EAR TUBES 12/13 LESIONS FACE HERNIA SURGERY Current home meds: Active Scripts Device (Oxygen (Concentrator)) 1 UNIT IH CONSTANT #1 DEV Ref 5 Prov: 11/02/16 Device (Oxygen, Portable) 1 UNIT IH CONSTANT #1 DEV Ref 5 Prov: 11/02/16 Reported Medications Metoprolol Succinate Xl (Toprol Xl) 50 MG PO BID Tiotropium [place] (Spiriva) 18 MCG IH DAILY PRN BREATHING POLYETHYLENE GLYCOL (Miralax) 17 GM PO DAILY Furosemide (Furosemide 40MG) 40 MG PO DAILY Sucralfate (Sucralfate 1GM Tablet) 1 GM PO ACHS Amiodarone Hcl (Amiodarone 200MG) 200 MG PO DAILY Levothyroxine Sodium (Levothyroxine 0.125MG) 0.125 MG PO DAILY Alprazolam 0.25 MG PO TID #90 Ipratropium [place] (Ipratropium 0.5MG Neb Soln) 0.5 MG INH BID Melatonin 5 MG PO QHS TAMSULOSIN HCL (Tamsulosin 0.4MG) 0.4 MG PO QHS Ranitidine Hcl (Zantac) 150 MG PO DAILY Temazepam (Restoril 15MG) 15 MG PO QHS #30 Pantoprazole Sodium 40 MG PO DAILY #90 PRAVASTATIN SODIUM (Pravastatin Sodium) 40 MG PO QHS HYDROCODONE/ACETAMINOPHEN (LORTAB 5-325 (generic)) 1 TAB PO Q6HP PRN PAIN Discontinued Reported Medications AMOXICILLIN (Amoxicillin 875MG Tab) 875 MG PO BID WARFARIN SOD (Warfarin 3MG) 3 MG PO TH/SAT/SUN WARFARIN SOD (Warfarin 1MG) 1.5 MG PO MON/SUN/FRI Social Hx: Smoking HX Tobacco No Packs/day N/A Are you/the child exposed to second-hand smoke: No Alcohol Alcohol: No Hx of Drug Use Drug Use? No Patien't marital status is single Patient's support system is good Review of systems: Constitutional malaise, weakness. No: fever. Respiratory cough, shortness of breath, SOB with excertion. Cardiovascular No no symptoms reported Gastrointestinal/Abdominal abdomen distended, abdominal pain (chronic GERD symptoms) Genitourinary hematuria. No: no symptoms reported. Musculoskeletal No: no symptoms reported. Neurological No: see HPI. Comment: Patient currently in workup/pending nephrectomy for hematuria with kidney mass Exam: Lab data for last 24 hours: Laboratory Tests 02/09/17 1155: Lactic Acid 1.1 02/09/17 0827: Chlamy pneum (TEM-PCR) NOT DETECTED, Adenovirus (PCR) NOT DETECTED, B. pertussis DNA (PCR) NOT DETECTED, Coronavirus OC43 (PCR) NOT DETECTED, Coronavirus HKU1 ( PCR) NOT DETECTED, Coronavirus 229E (PCR) NOT DETECTED, Coronavirus NL63 (PCR) NOT DETECTED, Human Metapneumovir PCR NOT DETECTED, Influenza A (H1) PCR NOT DETECTED, Influ A (H1N1/09) PCR NOT DETECTED, Influenza A (H3) PCR NOT DETECTED, Influenza Type A (PCR) NOT DETECTED, Influenza Type B (PCR) NOT DETECTED, M. pneumoniae (PCR) NOT DETECTED, Parainfluenza 1 (PCR) NOT DETECTED, Parainfluenza 2 (PCR) NOT DETECTED, Parainfluenza 3 (PCR) NOT DETECTED, Parainfluenza 4 (PCR) NOT DETECTED, RSV (PCR) NOT DETECTED, Entero/Rhino (PCR) DETECTED H 02/09/1740: Lactic Acid 3.2 H 02/09/17739: TSH 2.67, Free T4 Index 9.7, Thyroxine (T4) 9.7, T3 Uptake 40 H 02/09/17739: Amylase 83, Lipase 61 L 02/09/17739: Sodium 141, Potassium 3.7, Chloride 104, Carbon Dioxide 27, BUN 19 H, Creatinine 1.9 H, Estimated Creat Clear 35 L, Estimated GFR (MDRD) 34, Glucose 134 H, Calcium 8.2 L, Total Bilirubin 1.0, AST 13 L, ALT 14, Alkaline Phosphatase 78, Creatine Kinase 77, CK-MB (CK-2) Rel Index 0.6, CK and CKMB Interp < 0.5, Troponin I 0.02, Total Protein 6.4, Albumin 3.5, Globulin 2.9, Albumin/Globulin Ratio 1.2, PT 16.8 H, INR 1.55 H, WBC 7.8, RBC 3.84 L, Hgb 12.7 L, Hct 37.1 L, MCV 96.6, RDW 14.0, Plt Count 153, MPV 8.0, Gran % 80.4 H , Gran # 6.3, Lymphocytes % 13.0, Monocytes % 4.7, Eosinophils % 1.3, Basophils % 0.5, Lymphocytes # 1.0, Monocytes # 0.4, Eosinophils # 0.1, Basophils # 0.0, PUBS MCHC 34.2, MCH 33.0 H Microbiology 02/10 748 BLOOD: Anaerobic Blood Culture - CAN Cancelled: Cancelled via OE: DUPLICATE 02/10 748 BLOOD: Aerobic Blood Culture - CAN Cancelled: Cancelled via OE: DUPLICATE 02/10 748 BLOOD: Anaerobic Blood Culture - CAN Cancelled: Cancelled via OE: DUPLICATE 02/10 748 BLOOD: Aerobic Blood Culture - CAN Cancelled: Cancelled via OE: DUPLICATE 02/10 740 BLOOD: Anaerobic Blood Culture - RECD 02/10 740 BLOOD: Aerobic Blood Culture - RECD 02/10 740 BLOOD: Anaerobic Blood Culture - RECD 02/10 740 BLOOD: Aerobic Blood Culture - RECD Admission vital signs: 1ST Vital Signs Result Date Time Pulse Ox 90 02/09 717 B/P 151/60 02/09 717 Temp 99.0 02/09 717 Pulse 83 02/09 717 Resp 16 02/09 717 O2 Flow Rate 3 02/10 912 O2 Delivery OXYGEN 02/09 958 Additional information: Patient is talkative, alert, oriented. ENT exam clear. Heart rate irregular, rate controlled as previously noted. Abdomen is soft and nontender. Lungs have rhonchi and crackles in the right lower lung field. Left side fairly clear. No cyanosis. No edema. Plan: Problem List 1. Pneumonia 2. Hypoxia Plan: The patient has failed outpatient therapy. Admit to hospital for IV antibiotics, enhanced pulmonary toilet. The patient has failed outpatient therapy. Admit to hospital for IV antibiotics, enhance pulmonary toilet. at 1613
[2017-02-09 16:21] VITALS: BP 122/70
[2017-02-09 20:03] VITALS: BP 125/55
[2017-02-09 20:13] VITALS: BP 125/55
[2017-02-10] VITALS (7 sets, daily range): BP systolic 96–125; BP diastolic 42–70
--- NOTE | 2017-02-10 06:30 | ACUTE CARE PROGRESS NOTE (QUA) ---
Progress Notes Subjective Date 02/10/17 Time 0630 Note Patient continues to complain of some coughing. Has coughed up some blood-tinged sputum. Lungs have rhonchi, better air movement than yesterday. Heart rate regular. Abdomen is soft. No edema. Assessment/Plan Problem List 1. Pneumonia Qualifiers: Pneumonia type: due to unspecified organism Laterality: right Lung location: lower lobe of lung Qualified Code: J18.1 - Lobar pneumonia, unspecified organism 2. Hypoxia Patient condition Improving Plan: continue current care, await sputum cultures. Continue current medications. Oxygen support as needed. This inpt stay is expected to cross 2 MNs from start of care Yes at 0630
[2017-02-11 04:27] VITALS: BP 137/78
--- NOTE | 2017-02-11 07:24 | ACUTE CARE PROGRESS NOTE (QUA) ---
Progress Notes Subjective Date 02/11/17 Time 0723 Note Patient is about the same, including his unusual affect and multiple questions which are at his baseline. Lungs have rhonchi in both lower lung [place]. But clearer air movement. Abdomen is soft, heart rate regular. No edema. Unfortunately sputum culture has not been sent from his room. Objective Findings Last VS-Temp:98.6 B/P:137/78 Pulse:122 Resp:20 SaO2:90 OXYGEN Last weight lbs:190 oz:0 K.184 Method:Bed Scales Assessment/Plan Problem List 1. Pneumonia Qualifiers: Pneumonia type: due to unspecified organism Laterality: right Lung location: lower lobe of lung Qualified Code: J18.1 - Lobar pneumonia, unspecified organism 2. Hypoxia Patient condition Improving Plan: continue current care, await culture results. Saline lock IV fluids today. This inpt stay is expected to cross 2 MNs from start of care Yes at 0724
[2017-02-11 08:00] VITALS: BP 137/59
[2017-02-11] MEDS ORDERED: IPRATROPIUM 2.2.5 ML INH (10:52)
[2017-02-11] MEDS ORDERED: WARFARIN 3MG TAB3 MG PO (11:32)
[2017-02-11] MEDS ORDERED: WARFARIN SODIUM1 MG PO (11:34)
[2017-02-11] MEDS ORDERED: LEADER MELATONIN5 MG PO (11:37)
[2017-02-11 12:00] VITALS: BP 141/67
[2017-02-11 16:00] VITALS: BP 155/73
[2017-02-11 19:41] VITALS: BP 157/69
[2017-02-11 20:20] VITALS: BP 157/69
[2017-02-12] VITALS (8 sets, daily range): BP systolic 122–165; BP diastolic 68–91
--- NOTE | 2017-02-12 08:15 | ACUTE CARE PROGRESS NOTE (QUA) ---
Progress Notes Subjective Date 02/12/17 Time 0813 Note Patient continues to feel "worse" but is very nonspecific about his symptoms. Nurses report that he has not been walking over the past day or so. Heart rate irregular, rate controlled, lungs have lots of rhonchi but at his baseline. Abdomen soft, nontender. Urinary output is T colored/blood-tinged but this is at baseline given his renal mass issues. Of note patient was scheduled for nephrectomy on Sunday. Objective Findings Last VS-Temp:98.1 B/P:142/91 Pulse:134 Resp:22 SaO2:91 OXYGEN Last weight lbs:190 oz:0 K.184 Method:Bed Scales Assessment/Plan Problem List 1. Pneumonia Qualifiers: Pneumonia type: due to unspecified organism Laterality: right Lung location: lower lobe of lung Qualified Code: J18.1 - Lobar pneumonia, unspecified organism 2. Hypoxia Patient condition Stable Plan: continue current care, continue to await sputum culture. Recheck labs today given his weakness. Recheck chest x-ray. PT evaluation. This inpt stay is expected to cross 2 MNs from start of care Yes at 0815
[2017-02-12 08:45] LABS: LYMPH # 0.3 K/mm3 (0.7-4.5)
[2017-02-12 08:51] LABS: HEMOGLOBIN 10.7 g/dL (14.1-18.0)
[2017-02-12 10:34] LABS: NEUTROPHILS 86 % (42-76)
[2017-02-12] MEDS ORDERED: AMOXICILLIN875 MG PO (10:39)
[2017-02-12] MEDS ORDERED: FUROSEMIDE40 MG PO (10:40)
[2017-02-12] MEDS ORDERED: SUCRALFATE 1GM T1 GM PO (10:46)
[2017-02-13] VITALS (9 sets, daily range): BP systolic 95–135; BP diastolic 48–86
--- NOTE | 2017-02-13 08:38 | ACUTE CARE PROGRESS NOTE (QUA) ---
Progress Notes Subjective Date 02/13/17 Time 0730 Note Patient is sitting up in chair eating breakfast. States he continues to feel weak. Alert and oriented x 3. Rhythm irregular, tachycardia. A. Fib 128 on bedside monitor. Lung sounds with scattered rhonchi, crackles LLL. Trace ankle edema. Abdomen soft and nontender Patient/family reports: weak Nursing reports: no complaints Objective Findings Last VS-Temp:98.1 B/P:111/61 Pulse:111 Resp:20 SaO2:95 OXYGEN Last weight lbs:190 oz:0 K.184 Method:Bed Scales Reviewed: medications, vital signs, lab results, radiology report Assessment/Plan Problem List 1. Pneumonia Assessment/Plan: Continue IV antibiotics and nebulizer treatments. Qualifiers: Pneumonia type: due to unspecified organism Laterality: right Lung location: lower lobe of lung Qualified Code: J18.1 - Lobar pneumonia, unspecified organism 2. Hypoxia Assessment/Plan: Improving, 95% on 3L/NC this morning. 3. Atrial fibrillation with rapid ventricular response Assessment/Plan: Change nebulizer treatments from albuterol to xopenex. Consult cardiology. 4. Hematuria Assessment/Plan: Related to renal carcinoma for which he was scheduled for a nephrectomy tomorrow. His was previously on Coumadin; however it was discontinued due to blood loss related to this tumor. Patient condition Stable Plan: continue current care This inpt stay is expected to cross 2 MNs from start of care Yes at 0838
--- NOTE | 2017-02-13 10:52 | ACUTE CARE PROGRESS NOTE (QUA) ---
Progress Notes Subjective Date 02/13/17 Time 1052 Assessment/Plan Problem List 1. Pneumonia 2. Hypoxia 3. Atrial fibrillation with rapid ventricular response 4. Hematuria This inpt stay is expected to cross 2 MNs from start of care Yes Antibiotic Stewardship (2) Current Culture Results Microbiology 02/11 1005 SPUTUM: Sputum Culture - RES 02/11 1005 SPUTUM: Gram Stain - RES 02/09 0748 BLOOD: Anaerobic Blood Culture - CAN Cancelled: Cancelled via OE: DUPLICATE 02/10 748 BLOOD: Aerobic Blood Culture - CAN Cancelled: Cancelled via OE: DUPLICATE Infxn that will respond? Yes Right drug,dose,and route? Yes More targeted antbx? No at 1052
--- NOTE | 2017-02-13 11:44 | CONSULT NOTE ---
Standard Demographics Patient Demo Date of Consultation: 02/13/17 Referring Provider: Serafin Stevens MD Reason for Consultation: A. fib with RVR PRIMARY DIAGNOSIS: PNEUMONIA Problem list Problem list: 1. CAD A. ANEUDY x2 to proximal-mid LAD 02/19/2007, Dr Esha Reyna LVEF 50-60% by echo 02/2016 with mild MR/AR 2. Recurrent Pneumonia, twice in 2017 3. PAF A. Chronic Amiodarone and Coumadin therapy B. Due to hematuria, coumadin stopped 01/2017, in preparation for nephrectomy 4. Pacer in situ 5. CRI, stage 3, creatinine 1.9 6. HTN 7. TYLER 8. Renal mass A. plans for nephrectomy, 02/2017 History of present illness: History of present illness: 86-year-old white male with multiple medical problems who presented to the emergency department twice in the last 3 days of cough and congestion. Has been on amoxicillin therapy for upper respiratory infection but in spite of this has begun coughing of green sputum, low-grade temperatures and was found to be mildly hypoxic today in the emergency department and was admitted to hospital. The above per Dr. Stevens During hospitalization the patient has noted to be in atrial flutter ablation with a rapid ventricular response. He has chronic atrial fibrillation for which he is on amiodarone and Coumadin therapy. Cardiology consulted for evaluation and recommendations. Past Medical History: General: Hypertension Yes CVA No Seizures No TB No COPD Yes Asthma No Diabetes No Angina No UT No Hyperlipidemia Yes Urinary Yes Cancer Yes Rheumatic H.D. No Ulcers Yes MRSA No GB Disease No Other ANXIETY Past Surgical HX: Previous Surgery?Y PACEMAKER HEART STENTS GALLBLADDER COLON RESECTION CATARACTS EAR TUBES 12/13 LESIONS FACE HERNIA SURGERY Allergies Coded Allergies: sulindac (Mild, JAUNDICE 07/07/16) esomeprazole (From Nexium) (Intermediate, N/V/D 07/07/16) niacin (Intermediate, FLUSHING 07/07/16) Home medications: Active Scripts Device (Oxygen (Concentrator)) 1 UNIT IH CONSTANT #1 DEV Ref 5 Prov: 11/02/16 Device (Oxygen, Portable) 1 UNIT IH CONSTANT #1 DEV Ref 5 Prov: 11/02/16 Reported Medications Metoprolol Succinate Xl (Toprol Xl) 50 MG PO BID Tiotropium [place] (Spiriva) 18 MCG IH DAILY PRN BREATHING POLYETHYLENE GLYCOL (Miralax) 17 GM PO DAILY AMOXICILLIN (Amoxicillin 875MG Tab) 875 MG PO BID Furosemide (Furosemide 40MG) 40 MG PO DAILY Sucralfate (Sucralfate 1GM Tablet) 1 GM PO ACHS Amiodarone Hcl (Amiodarone 200MG) 200 MG PO DAILY Levothyroxine Sodium (Levothyroxine 0.125MG) 0.125 MG PO DAILY Alprazolam 0.25 MG PO TID #90 Ipratropium [place] (Ipratropium 0.5MG Neb Soln) 0.5 MG INH BID WARFARIN SOD (Warfarin 3MG) 3 MG PO /SAT/SUN WARFARIN SOD (Warfarin 1MG) 1.5 MG PO SUN/SUN/SUN Melatonin 5 MG PO QHS TAMSULOSIN HCL (Tamsulosin 0.4MG) 0.4 MG PO QHS Ranitidine Hcl (Zantac) 150 MG PO DAILY Temazepam (Restoril 15MG) 15 MG PO QHS #30 Pantoprazole Sodium 40 MG PO DAILY #90 PRAVASTATIN SODIUM (Pravastatin Sodium) 40 MG PO QHS HYDROCODONE/ACETAMINOPHEN (LORTAB 5-325 (generic)) 1 TAB PO Q6HP PRN PAIN Current Medications: Current Medications Levalbuterol HCl 1.25 MG TIDRT INH Acetaminophen 0 .STK-MED ONE PO (DC) Hydrocodone Bitart/Acetaminophen 0 .STK-MED ONE PO (DC) Temazepam 0 .STK-MED ONE PO (DC) Acetaminophen 0 .STK-MED ONE PO (DC) Ceftriaxone Sodium 1 GM Q24H IV Sodium Chloride 50 ML Amiodarone HCl 200 MG DAILY PO Aspirin 81 MG DAILY PO Azithromycin 500 MG DAILY IV Sodium Chloride 250 ML Levothyroxine Sodium 0.125 MG DAILY PO Lisinopril 5 MG DAILY PO Loratadine 10 MG DAILY PO Pantoprazole Sodium 40 MG DAILY PO Polyethylene Glycol 17 GM DAILY PO Buspirone HCl 10 MG BID PO Metoprolol Succinate 50 MG BID PO Pravastatin Sodium 40 MG QHS PO (CKDr) Tamsulosin HCl 0.4 MG QHS PO Temazepam 15 MG QHS PO Albuterol 2.5 MG QID INH (DC) Metoclopramide HCl 5 MG AC PO Acetaminophen 650 MG Q4HP PRN PO Hydrocodone Bitart/Acetaminophen 1 TAB Q6HP PRN PO Nicotine 21 MG DAILYP PRN TD Ondansetron HCl 4 MG Q6HP PRN IV Sodium Chloride 10 ML PRN PRN IV Tiotropium [place] 18 MCG DAILY PRN IH Immunization HX DT/Tetanus Unknown Flu 2015-FSN Pneumonia RECEIVED IN PAST TB Test in last year No Family history Family HX Family Hx Insignificant No Diabetes No CAD Yes Hypertension Yes Hyperlipidemia Yes Cancer Yes TB No Social Hx: Smoking HX Tobacco No Packs/day N/A Are you/the child exposed to second-hand smoke: No Alcohol Alcohol: No Hx of Drug Use Drug Use? No Patien't marital status is Patient's support system is good Review of systems: Constitutional weakness. Respiratory shortness of breath, SOB with excertion. Cardiovascular palpitations Gastrointestinal/Abdominal No no symptoms reported Genitourinary No: no symptoms reported. Musculoskeletal back pain. Neurological No: no symptoms reported. Exam: Admission Vital Signs: 1ST Vital Signs Result Date Time Pulse Ox 90 02/09 0717 B/P 151/60 02/09 0717 Temp 99.0 02/09 0717 Pulse 83 / 0717 Resp 16 02/09 0717 O2 Flow Rate 3 02/09 0912 O2 Delivery OXYGEN 02/09 0958 Last Vital Signs: Vital Signs Result Date Time Pulse Ox 95 / 1010 B/P 111/61 / 1010 O2 Flow Rate 3 02/13 1010 Temp 98.1 / 1010 Pulse 111 / 1010 Resp 20 02/13 1010 O2 Delivery OXYGEN 02/13 0757 Exam General appearance: alert, awake, no acute distress Neck: no carotid bruit, no JVD Cardiovascular: tachycardic and irregularly irregular. Telemetry shows atrial fibrillation in the rate of 100-120 bpm. Respiratory: good respiratory effort with decreased breath sounds at the LEFT base with rhonchi. ABD: soft, no tenderness Extremities: moves all, no peripheral edema Neuro: alert, intact, oriented Laboratory data: Laboratory Tests 02/12/17 0825: Sodium 142, Potassium 3.7, Chloride 108 H, Carbon Dioxide 23, BUN 19 H, Creatinine 1.5 H, Estimated Creat Clear 43 L, Estimated GFR (MDRD) 44, Glucose 132 H, Calcium 8.2 L, Total Bilirubin 1.5 H, AST 21, ALT 18, Alkaline Phosphatase 64, Total Protein 6.1 L, Albumin 3.0 L, Globulin 3.1, Albumin/ Globulin Ratio 1.0 L, WBC 6.3, RBC 3.27 L, Hgb 10.7 L, Hct 31.5 L, MCV 96.5, RDW 13.7, Plt Count 131 L, MPV 8.7, Gran % 88.7 H, Gran # 5.6, Total Counted 100, Lymphocytes % 5.0 L, Monocytes % 5.7, Eosinophils % 0.3, Basophils % 0.3, Neutrophils 86 H, Band Neutrophils 1, Lymphocytes (Manual) 6 L, Lymphocytes # 0.3 L, Monocytes (Manual) 7, Monocytes # 0.4, Eosinophils # 0.0, Basophils # 0.0, Platelet Estimate NORMAL, PUBS MCHC 33.9, MCH 32.7 H Microbiology Date/Time Procedure - Status Source Growth 02/11 1005 Sputum Culture - RES SPUTUM 02/11 1005 Gram Stain - RES SPUTUM Plan: Assessment: 1. Atrial fibrillation, chronic, with recent exacerbation of rate, likely due to LEFT lower lobe pneumonia. Patient currently on home doses of metoprolol and amiodarone. Coumadin has been held due to recent hematuria with plans for nephrectomy due to possible renal mass. 2. LEFT lower lobe pneumonia, on antibiotics 3. Mild anemia, possibly dilutional effect from IVF 4. Mild thrombocytopenia 5. History of hypertension 6. Pacemaker in situ 7. History of coronary artery disease, clinically stable at this time 8. Chronic kidney disease stage 2-3, stable 9. Advanced age with generalized debility Recommendations: Heart rate currently trending down on current medical therapy. Would consider holding lisinopril temporarily and increasing metoprolol, if needed, until pneumonia has been completely treated. Additional therapy in the form of digoxin could be considered since patient has a pacemaker in place. Will start Digoxin 0.125 mg daily. at 1223
[2017-02-14 03:57] VITALS: BP 128/92
[2017-02-14 04:06] VITALS: BP 139/84
--- NOTE | 2017-02-14 07:05 | ACUTE CARE PROGRESS NOTE (QUA) ---
Progress Notes Subjective Date 02/14/17 Time 0704 Note Overall patient feels somewhat better. Has been afebrile. Lungs have rhonchi, good air movement. Heart rate slightly tachycardic but at his baseline. Abdomen soft. Patient is alert and oriented. Objective Findings Last VS-Temp:98.4 B/P:139/84 Pulse:126 Resp:20 SaO2:92 ROOM AIR Last weight lbs:190 oz:0 K.184 Method:Bed Scales Assessment/Plan Problem List 1. Pneumonia Qualifiers: Pneumonia type: due to unspecified organism Laterality: right Lung location: lower lobe of lung Qualified Code: J18.1 - Lobar pneumonia, unspecified organism 2. Hypoxia 3. Atrial fibrillation with rapid ventricular response 4. Hematuria 5. Enterobacter cloacae pneumonia Patient condition Improving, Stable Plan: continue current care, initiate discharge plan This inpt stay is expected to cross 2 MNs from start of care Yes Antibiotic Stewardship (2) Infxn that will respond? Yes Right drug,dose,and route? Yes More targeted antbx? No at 0705
[2017-02-14] MEDS ORDERED: DIGOX0.125 MG PO (07:08)
[2017-02-14] MEDS ORDERED: OMNICEF 300 MG300 MG PO (07:09)
--- NOTE | 2017-02-14 07:12 | DISCHARGE SUMMARY STANDARD ---
Demographics Admit date: 02/09/17 Discharge date: 02/14/17 History of present illness History of present illness 86-year-old white male with multiple medical problems who presented to the emergency department twice in the last 3 days of cough and congestion. Has been on amoxicillin therapy for upper respiratory infection but in spite of this has begun coughing of green sputum, low-grade temperatures and was found to be mildly hypoxic today in the emergency department and was admitted to hospital. Hospital Course Hospital Course: Patient was admitted, coughed up lots of sputum and felt much better after enhanced pulmonary toilet and oxygen therapy was initiated. Culture grew out Enterobacter species, sensitive to most oral antibiotics tested. Patient had recovered very nicely in regards to coughing, pulmonary excursion and temperature curve. He did have some episodes of rapid heart rate, cardiology was consulted, made recommendations including the institution of low-dose digoxin therapy which was done. This morning patient felt better, and has been eating well. Please see my discharge note for discharge examination details. Patient will be discharged home with home health services today, he is homebound because of dyspnea with exertion, shortness of air and increasing work of breathing with leaving his home. He will need evaluation for PT/OT, he will also need lab work done including a complete blood count and BMP on Sunday, February 16. He has a follow-up appointment in my office next Sunday. He also needs to follow-up in urology. 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 He was scheduled for nephrectomy today, but obviously that has been postponed because of his bacterial pneumonia. He will follow-up in urology clinic in a week and a half. Because of his ongoing hematuria warfarin will be held. Discharge diagnoses Problem List 1. Pneumonia 2. Hypoxia 3. Atrial fibrillation with rapid ventricular response 4. Hematuria 5. Enterobacter cloacae pneumonia Medications Medications: Discharge meds are as noted. Follow up Follow up in office in: 6 DAYS with: CYNDI METZGER APRN at 0712
[2017-02-14 07:45] VITALS: BP 139/84; BP 141/76
[2017-02-14 08:00] VITALS: BP 141/76
[2017-02-14 09:40] VITALS: BP 141/76
--- NOTE | 2017-02-14 14:48 | RADIOLOGY REPORT PS360 ---
CHEST(2 VIEWS-NOT PORTABLE) HISTORY: Cough and shortness of breath cough ORDERING PHYSICIAN: Serafin Stevens MD PATIENT AGE: 86 years COMPARISON: 02/09/2017 FINDINGS: Borderline cardiomegaly without failure. Bipolar pacer remains in place. Consolidation is present involving the right midlung and right lower lobe consistent with right-sided pneumonia. There are small bilateral pleural effusions. No acute bony anomalies. IMPRESSION: Right-sided pneumonia with small bilateral effusions.
== END 2017-02-14 10:30 | disposition home health service (06) | DRG 179 ==
LOC: ER 07:09 → 2ND 09:20 → ER 09:20 → 2ND 10:13
PROVIDERS: Emergency Medicine; Internal Medicine Adolescent Medicine
DX: J15.6 Pneumonia due to other Gram-negative bacteria (principal); I48.91 Unspecified atrial fibrillation; J44.9 Chronic obstructive pulmonary disease, unspecified; I10 Essential (primary) hypertension; Z95.5 Presence of coronary angioplasty implant and graft; Z95.0 Presence of cardiac pacemaker; Z79.01 Long term (current) use of anticoagulants
CPT/HCPCS: J0456; J2405

== ENCOUNTER → 2017-02-16 | Outpatient (CLI) | payer MEDICARE ==
[~2017-02-16] MED LIST changes: +DIGOX0.125 MG PO; +FUROSEMIDE40 MG PO; +IPRATROPIUM 2.2.5 ML INH; +LEADER MELATONIN5 MG PO; +OMNICEF 300 MG300 MG PO; +SUCRALFATE 1GM T1 GM PO; +WARFARIN SODIUM1 MG PO
[2017-02-16 13:58] LABS: BUN 17 mg/dL (7-18)
[2017-02-16 14:00] LABS: GFR (ESTIMATED) 44 ML/MIN (>60)
[2017-02-16 15:00] LABS: HEMOGLOBIN 10.4 g/dL (14.1-18.0); LYMPH # 0.7 K/mm3 (0.7-4.5); LYMPH % 14.9 % (10-50)
== END ==
LOC: LAB 13:11
PROVIDERS: Internal Medicine Adolescent Medicine
DX: I10 Essential (primary) hypertension (principal)

== ENCOUNTER 2017-04-17 09:40 | Outpatient (CLI) | payer MEDICARE | END 2017-04-17 14:28 | LOC: ACC 09:40 | DX: Z95.0 Presence of cardiac pacemaker (principal); Z95.5 Presence of coronary angioplasty implant and graft; Z79.01 Long term (current) use of anticoagulants; Z51.81 Encounter for therapeutic drug level monitoring | CPT/HCPCS: G0463 ==

== ENCOUNTER 2017-05-04 09:14 | Emergency (ER) | payer MEDICARE ==
[~2017-05-04] VITALS: Ht 175.3 cm; Wt 84.4 kg
[2017-05-04] MEDS ORDERED: MIRTAZAPINE15 M3 PO (09:39)
[2017-05-04 09:40] LABS: URINE BLOOD 3+ (NEG)
--- NOTE | 2017-05-04 09:40 | Emergency Room Report ---
History of Present Illness Time Seen by MD [id number] Presenting Problem in Triage Pt arrived:Walked Presenting Problem:PT STATES THAT FOR 2 WEEKS HE HAS HAD BLOOD IN HIS URINE. IN MARCH PT HAD HIS LEFT KIDNEY TAKING OUT FOR CANCER. 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 N Clinical Suspician of Infection? N Mental Status: 1 - Regular (Normal Baseline) Sepsis Risk:Low Sepsis Risk Have you (or family members/close friends) recently traveled outside the [place]? N If Yes, where/when: Have you had exposure to infectious disease within the past month? N TB? Other? Specify: Acute gross hematuria, painless, intermittent, x two weeks. Takes Coumadin and aspirin; INR checked last week at PCP office and family states was normal. He denies hematemesis, denies melena, denies abdominal pain. No dysuria or frequency; no abdominal or flank pain. 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 Post operatively, his urine has been clear until two weeks ago. He denies fever or vomiting, but reports a little bit of weight loss. No night sweats. No chest pain, no SOB, no flu sx. ALLERGIES Coded Allergies: sulindac (Mild, JAUNDICE 07/07/16) esomeprazole (From Nexium) (Intermediate, N/V/D 07/07/16) niacin (Intermediate, FLUSHING 07/07/16) Home Medications Active Scripts Digoxin (Digox) 0.125 MG PO DAILY #30 TAB Ref 2 Prov: 02/14/17 CEFDINIR (Cefdinir) 300 MG PO BID #14 CAP Prov: 02/14/17 Device (Oxygen (Concentrator)) 1 UNIT IH CONSTANT #1 DEV Ref 5 Prov: 11/02/16 Device (Oxygen, Portable) 1 UNIT IH CONSTANT #1 DEV Ref 5 Prov: 11/02/16 Reported Medications Metoprolol Succinate Xl (Toprol Xl) 50 MG PO BID Tiotropium [place] (Spiriva) 18 MCG IH DAILY PRN BREATHING POLYETHYLENE GLYCOL (Miralax) 17 GM PO DAILY Furosemide (Furosemide 40MG) 40 MG PO DAILY Sucralfate (Sucralfate 1GM Tablet) 1 GM PO ACHS Amiodarone Hcl (Amiodarone 200MG) 200 MG PO DAILY Levothyroxine Sodium (Levothyroxine 0.125MG) 0.125 MG PO DAILY Alprazolam 0.25 MG PO TID #90 Ipratropium [place] (Ipratropium 0.5MG Neb Soln) 0.5 MG INH BID Melatonin 5 MG PO QHS TAMSULOSIN HCL (Tamsulosin 0.4MG) 0.4 MG PO QHS Ranitidine Hcl (Zantac) 150 MG PO DAILY Temazepam (Restoril 15MG) 15 MG PO QHS #30 Pantoprazole Sodium 40 MG PO DAILY #90 Mirtazapine 15 MG PO DAILY #30 PRAVASTATIN SODIUM (Pravastatin Sodium) 40 MG PO QHS HYDROCODONE/ACETAMINOPHEN (LORTAB 5-325 (generic)) 1 TAB PO Q6HP PRN PAIN History Medical History General CAD? No Angina: No CT: No Hypertension? Yes Hyperlipidemia? Yes CHF? No DVT? No PE? No COPD? Yes Asthma? No Anemia? No GERD? Yes Gastric ulcers? No GI Bleed? No Hernia? Yes Thyroid Problems? Yes Hypothyroidism? No CVA? No Seizures? No Diabetes? No Renal Insuffiency? No End Stage Renal Disease? No UTI? No Stones? No BPH? Yes GB Disease: No Nephritic Syndrome? No Asplenia? No Hepatitis? No Sickle Cell Disease? No Arthritis? Yes Migraines? No Cataracts? No Glaucoma? No MRSA? No HIV? No TB? No Anxiety? Yes Depression? 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 No Immunization Hx DT/Tetanus Unknown Flu 2015-FSN Pneumonia Received In Past Surgical Hx Previous Surgery?Y PACEMAKER HEART STENTS GALLBLADDER COLON RESECTION CATARACTS EAR TUBES 12/13 LESIONS FACE HERNIA SURGERY Family History Family Hx Diabetes No CAD Yes Hypertension Yes Hyperlipidemia Yes Cancer Yes TB No Social History Smoking Hx Smoker: Never Smoker Tobacco: No Packs/day N/A Alcohol Alcohol: No Review of Systems All Other Systems Reviewed and Negative Constitutional see HPI Genitourinary see HPI. Physical Exam Vital Signs Vital Signs Date Time Temp Pulse Resp B/P Pulse O2 O2 Flow FiO2 Ox Delivery Rate 05/04 1049 97.6 77 16 139/66 97 05/04 0919 73 18 128/57 98 General Appearance normal appearance, WD/WN, no apparent distress (afebrile) Eye Exam - bilateral eye normal exam, bilateral eye PERRL, bilateral eye EOMI Neck normal inspection, non-tender, supple, full range of motion Respiratory Status Yes: trachea midline, chest symmetrical, non tender chest. No: respiratory distress, tender on palpation, use of accessory muscles, pain on inspiration, pain on expiration, productive cough, non productive cough. Lung Sounds bilateral: normal breath sounds, lungs clear. Cardiovascular normal exam, regular rate/rhythm, no peripheral edema, no gallop, no JVD, no murmur, no rub, normal peripheral pulses Gastrointestinal normal bowel sounds, normal exam, non tender, soft, no organomegaly, no pulsatile mass, no guarding, no rebound, Nephrectomy scar on LL abdomen with grimy steri strips loosened but intact; wound is healing quite well with no drainage, no fluctuance, no redness. Steri strips removed by RN. Back no CVA tenderness, no vertebral tenderness, bowel/bladder continent, gait normal, strt leg raising(L)-NML, strt leg raising(R)-NML Extremities non-tender, normal range of motion, normal inspection, normal capillary refill, no calf tenderness, no pedal edema Strength 5 Upper Ext (L), 5 Upper Ext (R), 5 Lower Ext (L), 5 Lower Ext (R) Neurologic alert, normal exam, no motor/sensory deficits, oriented x 3 Glascow Coma Scale Glascow Coma Scale Response Value EYE response: 4 Spontaneously 4 MOTOR response: 6 OBEYS 6 VERBAL response: 5 Oriented & Converses 5 Total 15 Skin intact, normal color, warm/dry Medical Decision Making LABS/Meds/Orders Pt receiving controlled substance in ED? No Results/Orders Laboratory Tests 05/04/17 0950: Sodium 143, Potassium 3.9, Chloride 106, Carbon Dioxide 32, BUN 27 H, Creatinine 3.0 H, Estimated Creat Clear 21 L, Estimated GFR (MDRD) 20, Glucose 122 H, Calcium 8.4 L, Total Bilirubin 0.4, AST 19, ALT 20, Alkaline Phosphatase 72, Total Protein 6.5, Albumin 3.5, Globulin 3.0, Albumin/Globulin Ratio 1.2, PT 20.3 H, INR 1.87 H, WBC 5.1, RBC 3.31 L, Hgb 10.6 L, Hct 31.6 L, MCV 95.3, RDW 14.8, Plt Count 175, MPV 8.1, Gran % 71.7, Gran # 3.7, Lymphocytes % 18.1, Monocytes % 5.7, Eosinophils % 3.8, Basophils % 0.7, Lymphocytes # 0.9, Monocytes # 0.3, Eosinophils # 0.2, Basophils # 0.0, PUBS MCHC 33.4, MCH 31.8 H 05/04/17 0925: Urine Color SHANELLE, Urine Appearance CLOUDY, Urine pH 7.0, Ur Specific [place] 1.020, Urine Protein 2+ H, Urine Ketones NEGATIVE, Urine Blood 3+ H, Urine Nitrate NEGATIVE, Urine Bilirubin 1+ H, Urine Urobilinogen 0.2, Ur Leukocyte Esterase NEGATIVE, Urine RBC 50-100, Urine WBC NONE, Ur Squamous Epith Cells NONE, Urine Bacteria TRACE, Urine Glucose NEGATIVE Current Medication Orders Sig/Cassi Start time Last Medication Dose Route Stop Time Status Admin Sodium Chloride 10 ML PRN PRN 05/04 0945 AC IV 05/05 0933 Orders Procedure Date/time Status DIET-NOTHING BY MOUTH 05/[address] ABD/PELVIS REQ 05/04 0935 Complete PROTHROMBIN TIME 05/04 0935 Complete CBC WITH AUTO DIFF 05/04 0935 Complete CHEM 12 PROFILE 05/04 0935 Complete IV SALINE LOCK 05/04 0933 Active URINALYSIS/COMPLETE 05/04 0933 Complete XRAY/CT/US XRAY/CT/US CT abdomen, pelvis CT interpretation by reviewed by me (report reviewed) Time results known: 1102 CT Results abnormal, hematoma vs. neoplasm per report Progress ED Progress Notes Date 05/04/17 Time 1027 Comment Stable hematocrit; BUN has been in the mid 20's in Oct, 2016. Patient comfortable and ambulatory; awaiting CT result. Departure Departure Time of Disposition 1102 Disposition DC Home or Self Care(routine) Clinical Impression Primary Impression: Hematuria Qualifiers: Hematuria type: idiopathic Glomerular morphologic changes: unspecified whether glomerular morphologic changes present Qualified Code: N02.9 - Recurrent and persistent hematuria with unspecified morphologic changes Secondary Impressions: Abnormal CT of the abdomen, History of transitional cell carcinoma of kidney Condition STABLE Referrals Rodney BLACK,Serafin (Family) Elroy BLACK,Car Patient Instructions Blood in Urine Additional Instructions See Dr. Abbasi for follow up next week; call for appointment. The CT scan is abnormal but hard to make a diagnosis at this point without input from your specialist, Dr. Abbasi, and likely further testing. Discharge Counseling Counseled pt/family regarding diagnosis, test results, home care, follow up needs ED Critical Care Critical Care No at 1113
[2017-05-04 09:49] LABS: URINE BILIRUBIN - DIPSTICK 1+ (NEG)
[2017-05-04 09:57] LABS: HEMOGLOBIN 10.6 g/dL (14.1-18.0); LYMPH # 0.9 K/mm3 (0.7-4.5); LYMPH % 18.1 % (10-50)
--- NOTE | 2017-05-04 10:32 | RADIOLOGY REPORT PS360 ---
CT ABD PELVIS W/O CONTRAST CLINICAL INDICATION: PAINLESS GROSS HEMATURIA, HX RENAL CELL CA/LT NEPHRECTOMY ORDERING PHYSICIAN: Liudmila Yeager MD PATIENT AGE: 87 years COMPARISON: 01/01/2017 TECHNIQUE: Axial images obtained with sagittal and coronal reformats. PROCEDURE: Oral Contrast: None IV Contrast: None . FINDINGS: There is chronic consolidation in the right middle lobe with air bronchograms and volume loss. Patchy density also present within the lingula and left lower lobe posteriorly. There is mild thickening of the pericardium anteriorly measuring up to 10 mm.. There is a bilobed hepatic cyst in the left hepatic lobe at 16 mm unchanged. The adrenal glands and pancreas has an unremarkable unenhanced appearance. There is a nonobstructing punctate stone in the mid aspect of the right kidney. There is a 17 mm right renal cyst. There is minimal ectasia of the right ureter. There has been an interval left nephrectomy. Abnormal soft tissue density is present medial to the spleen within the retroperitoneum in the renal bed. This area measures approximately 6 x 3 cm and could even be due to subcapsular hematoma of the spleen causing indentation of the medial aspect of the spleen. Follow-up is recommended to confirm stability or resolution. Postsurgical hematoma within the renal bed or even neoplasm in the renal bed is also a consideration. No intestinal obstruction or free air. No evidence of appendicitis or diverticulitis. There remains some mild thickening involving the base of the urinary bladder slightly eccentric toward the left. The prostate remains slightly enlarged. Dictated changes lumbar spine. IMPRESSION: 1. Interval left nephrectomy with abnormal soft tissue density medial to the medial and posterior aspect of the spleen within the retroperitoneum which could be due to a subcapsular splenic hematoma, hematoma within the renal bed or even residual or recurrent neoplasm in the renal bed. Recommend follow-up. 2. Small right renal cysts with nonobstructing right renal stone with minimal ectasia of the right ureter without evidence of obstructing stone. 3. Mild thickening along the base of the urinary bladder slightly eccentric toward the left. Could be postinflammatory or even neoplastic.
[2017-05-04 11:21] VITALS: BP 139/66
== END 2017-05-04 11:22 | disposition home or self-care (01) ==
LOC: ER 09:14
PROVIDERS: Emergency Medicine
DX: N02.9 Recurrent and persistent hematuria with unspecified morphologic changes (principal); C64.2 Malignant neoplasm of left kidney, except renal pelvis; Z79.01 Long term (current) use of anticoagulants; I10 Essential (primary) hypertension; E78.5 Hyperlipidemia, unspecified; J44.9 Chronic obstructive pulmonary disease, unspecified; Z79.82 Long term (current) use of aspirin; F41.9 Anxiety disorder, unspecified